=== PATIENT | female | born 1980 | race Caucasian/White ===

== ENCOUNTER 2018-03-09 13:33 | Outpatient (CLI) | payer BC, SELFPAY ==
[2018-03-11 10:55] LABS: HIV-1/2 Ag & Ab Screen Negative (NEGAT)
[2018-03-11 11:23] LABS: Hepatitis C Ab w Rflx HCV PCR Negative (NEGAT)
[2018-03-13 09:42] LABS: Hepatitis B Surface Ag Negative (NEGAT)
[2018-03-13 10:54] LABS: Syphilis Serology (RPR) Negative (Negative)
[2018-03-13 14:24] LABS: Chlamydia Result Negative; GC Result Negative; Specimen Description URINE
== END 2018-03-09 13:53 ==
PROVIDERS: PCP Family Medicine; Visit Provider Nurse Practitioner Family
DX: R30.0 Dysuria (principal); Z11.3 Encounter for screening for infections with a predominantly sexual mode of transmission; Z11.59 Encounter for screening for other viral diseases; Z11.4 Encounter for screening for human immunodeficiency virus [HIV]
CPT/HCPCS: 36415; 86803; 87340; 87389; 87491; 87591; 86592; 87086

== ENCOUNTER 2018-03-16 15:06 | Emergency (ER) | payer BC, SELFPAY ==
[2018-03-16] VITALS (46 sets, daily range): BP systolic 99–143; BP diastolic 62–91; PULSE 74–142; RESP 1–26; TEMP 36.7–36.8; O2SAT 94–100
--- NOTE | 2018-03-16 15:40 | DI.RAD_ITS ---
SYMPTOM/DIAGNOSIS: CHEST PAIN/TIGHTNESS PA AND LATERAL CHEST: Comparison is made with 27 April 2013. The cardiac and mediastinal contours have a normal appearance. The lungs are well inflated and clear. No infiltrate, effusion or pneumothorax is seen. IMPRESSION: Negative chest x-ray.
[2018-03-16 15:54] LABS: Abs Immature Grans 0.02 k/cumm (0.0-0.09); Absolute Basophil Count 0.04 k/cumm (0.0-0.2); Absolute Lymphocyte Count 2.59 k/cumm (1.2-3.4); Absolute Monocyte Count 0.66 k/cumm (0.11-0.7); Absolute Neutrophil Count 6.98 k/cumm (1.2-6.7); Basophils % 0.4; Eosinophils % 2.8; HCT 48.1 % (36.0-46.0); HGB 16.1 g/dL (12.0-15.5); Immature Grans % 0.2; Lymphocytes % 24.5; Mean Corp. HGB Concentration 33.5 g/dL (32.0-36.0); Mean Corpuscular Hemoglobin 29.8 pg (27.0-33.0); Mean Corpuscular Volume 89.1 fL (80-95); Mean Platelet Volume 10.6 fL (8.0-11.0); Monocytes % 6.2; Neutrophils % 65.9; Platelet Count 277 x1000/uL (130-400); RBC Distribution Width 13.2 % (11.7-14.6); White Blood Cell Count 10.59 k/cumm (4.4-10.8)
--- NOTE | 2018-03-16 15:57 | W.ED.GENAD ---
Discharge Plan Disposition Patient Disposition: HOME Condition: Good Discharge Details Chief Complaint: Chest Pain Clinical Impression: Chest pressure Primary Care Provider: Yvonne Ervin ED Provider: Jordan Pereira Home Meds and New Rx's Prescriptions: New cyclobenzaprine 10 mg tablet 10 mg PO TID Qty: 14 RF: 0 No Action fluconazole [Diflucan] 150 mg tablet 150 mg PO ONCE Qty: 1 RF: 1 cetirizine [Zyrtec] 10 MG tablet,chewable 10 mg PO DAILY RF: 0 diphenhydramine HCl [Benadryl Allergy] 25 MG tablet 25 mg PO Q4H PRN RF: 0 ibuprofen 800 MG tablet 800 mg PO DAILY RF: 0 metformin [Glucophage] 500 MG tablet 500 mg PO Q12H Qty: 180 RF: 3 spironolactone 50 MG tablet 50 mg PO DAILY Qty: 90 RF: 3 levalbuterol tartrate [Xopenex HFA] 15 GM HFA aerosol inhaler 200 puff Inhalation PRN PRNRF: 0 sumatriptan succinate 100 MG tablet 100 mg PO DAILY PRNRF: 0 Discharge Instructions Instructions: Chest Pain (ED) Additional Instructions: Please follow-up with your primary care provider on Tuesday at your scheduled appointment. If you notice any new or worsening of your symptoms please have a low threshold for return. If you notice any worsening of your symptoms, or any new symptoms such as vomiting, diarrhea, fever, chills, shortness of breath, chest pain, numbness, weakness, or fainting , please return immediately to the emergency department for reevaluation. Please follow up with your primary care provider as soon as possible for reassessment and reevaluation. As always, it was a pleasure participating in your medical care today. Referrals: Yvonne Ervin [Primary Care Provider] - Medical Decision Making This is a 37-year-old female with a past medical history of polycystic kidney disease, who presents today for evaluation of chest pain. It is been present for the last 4 days, it does not seem to be associated with activity/exertion/rest. She denies any family history of cardiac disease at a young age. She does not have any significant risk factors for pulmonary embolism. However her symptoms are associated with some shortness of breath and certainly a pleuritic component with her chest tightness. Patient is obese, but denies any other signs of trauma. This could be certainly musculoskeletal, stemming from intercostal rib pain. However differential although less likely does include atypical cardiac etiology, pulmonary embolism, or strain. We will evaluate and rule out these, and reassess. Of note the patient's vital signs are notably encouraging with no evidence of hypoxemia, tachypnea, tachycardia, or hypotension. EKG 15: 18 rate 82, sinus rhythm, intervals normal, no ST elevations or depressions, inverted T wave in V1. No Q waves. Questionable inverted T wave in lead III. No signs of significant right heart strain, no signs of STEMI. 8:23 PM Patient's laboratory workup is returned and demonstrates no significant abnormalities. No elevated white count, negative d-dimer, normal renal function, normal troponin, normal bilirubin. Chest x-ray has been read by radiology and demonstrates no evidence of acute process or abnormality. EKG shows no significant abnormalities. The patient still demonstrates mild tightness in her chest, now has some mild nausea. Repeat abdominal exam demonstrates no abdominal tenderness. She feels that her nausea is secondary to the tightness in her chest. Exam continues to show no signs of shingles, or other abnormality. We did give the patient a GI cocktail, but she felt that this was distasteful, and unfortunately spit most of it up. She has been able to tolerate ice well though, and shows no clinical signs on exam of obstruction, or abdominal abnormality. We did do one trial of concentrated DuoNeb, and the patient had no change in her symptoms with this. I do not think her symptoms represent a reactive airway component. In spite of negative laboratory workup, negative imaging studies, I did discuss with the patient potential further imaging with a CT scan of the chest neck and abdomen. Although I feel that there is no acute pathology on exam that I can appreciate clinically I did feel that this option would be potential with the patient's persistent symptoms. However after discussing it with the patient and the family the patient is requesting to hold off on any further CT imaging. I do feel that this is reasonable at this time. The patient's continued tightness of the chest and right shoulder, I do feel that there may be a musculoskeletal component with potential stress from her current home life, and I did give the patient Flexeril prior to discharge for potential muscle spasm.. The patient requesting to hold off on any CT imaging, I did discuss with her and her family the need for a very low threshold for return, as well as the importance of close follow-up with her primary care provider at her scheduled appointment this Tuesday. Patient agrees. We discussed red flags for which to return the patient understands. I have extensively reviewed the treatment plan and discharge instructions with the patient and their family. I have addressed all patient concerns at this time. The patient and family was made aware of what symptoms to monitor for that would warrant a return to the emergency department. Discussed the plan with the patient and family, they demonstrate verbal understanding and agreement with our assessment and plan at this time. FINDINGS: Lungs: Unremarkable. No consolidation. Pleural space: Unremarkable. No pleural effusion. No pneumothorax. Heart/Mediastinum: Unremarkable. No cardiomegaly. Bones/joints: Unremarkable. IMPRESSION: No acute findings. Dictated and Authenticated by: Stef Davis MD. HPI General Date/Time Provider Initiated Documentation: 03/16/18 15:39. HPI Narrative: This is a 37-year-old female with past medical history of allergies who presents today for evaluation of chest pain for the last 4 days. She states that it is been constant, it is described as a pressure-like sensation in her chest with some associated tightness and achiness. It initially started in her right shoulder and is now radiated to encompass her entire chest. She denies any tearing sensation, or rib pain. She denies any significant cough, fever, or chills. She states that today it has gotten slightly worse, it is resistant to any improvement with Tylenol or Motrin. It is now radiated to her neck shoulder and her jaw. She denies any exertional component, and it is not improved by rest. She denies any previous cardiac history, or any family history of cardiac disease at a young age. Past medical history is positive for polycystic ovarian syndrome, for which she takes spironolactone. She did have a hysterectomy. The patient denies any other associated symptoms at this time. Denies PE risk factors such as recent long car rides, immobilization, recent surgery, prior history of DVT or PE, family history of PE or DVT, morbid obesity, exogenous estrogen and smoking, hemoptysis, history of cancer. Patient denies any tobacco use, IV, or illicit drug use. Related Data Home Medications Medication Instructions Recorded Confirmed cetirizine [Zyrtec] 10 mg PO DAILY tab-cap 06/08/12 03/09/18 diphenhydramine HCl [Benadryl 25 mg PO Q4H PRN 08/14/12 03/09/18 Allergy] levalbuterol tartrate [Xopenex HFA] 200 puff INHALATION PRN PRN 08/16/12 03/09/18 ibuprofen 800 mg PO DAILY tab-cap 11/24/12 03/09/18 sumatriptan succinate 100 mg PO DAILY PRN 11/12/13 03/09/18 metformin [Glucophage] 500 mg PO Q12H #180 tab 05/27/17 03/09/18 spironolactone 50 mg PO DAILY #90 tab-cap 05/27/17 03/09/18 fluconazole 150 mg tablet 150 mg PO ONCE #1 tab 03/09/18 03/09/18 cyclobenzaprine 10 mg PO TID #14 tab 03/16/18 Previous Rx's Medication Instructions Recorded metformin [Glucophage] 500 mg PO Q12H #180 tab 05/27/17 spironolactone 50 mg PO DAILY #90 tab-cap 05/27/17 fluconazole 150 mg tablet 150 mg PO ONCE #1 tab 03/09/18 cyclobenzaprine 10 mg PO TID #14 tab 03/16/18 Allergies Allergy/AdvReac Type Severity Reaction Status Date / Time cefdinir [From Omnicef] Allergy Severe very Verified 03/09/18 13:01 bloody stools celecoxib [From Celebrex] Allergy Severe racing Verified 03/09/18 13:01 heart,SOB latex Allergy Unknown Verified 03/09/18 13:01 venom-honey bee Allergy Anaphylaxsi Verified 03/09/18 13:01 s TREE NUTS Allergy Severe Uncoded 02/21/17 12:51 General Stated Complaint: Chest Pain IDA: 3 Review of Systems Review of Systems All systems reviewed & are unremarkable except as noted in HPI and below PFSH Hirsutism (Acute 05/27/17) Depression (Acute 06/13/17) Celiac disease (Acute 05/27/17) Anxiety (Acute 05/27/17) Polycystic ovaries (Active 08/16/12) Vaginal hysterectomy Social History Smoking/Tobacco Use Status: Never Female Reproductive History Menstrual Menopause type: surgical History History 4 Para 2 Hx # Term Pregnancies Multiple births Hx # Pregnancies Ectopic pregnancies AB induced Hx Number of Living Children AB spontaneous Exam Narrative Exam Narrative: 1.Const: Well-nourished, Well-developed, appearing stated age 2.Eyes: PERRL, no conjunctival injection, and symmetrical lids. 3.ENT: Atraumatic external nose and ears. Moist MM. Neck: Symmetric, trachea midline, No thyromegaly. No evidence of airway compromise, or swelling in the posterior oropharynx. No evidence of mass or abnormality, carotid bruit, tenderness, tracheal deviation or other abnormality on palpation of the neck. 4.CVS: +S1/S2, No murmurs or gallops. Peripheral pulses 2+ and equal in all extremities. Brisk capillary refill in all extremities. Radial pulses +2 bilaterally. 5.RESP: Unlabored respiratory effort. Clear to auscultation bilaterally. No wheezes rales or rhonchi. No significant reproducible chest pain on exam. 6.GI: Soft, Nontender/Nondistended, No hepatosplenomegaly. No guarding or rebound. No abdominal pain on exam., No signs of an acute abdomen 7.MSK: Normocephalic/Atraumatic, Extremities w/o deformity or ttp No cyanosis or clubbing, Normal movement of all extremities 8.Skin: Warm, Dry. No rashes or lesions. 9.Neuro: television analyzer II-XII grossly intact. Sensation grossly intact, no focal neurologic deficits. 10.Psych: (AAO) x3. Appropriate mood and affect Course Vital Signs Temperature 36.7 C 03/16/18 15:12 Pulse 82 03/16/18 15:12 Respiratory Rate 16 03/16/18 15:12 Blood Pressure 143/83 H 03/16/18 15:12 Pulse Oximetry 98 03/16/18 15:12 Temperature 36.7 C 03/16/18 15:12 Pulse 87 03/16/18 15:36 Respiratory Rate 20 03/16/18 15:36 Respiratory Effort Non-Labored 03/16/18 15:37 Blood Pressure 125/86 03/16/18 15:36 Blood Pressure Position Sitting 03/16/18 15:12 Pulse Oximetry 98 03/16/18 15:36 Oxygen Delivery Method Room Air 03/16/18 15:36 Oxygen Flow Rate 0 03/16/18 15:36 Pain Level 5 12/13/18 15:36 Lab/Test Results Lab/Test Results: Laboratory Tests Range/Units 03/16/18 15:40 WBC (4.4-10.8) k/cumm 10.59 RBC (4.00-5.20) m/cumm 5.40 H Hgb (12.0-15.5) g/dL 16.1 H Hct (36.0-46.0) % 48.1 H MCV (80-95) fL 89.1 MCH (27.0-33.0) pg 29.8 MCHC (32.0-36.0) g/dL 33.5 RDW (11.7-14.6) % 13.2 Plt Count (130-400) x1000/uL 277 MPV (8.0-11.0) fL 10.6 Immature Gran % 0.2 Neutrophils % 65.9 Lymphocytes % 24.5 Monocytes % 6.2 Eosinophils % 2.8 Basophils % 0.4 Absolute Neutrophils (1.2-6.7) k/cumm 6.98 H Absolute Lymphocytes (1.2-3.4) k/cumm 2.59 Absolute Monocytes (0.11-0.7) k/cumm 0.66 Absolute Eosinophils (0.0-0.7) k/cumm 0.30 Absolute Basophils (0.0-0.2) k/cumm 0.04
[2018-03-16 16:07] LABS: ALT 28 U/L (12-78); AST 20 U/L (15-37); Albumin 4.1 g/dL (3.4-5.0); Alkaline Phosphatase 89 U/L (46-116); BUN 8 mg/dL (7-18); Bilirubin, Total 0.6 mg/dL (0.2-1.0); CREATININE 0.85 mg/dL (0.55-1.02); Calcium 8.8 mg/dL (8.5-10.1); Chloride 100 mmol/L (98-107); Glucose 92 mg/dL (70-100); Potassium 3.7 mmol/L (3.5-5.1); Sodium 139 mmol/L (136-145); Total Protein 8.2 g/dL (6.4-8.2)
[2018-03-16 16:09] LABS: Troponin I < 0.02 ng/mL (0.00-0.06)
[2018-03-16 16:33] LABS: D-Dimer 249 ng/mlFEU (<500)
--- NOTE | 2018-03-16 17:07 | NUR.NOTE ---
Nursing Note:Pt off unit to xray, toradol ordered, will medicate once patient is back on unit.
[2018-03-16] MEDS: Ketorolac 30 MG/ML VIAL 15 MG IVP (17:30)
--- NOTE | 2018-03-16 17:31 | DI.VRAD_ITS ---
EXAM: XR Chest, 2 Views EXAM DATE/TIME: 03/16/2018 5:12 PM CLINICAL HISTORY: 37 years old, female; Pain and signs and symptoms; Other: Chest tightness; Chest pain TECHNIQUE: XR of the chest, 2 views. COMPARISON: CR ABD FLAT UPRIGHT PA CHEST 04/27/2013 5:43 PM FINDINGS: Lungs: Unremarkable. No consolidation. Pleural space: Unremarkable. No pleural effusion. No pneumothorax. Heart/Mediastinum: Unremarkable. No cardiomegaly. Bones/joints: Unremarkable. IMPRESSION: No acute findings. Dictated and Authenticated by: Stef Davis MD. Ordering:JOSE MIGUEL Ortega MD
--- NOTE | 2018-03-16 18:20 | NUR.NOTE ---
Nursing Note:Lab in room for repeat troponin draw. pt in no acute distress. appears more comfortable.
[2018-03-16 19:04] LABS: Troponin I < 0.02 ng/mL (0.00-0.06)
[2018-03-16] MEDS: Ondansetron 4 MG/2 ML VIAL (19:25)
[2018-03-16] MEDS: Albuterol/Ipratropium 3 ML UPD VIAL UPD (19:42)
--- NOTE | 2018-03-16 19:53 | NUR.NOTE ---
Nursing Note: Pt with c/o nausea and vomiting. medicated as ordered .
[2018-03-16] MEDS: Cyclobenzaprine 10 MG TAB PO (20:28)
== END 2018-03-16 20:39 | disposition home or self-care (01) ==
PROVIDERS: Emergency Provider Student in an Organized Health Care Education/Training Program; PCP Nurse Practitioner
DX: R07.89 Other chest pain (principal); R06.02 Shortness of breath
CPT/HCPCS: 80053; 93005; 94640; 96374; 99285; 71046; 84484; 85025; 85379; 93010; J1885; J2405; J7620

== ENCOUNTER 2018-03-20 10:57 | Outpatient (REF) | payer BC, SELFPAY ==
[2018-03-20 12:11] LABS: Iron 37 ug/dL (50-175); Total Iron Binding Capacity 338 ug/dL (250-450); Transferrin Sat 11 % (15-50)
[2018-03-20 12:23] LABS: Cholesterol 150 mg/dL (50-200); Ferritin 46 ng/mL (8-388); HDL Cholesterol 51 mg/dL (40-60); LDL CHOLESTEROL 63 mg/dL (<100); Triglyceride 112 mg/dL (30-150)
== END 2018-03-20 11:17 ==
LOC: NCHCO 10:57
PROVIDERS: PCP Nurse Practitioner; Visit Provider Nurse Practitioner
DX: K76.0 Fatty (change of) liver, not elsewhere classified (principal)
CPT/HCPCS: 36415; 80061; 83721; 82728; 83540; 83550

== ENCOUNTER 2019-01-24 10:28 | Outpatient (CLI) | payer BC, SELFPAY ==
--- NOTE | 2019-01-24 09:08 | DI.RAD_ITS ---
EXAM: XR SHOULDER LT COMPLETE 2+V INDICATION: SHOULDER PAIN. COMPARISON: No exams were available for comparison TECHNIQUE: 2D digital imaging was performed. FINDINGS: The bony structures are normally mineralized. The glenohumeral and AC joints are well maintained. T here is no evidence of a fracture or dislocation.
== END 2019-01-24 10:48 ==
PROVIDERS: PCP Nurse Practitioner; Visit Provider Student in an Organized Health Care Education/Training Program
DX: M25.512 Pain in left shoulder (principal)
CPT/HCPCS: 73030

== ENCOUNTER 2019-03-12 14:09 | Outpatient (CLI) | payer BC, SELFPAY ==
[2019-03-12 15:26] LABS: ALT 34 U/L (14-59); AST 23 U/L (15-37)
== END 2019-03-12 14:29 ==
PROVIDERS: PCP Nurse Practitioner; Visit Provider Nurse Practitioner Family
DX: Z87.42 Personal history of other diseases of the female genital tract (principal)
CPT/HCPCS: 36415; 84450; 84460

== ENCOUNTER 2020-01-02 19:31 | Outpatient (REF) | payer BC, SELFPAY ==
[2020-01-04 21:16] LABS: Patient Race White; SARS-CoV-2 RNA Undetected (Undetected); SARS-CoV-2 Specimen Source Nasal
== END 2020-01-02 19:51 ==
LOC: NCHCN 19:31
PROVIDERS: PCP Nurse Practitioner; Visit Provider Nurse Practitioner Family
DX: Z20.828 Contact with and (suspected) exposure to other viral communicable diseases (principal)
CPT/HCPCS: U0003

== ENCOUNTER 2020-04-16 02:32 | Outpatient (CLI) | payer BC, SELFPAY ==
--- NOTE | 2020-04-16 07:30 | DI.MAMMO_ITS ---
EXAM: MG MAMMO SCREENING CLINICAL HISTORY: screening. TECHNIQUE: Bilateral full field digital CC and MLO mammographic images were obtained with 3D tomosyn thesis and utilizing computer aided detection (CAD). COMPARISON: None. This is a baseline mammogram. FINDINGS: There are no CAD designations. There are no spiculated masses nor malignant appearing microcalcification groups. There is no signif icant architectural distortion nor skin thickening-retraction. IMPRESSION: No radiographic evidence of malignancy. BI-RADS Category 1 - Negative Breast Density - Category B - Scattered areas of fibroglandular density Breast density Category C or D implies that the patient has dense breast tissue. Dense breast tissue can make it harder to find cancer on a mammogram. Dense breast tissue is also associated with an incr eased risk of breast cancer. This information about the result of the mammogram report was provided to the patient to raise their awareness. Use this report when you speak with the patient about their risks for breast cancer, which includes their family history. At that time, you may recommend additional screening tests (Ultrasoun d or MRI) as these tests may add significant information. A negative radiographic report should not delay biopsy if a dominant or clinically suspicious mass is present. Up to ten percent of cancers are not identified on mammography. A negative report may reinforce clinical impression. Adenosis and dense breasts may obscure an underlying neoplasm. False positive reports average 6 to 10%. Patient will receive a letter notifying them of these results.
[2020-04-16 10:17] LABS: ALT 36 U/L (14-59); AST 26 U/L (15-37)
== END 2020-04-16 02:52 ==
PROVIDERS: PCP Nurse Practitioner; Visit Provider Nurse Practitioner Family
DX: Z12.31 Encounter for screening mammogram for malignant neoplasm of breast (principal); Z87.42 Personal history of other diseases of the female genital tract
CPT/HCPCS: 36415; 77063; 77067; 84450; 84460

== ENCOUNTER 2020-08-06 18:40 | Inpatient (IN) | payer BC, SELFPAY ==
[2020-08-06] VITALS (38 sets, daily range): BP systolic 126–146; BP diastolic 91–110; PULSE 91–127; RESP 13–28; TEMP 36.3–36.4; O2SAT 94–97
[2020-08-06 19:35] LABS: Abs Immature Grans 0.04 10^3/uL (0.0-0.06); Absolute Basophil Count 0.05 10^3/uL (0.0-0.2); Absolute Eosinophil Count 0.23 10^3/uL (0.0-0.7); Absolute Lymphocyte Count 1.94 10^3/uL (1.2-3.4); Absolute Monocyte Count 0.61 10^3/uL (0.1-0.8); Absolute Neutrophil Count 7.56 10^3/uL (1.2-6.7); Basophils % 0.5; Eosinophils % 2.2; HCT 48.4 % (36.0-46.0); HGB 16.5 g/dL (11.2-15.7); Immature Grans % 0.4; Lymphocytes % 18.6; MCH 29.9 pg (27.0-33.0); MCHC 34.1 % (32.0-36.0); MCV 87.7 fL (80-95); MPV 11.1 fL (8.0-11.0); Monocytes % 5.8; Neutrophils % 72.5; Nucleated RBC 0 %; Platelet Count 247 10^3/uL (130-400); RBC 5.52 10^6/uL (3.93-5.22); RDW-SD 38.5 fL; WBC 10.43 10^3/uL (4.4-10.8)
--- NOTE | 2020-08-06 19:47 | W.ED.GENAD ---
Discharge Plan Disposition Patient Disposition: [facility] INPATIENT Discharge Details Chief Complaint: GenMedical Clinical Impression: Diabetes mellitus, Hyperosmolar hyperglycemic state (HHS) Admit Date/Time: 08/06/20 21:09 Admit Provider: Quique Almeida Attending Provider: Quique Almeida Primary Care Provider: Yvonne Ervin ED Provider: Misael Smith Discharge Instructions Activity:: Activity as Tolerated Equipment/Supplies:: Bonny 2 glucometer Diet:: Carb Counting Discharge Orders Discharge Orders: Discharge Order (Routine); Ordered 08/10/20 Ordered By: Marylu Mclaughlin Discharge Data Discharge Date/Time-TO BE ENTERED AT DEPARTURE: 08/06/20 22:38 Medical Decision Making 1952 -- 40-year-old female sent from [facility] with concern for new onset diabetes, significantly elevated blood sugar and ketones in her urine today. She has had progressive worsening vision over the past 2 weeks with associated polydipsia and polyuria. Concern for DKA versus HHNK versus diabetes insipidus. Will give IV crystalloid bolus. Plan to check labs and CT head. 1826 --Initial labs reviewed and glucose is dated 718, anion gap not significantly elevated 11.1 but does have ketones in his urine. Potassium is normal at 4.8. Mild hyponatremia 129 noted. I suspect that Metformin prescription which patient is taking for polycystic ovarian syndrome maybe influencing pathophysiology. Post HHNK and DKA remain on differential. Patient receiving IV fluid bolus and will initiate treatment with insulin infusion. --CT of the head was interpreted by radiology: No acute intracranial process. There is no intracranial mass or mass-effect. -- I spoke with hospitalist continuity manager, discussed ED presentation and course. He will admit patient. HPI General Mode of arrival: ambulatory. Date/Time Provider Initiated Documentation: 08/06/20 19:00. Limitations to Documentation: no limitations. Information obtained by: patient. HPI Narrative: 40-year-old female with history of PCOS, celiac disease, presents with chief complaint of abnormal blood sugar. Patient notes over the past 2 weeks she has had progressively worsening vision. Patient states that visual symptoms started about 24 hours after second [place] vaccine. She also notes associated probably diphtheria and polyuria. No dysuria. She states that she went to the eye doctor yesterday who noted significant concern for metabolic derangement and referred the patient to primary care physician. Unfortunately her primary care physician could not see her today and they recommended she go to [facility]. At [facility] she was found to have significant elevated blood sugar, elevated hemoglobin A1c, ketones in her urine. Patient does take methotrexate for PCOS since 2011. Patient denies modifiers. Related Data Home Medications Medication Instructions Recorded Confirmed cetirizine [Zyrtec] 10 mg PO DAILY tab-cap 06/08/12 08/06/20 diphenhydramine HCl [Benadryl 25 mg PO Q4H PRN 08/14/12 08/06/20 Allergy] sumatriptan succinate 100 mg PO DAILY PRN 11/12/13 08/06/20 cyclobenzaprine 10 mg PO TID #14 tab 03/16/18 08/06/20 albuterol sulfate 90 mcg/actuation 2 puff IH Q6H PRN 03/12/19 08/06/20 aerosol inhaler estradiol 10 mcg vaginal tablet 10 mcg VAGINAL DAILY 14 Days #24 03/24/20 08/06/20 tab spironolactone 50 mg tablet 50 mg PO DAILY #90 tab-cap 04/24/20 08/06/20 Flovent HFA 2 puff INHALATION BID 08/07/20 08/07/20 blood sugar diagnostic [FreeStyle #150 ea NS 08/10/20 Precision Michael Strips] diclofenac sodium 4 g TOPICAL QID PRN #100 g 08/10/20 flash glucose sensor [FreeStyle #4 ea 08/10/20 Bonny 2 Sensor] insulin aspart U-100 [Novolog 15 unit SUBCUT AC #15 ml 08/10/20 Flexpen U-100 Insulin] insulin glargine [Lantus Solostar 35 unit SUBCUT HS #15 ml 08/10/20 U-100 Insulin] lancets [Lancets,Ultra Thin] #200 ea 08/10/20 magnesium oxide 400 mg PO BID #60 tab 08/10/20 metformin 1,000 mg PO BID #60 tab 08/10/20 miconazole nitrate [Miconazole 7] 1 appful VAGINAL QHS 7 Days g 08/10/20 omeprazole 20 mg PO DAILY #30 cap 08/10/20 potassium chloride [Klor-Con M20] 20 meq PO BID #60 tab 08/10/20 Previous Rx's Medication Instructions Recorded cyclobenzaprine 10 mg PO TID #14 tab 03/16/18 estradiol 10 mcg vaginal tablet 10 mcg VAGINAL DAILY 14 Days #24 03/24/20 tab spironolactone 50 mg tablet 50 mg PO DAILY #90 tab-cap 04/24/20 blood sugar diagnostic [FreeStyle #150 ea NS 08/10/20 Precision Michael Strips] diclofenac sodium 4 g TOPICAL QID PRN #100 g 08/10/20 flash glucose sensor [FreeStyle #4 ea 08/10/20 Bonny 2 Sensor] insulin aspart U-100 [Novolog 15 unit SUBCUT AC #15 ml 08/10/20 Flexpen U-100 Insulin] insulin glargine [Lantus Solostar 35 unit SUBCUT HS #15 ml 08/10/20 U-100 Insulin] lancets [Lancets,Ultra Thin] #200 ea 08/10/20 magnesium oxide 400 mg PO BID #60 tab 08/10/20 metformin 1,000 mg PO BID #60 tab 08/10/20 miconazole nitrate [Miconazole 7] 1 appful VAGINAL QHS 7 Days g 08/10/20 omeprazole 20 mg PO DAILY #30 cap 08/10/20 potassium chloride [Klor-Con M20] 20 meq PO BID #60 tab 08/10/20 Allergies Allergy/AdvReac Type Severity Reaction Status Date / Time cefdinir [From Omnicef] Allergy Severe very Verified 08/06/20 18:52 bloody stools celecoxib [From Celebrex] Allergy Severe racing Verified 08/06/20 18:52 heart,SOB influenza A (H1N1) virus Allergy Severe pain in Verified 08/06/20 18:52 vaccine m-guero-split 2009 the whole [From influenza A (H1N1)] left side of her body. latex Allergy Unknown Verified 08/06/20 18:52 venom-honey bee Allergy Anaphylaxsi Verified 08/06/20 18:52 s amoxicillin [From Augmentin] AdvReac Skin Rash Verified 08/06/20 18:52 clavulanic acid AdvReac Skin Rash Verified 08/06/20 18:52 [From Augmentin] TREE NUTS Allergy Severe Uncoded 08/06/20 18:52 General Stated Complaint: GenMedical IDA: 3 Review of Systems All systems reviewed & are unremarkable except as noted in HPI and below Constitutional Constitutional: Denies fever(s) Gastrointestinal Gastrointestinal: Denies abdominal pain Genitourinary Genitourinary: Reports as per HPI Endocrine Endocrine: Reports as per HPI [facility] Medical History (Updated 08/10/20 @ 15:23 by Misael Smith MD) Anxiety (05/27/17) Celiac disease (05/27/17) Depression (06/13/17) Hirsutism (05/27/17) Musculoskeletal pain, chronic Polycystic ovaries (08/16/12) Surgical History Vaginal hysterectomy 2012 Dr Allen Family History Mother Liver cancer at 58 Stroke Uterine cancer Father Diabetes Paternal Aunt Breast cancer Social History Smoking/Tobacco Use Status: Never Smoking risk assessment performed?: Yes Drug use: Never Current gender identity: female Do you feel safe in your relationship?: Yes Female Reproductive History Menstrual Menopause type: surgical History History 4 Para 2 Hx # Term Pregnancies Multiple births Hx # Pregnancies Ectopic pregnancies AB induced Hx Number of Living Children AB spontaneous Exam Const General: cooperative and no acute distress HENMT Head: normocephalic Mouth: mucous membranes dry Eyes Conjunctivae: normal conjunctivae Sclera: normal sclerae Neck Neck: trachea midline and supple Resp Auscultation: clear to auscultation bilaterally, no rales, no rhonchi and no wheezes Cardio Rate: tachycardic Rhythm: regular rhythm GI Palpation: soft, not firm, no guarding, no masses, not rigid and nontender Skin General skin exam: no rashes or lesions noted Neuro General: patient alert, patient awake, patient oriented x3 and tone normal Extrem General: no edema Psych Appearance: grossly normal Mental Status: mental status grossly normal Course Vital Signs Vital signs: Vital Signs Temperature 36.4 C L 08/06/20 18:47 Pulse 115 H 08/06/20 18:47 Respiratory Rate 16 08/06/20 18:47 Blood Pressure 129/102 H 08/06/20 18:47 Pulse Oximetry 96 08/06/20 18:47 Temperature 36.4 C L 08/06/20 18:47 Temperature Source Skin 08/06/20 18:47 Pulse 115 H 05/05/21 18:47 Respiratory Rate 16 08/06/20 18:47 Respiratory Effort Non-Labored 08/06/20 19:38 Respiratory Depth Normal 08/06/20 19:38 Respiratory Pattern Normal 08/06/20 19:38 Blood Pressure 129/102 H 08/06/20 18:47 Blood Pressure Position Sitting 08/06/20 18:47 Pulse Oximetry 96 08/06/20 18:47 Oxygen Delivery Method Room Air 08/06/20 18:47 Oxygen Flow Rate 0 08/06/20 18:47 Pain Level 3 08/06/20 18:47 Lab/Test Results Lab/Test Results: Laboratory Tests Range/Units 08/06/20 19:30 WBC (4.4-10.8) 10^3/uL 10.43 RBC (3.93-5.22) 10^6/uL 5.52 H Hgb (11.2-15.7) g/dL 16.5 H Hct (36.0-46.0) % 48.4 H MCV (80-95) fL 87.7 MCH (27.0-33.0) pg 29.9 MCHC (32.0-36.0) % 34.1 RDW (11.7-14.6) % 12.0 Plt Count (130-400) 10^3/uL 247 MPV (8.0-11.0) fL 11.1 H Immature Gran % 0.4 Neutrophils % 72.5 Lymphocytes % 18.6 Monocytes % 5.8 Eosinophils % 2.2 Basophils % 0.5 Nucleated RBC % % 0 Absolute Neutrophils (1.2-6.7) 10^3/uL 7.56 H Absolute Lymphocytes (1.2-3.4) 10^3/uL 1.94 Absolute Monocytes (0.1-0.8) 10^3/uL 0.61 Absolute Eosinophils (0.0-0.7) 10^3/uL 0.23 Absolute Basophils (0.0-0.2) 10^3/uL 0.05 Critical Care Time Critical Care Time Critical Care Time: Yes Total Critical Care Time: 45 Attestation: I spent greater than 45 minutes addressing this patient's immediate life threats. Please see MDM section of note. This time was spent engaged in work directly related to the patient's care, exclusive of separate procedures, and failure to initiate these interventions would have likely resulted in clinically significant or life threatening deterioration in the patient's condition.
[2020-08-06 19:54] LABS: Bilirubin Negative (Negative); Blood Negative (Negative); Clarity Clear (Clear); Glucose 500 mg/dL (Negative); Ketones 40 mg/dL (Negative); Leukocyte Esterase Negative (Negative); Nitrite Negative (Negative); Specific Gravity <= 1.005 (1.005-1.025); Urobilinogen 0.2 EU/dL (Up TO 0.2)
[2020-08-06 19:56] LABS: ALT 51 U/L (14-59); AST 30 U/L (15-37); Albumin 4.1 g/dL (3.4-5.0); Alkaline Phosphatase 113 U/L (46-116); Anion Gap 11.1 mmol/L (3-11); BUN 12 mg/dL (7-18); Bilirubin, Total 0.9 mg/dL (0.2-1.0); CO2 25.9 mmol/L (21.0-32.0); CREATININE 1.1 mg/dL (0.55-1.02); Calcium 9.4 mg/dL (8.5-10.1); Chloride 92 mmol/L (98-107); Estimated GFR 54.47 (mL/min/1.73m2); Potassium 4.8 mmol/L (3.5-5.1); Sodium 129 mmol/L (136-145); Total Protein 7.7 g/dL (6.4-8.2)
[2020-08-06 19:58] LABS: Glucose 718 mg/dL (74-106)
--- NOTE | 2020-08-06 20:00 | DI.CT_ITS ---
Exam(s) CT HEAD WO EXAM: CT HEAD WO CLINICAL HISTORY: visual changes, ?diabetes insipitus. TECHNIQUE: Imaging Protocol: Axial computed tomography images with coronal and sagittal reformatted images were created and reviewed COMPARISON: CT HEAD WITHOUT CONTRAST from 11/12/2013 FINDINGS: The ventricular system is normal in appearance. No evidence of acute intracranial hemorrhage, mass effect, or midline shift. The orbital structures are unremarkable. The temporal bone structures appear intact. Calvarium: Normal. Visualized Paranasal sinuses/Mastoids: Clear. IMPRESSION: Normal cranial CT. RADIATION DOSE DELIVERED: 732.73mGy.cm Total DLP 732.73mGy.cm Total DLP DATA REPOSITORY: All CT scans at this facility are submitted to the National Radiology Data Registry (NRDR) Dose Index Registry (DIR) with the [employer] ([employer]). RADIATION OPTIMIZATION: All CT scans at this facility use at least one of these dose optimization te chniques: automated exposure control; mA and/or kV adjustment per patient size (includes targeted exa ms where dose is matched to clinical indication); or iterative reconstruction.
[2020-08-06] MEDS: Normal Saline 1,000 ML 1000 ML IV (20:07)
[2020-08-06 20:21] LABS: BE (Venous) 2 mmol/L (-2-3); HCO3 (Venous) 27 mmol/L (23-28); O2 Sat (Venous) 76 %; TCO2 (Venous) 24 mmol/L (24-29); pCO2 (Venous) 46 mmHg (41-51); pH (Venous) 7.38 (7.31-7.41); pO2 (Venous) 41 mmHg
[2020-08-06 20:28] LABS: Troponin I < 0.05 ng/mL (<0.06)
[2020-08-06] MEDS: POTASSIUM CHLORIDE 20 MEQ/100 ML BAG 50 MEQ IVPB (21:02)
[2020-08-06 21:21] LABS: Anion Gap 8.3 mmol/L (3-11); BUN 11 mg/dL (7-18); CO2 27.7 mmol/L (21.0-32.0); CREATININE 1.1 mg/dL (0.55-1.02); Calcium 8.7 mg/dL (8.5-10.1); Chloride 97 mmol/L (98-107); Estimated GFR 54.47 (mL/min/1.73m2); Potassium 4.5 mmol/L (3.5-5.1); Sodium 133 mmol/L (136-145)
[2020-08-06 21:23] LABS: Glucose 547 mg/dL (74-106)
--- NOTE | 2020-08-06 21:30 | DI.VRAD_ITS ---
PROCEDURE INFORMATION: Exam: CT Head Without Contrast Exam date and time: 08/06/2020 8:06 PM Age: 40 years old Clinical indication: Other: Visual changes, ? diabetes insipitus TECHNIQUE: Imaging protocol: Computed tomography of the head without contrast. Radiation optimization: All CT scans at this facility use at least one of these dose optimization techniques: automated exposure control; mA and/or kV adjustment per patient size (includes targeted exams where dose is matched to clinical indication); or iterative reconstruction. COMPARISON: CT HEAD WITHOUT CONTRAST 11/12/2013 4:25 PM FINDINGS: Brain: There is no evidence for acute intra-axial or extra-axial hemorrhage. There is no intracranial mass or mass effect. The basilar cisterns are patent. There is normal paredes-white differentiation throughout the brain. There is no CT evidence of acute cortical infarct. Cerebral ventricles: The ventricles, cisterns and sulci are normal in size for the patient's age. Bones/joints: Unremarkable. No acute fracture. Paranasal sinuses: Visualized sinuses are unremarkable. No fluid levels. Mastoid air cells: Visualized mastoid air cells are well aerated. Soft tissues: Unremarkable. IMPRESSION: No acute intracranial process identified. Dictated and Authenticated by: Quique Coleman MD. Ordering:DUNCAN Douglas MD
--- NOTE | 2020-08-06 22:08 | W.PM.HP.N ---
Date of service: 08/06/20 Time of Service: 22:08 Assessment and Plan Assessment and plan (1) Diabetes mellitus: Status: Chronic Assessment and plan: Blood sugars improved with insulin infusion. Repeat labs are pending. She will be admitted to the intensive care unit and insulin infusion will be continued. She does not appear to have diabetes ketoacidosis. (2) PCOS (polycystic ovarian syndrome): Status: Acute (3) Hyponatremia: Status: Acute Assessment and plan: This will be rechecked soon. The hyperglycemia is likely causing the relative hyponatremia. History of Present Illness History of Present Illness Chief Complaint: Polydipsia and polyuria, and blurred vision Narrative: This 40-year-old female has had 2 weeks of blurred vision. She feels like she has been looking through water. In the last 6 days she has had continued blurred vision but has also had polyuria and polydipsia. She thought it may have been a reaction to his second coronavirus vaccine. She saw the eye doctor yesterday who was not sure what was going on with her vision and she went to the [facility] clinic today and was found to have a blood sugar higher than test machine could quantify. She was sent to the emergency department for evaluation. On presentation here she was found to have blood sugar 700. She was given intravenous saline bolus and started on insulin drip. She is perhaps her symptoms are related to allergies. She has had some discomfort in her calfs as well as some discomfort when she moves her eyes. She thought her symptoms might have been related to allergies. She has been on Metformin for many years for polycystic ovaries. She says in the past her blood sugar is low. She is 4 para 2 with 2 living children and has not had diabetes during her . Her father was recently diagnosed with diabetes in her maternal grandfather also has had diabetes with his older years. Review of Systems Constitutional Constitutional: Denies fever(s) Eyes Eyes: Reports blurry vision and Denies loss of vision ENT Ears, Nose, Mouth, and Throat: Denies dysphagia, Reports dry mouth and Reports disequilibrium Cardiovascular Cardiovascular: Denies chest pain with activity, Denies leg edema and Denies dyspnea Respiratory Respiratory: Denies dyspnea Gastrointestinal Gastrointestinal: Denies constipation, Denies dysphagia, Reports heartburn, Denies diarrhea and Denies nausea Genitourinary Genitourinary: Reports urinary urgency Neurologic Neurologic: Denies loss of vision, Denies tremor(s) and Reports disequilibrium [facility] Medical History Anxiety (05/27/17) Celiac disease (05/27/17) Depression (06/13/17) Hirsutism (05/27/17) Polycystic ovaries (08/16/12) Surgical History Vaginal hysterectomy 2012 Dr Allen Family History Mother Liver cancer at 58 Stroke Uterine cancer Father Diabetes Paternal Aunt Breast cancer Social History Smoking/Tobacco Use Status: Never Smoking risk assessment performed?: Yes Drug use: Never Current gender identity: female Do you feel safe in your relationship?: Yes Female Reproductive History Menstrual Menopause type: surgical History History 4 Para 2 Hx # Term Pregnancies Multiple births Hx # Pregnancies Ectopic pregnancies AB induced Hx Number of Living Children AB spontaneous Meds Allergies and Home Medications Allergies Allergy/AdvReac Type Severity Reaction Status Date / Time cefdinir [From Omnicef] Allergy Severe very Verified 08/06/20 18:52 bloody stools celecoxib [From Celebrex] Allergy Severe racing Verified 08/06/20 18:52 heart,SOB influenza A (H1N1) virus Allergy Severe pain in Verified 08/06/20 18:52 vaccine m-guero-split 2009 the whole [From influenza A (H1N1)] left side of her body. latex Allergy Unknown Verified 08/06/20 18:52 venom-honey bee Allergy Anaphylaxsi Verified 08/06/20 18:52 s amoxicillin [From Augmentin] AdvReac Skin Rash Verified 08/06/20 18:52 clavulanic acid AdvReac Skin Rash Verified 08/06/20 18:52 [From Augmentin] TREE NUTS Allergy Severe Uncoded 08/06/20 18:52 Home Medications Medication Instructions Recorded Confirmed Type cetirizine [Zyrtec] 10 mg PO DAILY tab-cap 06/08/12 08/06/20 History diphenhydramine HCl [Benadryl 25 mg PO Q4H PRN 08/14/12 08/06/20 History Allergy] ibuprofen 800 mg PO DAILY tab-cap 11/24/12 08/06/20 History sumatriptan succinate 100 mg PO DAILY PRN 11/12/13 08/06/20 History cyclobenzaprine 10 mg PO TID #14 tab 03/16/18 08/06/20 Rx albuterol sulfate 90 mcg/actuation 2 puff IH Q6H PRN 03/12/19 08/06/20 History aerosol inhaler estradiol 10 mcg vaginal tablet 10 mcg VAGINAL DAILY 14 Days #24 03/24/20 08/06/20 Rx tab fluticasone propionate 220 1 puff INHALATION BID 03/24/20 08/06/20 History mcg/actuation HFA aerosol inhaler metformin 500 mg tablet 500 mg PO Q12H #180 tab 03/24/20 08/06/20 Rx spironolactone 50 mg tablet 50 mg PO DAILY #90 tab-cap 04/24/20 08/06/20 Rx Exam Const General: cooperative Nutritional Appearance: overweight Orientation: alert and awake Limitations: mental status not altered HENMT Head: normal to inspection and normocephalic Mouth: oral mucosae normal Eyes General: appearance normal, both eyes and all related structures Neck Neck: normal visual inspection Lymphatic: no lymphadenopathy noted Resp Effort & Inspection: normal respiratory effort Auscultation: no rales, no rhonchi and no wheezes Cardio Jugular venous pressure: no JVD Heart Sounds: S1 normal, S2 normal, no gallops and no murmurs GI Inspection: normal to inspection Palpation: no hepatosplenomegaly and nontender Neuro General: patient alert Cranial Nerves: CN's II-XI intact bilaterally Extrem Right upper extremity: no edema Left upper extremity: no edema Results Labs Result diagrams: 08/06/20 19:30 08/06/20 21:00 Labs: Laboratory Results - last 24 hr 08/06/20 08/06/20 08/06/20 19:30 19:30 19:30 WBC 10.43 RBC 5.52 H Hgb 16.5 H Hct 48.4 H MCV 87.7 MCH 29.9 MCHC 34.1 RDW 12.0 Plt Count 247 MPV 11.1 H Immature Gran % 0.4 Neutrophils % 72.5 Lymphocytes % 18.6 Monocytes % 5.8 Eosinophils % 2.2 Basophils % 0.5 Nucleated RBC % 0 Absolute Neutrophils 7.56 H Absolute Lymphocytes 1.94 Absolute Monocytes 0.61 Absolute Eosinophils 0.23 Absolute Basophils 0.05 VBG pH VBG pCO2 VBG pO2 VBG HCO3 VBG Total CO2 VBG O2 Saturation VBG Base Excess Sodium 129 L Potassium 4.8 Chloride 92 L Carbon Dioxide 25.9 Anion Gap 11.1 H BUN 12 Creatinine 1.1 H Estimated GFR/1.73 m2 54.47 Glucose 718 H* Calcium 9.4 Total Bilirubin 0.9 AST 30 ALT 51 Alkaline Phosphatase 113 Troponin I < 0.05 Total Protein 7.7 Albumin 4.1 Urine Color Urine Clarity Urine pH Ur Specific [place] Urine Protein Urine Ketones Urine Blood Urine Nitrite Urine Bilirubin Urine Urobilinogen Ur Leukocyte Esterase Urine Glucose 08/06/20 08/06/20 08/06/20 19:49 20:16 21:00 WBC RBC Hgb Hct MCV MCH MCHC RDW Plt Count MPV Immature Gran % Neutrophils % Lymphocytes % Monocytes % Eosinophils % Basophils % Nucleated RBC % Absolute Neutrophils Absolute Lymphocytes Absolute Monocytes Absolute Eosinophils Absolute Basophils VBG pH 7.38 VBG pCO2 46 VBG pO2 41 VBG HCO3 27 VBG Total CO2 24 VBG O2 Saturation 76 VBG Base Excess 2 Sodium 133 L Potassium 4.5 Chloride 97 L Carbon Dioxide 27.7 Anion Gap 8.3 BUN 11 Creatinine 1.1 H Estimated GFR/1.73 m2 54.47 Glucose 547 H* D Calcium 8.7 Total Bilirubin AST ALT Alkaline Phosphatase Troponin I Total Protein Albumin Urine Color Yellow Urine Clarity Clear Urine pH 6.0 Ur Specific [place] <= 1.005 Urine Protein Negative Urine Ketones 40 H Urine Blood Negative Urine Nitrite Negative Urine Bilirubin Negative Urine Urobilinogen 0.2 Ur Leukocyte Esterase Negative Urine Glucose 500 H 08/06/20 22:30 WBC RBC Hgb Hct MCV MCH MCHC RDW Plt Count MPV Immature Gran % Neutrophils % Lymphocytes % Monocytes % Eosinophils % Basophils % Nucleated RBC % Absolute Neutrophils Absolute Lymphocytes Absolute Monocytes Absolute Eosinophils Absolute Basophils VBG pH VBG pCO2 VBG pO2 VBG HCO3 VBG Total CO2 VBG O2 Saturation VBG Base Excess Sodium Cancelled Potassium Cancelled Chloride Cancelled Carbon Dioxide Cancelled Anion Gap Cancelled BUN Cancelled Creatinine Cancelled Estimated GFR/1.73 m2 Cancelled Glucose Cancelled Calcium Cancelled Total Bilirubin AST ALT Alkaline Phosphatase Troponin I Total Protein Albumin Urine Color Urine Clarity Urine pH Ur Specific [place] Urine Protein Urine Ketones Urine Blood Urine Nitrite Urine Bilirubin Urine Urobilinogen Ur Leukocyte Esterase Urine Glucose Last Vital Signs Temp 36.4 C L 08/06/20 18:47 Pulse 96 H 08/06/20 21:00 Resp 22 08/06/20 21:30 BP 126/94 H 08/06/20 21:00 Pulse Ox 94 08/06/20 21:30 COVID-19 Screening Have you, or household traveled for leisure in last 14 days?: No Had IN PERSON contact w/suspected or confirmed C-19 person: No
[2020-08-06] MEDS: INSULIN REGULAR IN 0.9 % NACL 100 UNIT/100 ML BAG 11.5 UNIT IV (22:21)
[2020-08-06 22:44] LABS: Source Nasal/Nares
[2020-08-06 23:24] LABS: Anion Gap 10.7 mmol/L (3-11); BUN 9 mg/dL (7-18); CO2 24.3 mmol/L (21.0-32.0); CREATININE 0.9 mg/dL (0.55-1.02); Calcium 8.5 mg/dL (8.5-10.1); Chloride 99 mmol/L (98-107); Sodium 134 mmol/L (136-145)
[2020-08-06 23:30] LABS: Glucose 411 mg/dL (74-106)
[2020-08-06 23:59] LABS: Magnesium 1.8 mg/dL (1.8-2.4); PHOSPHORUS 2.4 mg/dL (2.6-4.7)
[2020-08-07] VITALS (134 sets, daily range): BP systolic 102–155; BP diastolic 68–101; PULSE 77–137; RESP 12–29; TEMP 36.3–36.6; O2SAT 88–98
[2020-08-07 00:41] LABS: COVID-19 PCR Negative (Negative)
[2020-08-07] MEDS: Enoxaparin 40 MG/0.4 ML SYR SC ×2 (01:24→21:27)
[2020-08-07 04:12] LABS: Anion Gap 8.2 mmol/L (3-11); BUN 8 mg/dL (7-18); CO2 24.8 mmol/L (21.0-32.0); CREATININE 0.7 mg/dL (0.55-1.02); Chloride 104 mmol/L (98-107); Glucose 261 mg/dL (74-106); Potassium 3.2 mmol/L (3.5-5.1); Sodium 137 mmol/L (136-145)
[2020-08-07] MEDS: DEXTROSE 5%-0.9% SALINE 1,000 ML 125 ML IV (04:12)
[2020-08-07 06:34] LABS: Abs Immature Grans 0.03 10^3/uL (0.0-0.06); Absolute Basophil Count 0.04 10^3/uL (0.0-0.2); Absolute Eosinophil Count 0.44 10^3/uL (0.0-0.7); Absolute Lymphocyte Count 3.22 10^3/uL (1.2-3.4); Absolute Monocyte Count 0.64 10^3/uL (0.1-0.8); Absolute Neutrophil Count 5.82 10^3/uL (1.2-6.7); Basophils % 0.4; Eosinophils % 4.3; HCT 40.6 % (36.0-46.0); Immature Grans % 0.3; Lymphocytes % 31.6; MCHC 34.5 % (32.0-36.0); MCV 87.1 fL (80-95); MPV 10.9 fL (8.0-11.0); Monocytes % 6.3; Neutrophils % 57.1; Nucleated RBC 0 %; Platelet Count 219 10^3/uL (130-400); RBC 4.66 10^6/uL (3.93-5.22); RDW-SD 38.5 fL; WBC 10.19 10^3/uL (4.4-10.8)
[2020-08-07 06:45] LABS: BUN 7 mg/dL (7-18); CREATININE 0.7 mg/dL (0.55-1.02); Calcium 7.9 mg/dL (8.5-10.1); Chloride 105 mmol/L (98-107); Glucose 194 mg/dL (74-106); Potassium 3.1 mmol/L (3.5-5.1); Sodium 140 mmol/L (136-145)
[2020-08-07] MEDS: Potassium Chloride 10 MEQ CAPCR 40 MEQ PO (08:02)
--- NOTE | 2020-08-07 08:18 | NUR.NOTE ---
Patient is set up with her breafast tray. Patient is quite hungry.Nursing Note:
--- NOTE | 2020-08-07 08:37 | PDOC.CMIN ---
- If Service Date Differs Date of service: 08/07/20 Time of Service: 08:37 Care Management Initial Assess REASON FOR HOSPITALIZATION:: Diabetes and hyponatremia PAST MEDICAL HISTORY/PAST SURGICAL HISTORY:: Medical History . Anxiety (05/27/17). Celiac disease (05/27/17). Depression (06/13/17). Hirsutism (05/27/17). Polycystic ovaries (08/16/12). Surgical History . Vaginal hysterectomy. 2012 Dr Allen PREVIOUS FUNCTIONAL STATUS/SOCIAL/FAMILY SUPPORTS:: Lisa lives in a single family home in [place] with her Dick and 2 daughters ages 18 and 14. 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 Lisa is independent at baseline and receives no services. CURRENT FUNCTIONAL STATUS:: Lisa was lying in bed when CM met with her. She was polite and agreeable to conversation. Lisa stated that her symptoms began within a day or two of receiving her second Covid vaccine and intensified over the next few days. She stated that she still has extremely blurry vision and has been suffering from excessive thirst and urination. Lisa reported that her blood sugar was over 700 when she came to the ED. When asked, Lisa shared that her father and maternal granmother both were diagnosed with diabetes later in life. Lisa also talked a bit about her family. She stated that her oldest daughter experienced some serious health issues when younger and now has 2 support animals which are sugar gliders. She described them as squirrel-like small marsupials which are very chatty and affectionate. Her younger daughter s a race care truck driver helper. ADVANCE DIRECTIVES:: none Has patient been provided with info about the portal/API?: Yes Did the patient sign up for the portal?: Yes (previously) CODE STATUS:: Full Code INSURANCE COVERAGE / FINANCIAL ISSUES:: [employer] CURRENT HOME/COMMUNITY SERVICES/EQUIPMENT:: none PRIMARY CARE PHYSICIAN:: Yvonne Ervin POTENTIAL DISCHARGE NEEDS:: Follow up with PCP and dischcarge plan of care PATIENT/FAMILY EDUCATION NEEDS:: Review of discharge instructions, medications, follow up plan, activity, Ask Me Three. TRANSPORTATION:: via private vehicle with family PLAN:: Lisa will likely be discharged home with no new services. She will follow up with her community providers and transport with family. She will also need diabetes education on an outpatient basis. CM will continue to support Lisa and her family and assess for discharge planning needs.
[2020-08-07] MEDS: metFORMIN 500 MG TAB 1000 MG PO ×2 (10:06→17:06)
[2020-08-07] MEDS: SITagliptin 100 MG TAB PO (10:07)
[2020-08-07] MEDS: Normal Saline Flush 10 ML SYR IVP ×3 (10:25→17:13)
--- NOTE | 2020-08-07 11:22 | NUR.NOTE ---
Global Coordinator meets with patient.Nursing Note:
--- NOTE | 2020-08-07 11:36 | PGE_ITS ---
Date of Service Date of service: 08/07/20 Time of Service: 11:36 Assessment and Plan Assessment and plan (1) Hyponatremia: Status: Acute Assessment and plan: Resolved. (2) Diabetes mellitus: Status: Chronic Assessment and plan: Insulin drip discontinued. Initiate glipizide and Januvia. Increase home glucophage to 1000mg BID. Attempt to control with oral medications and diet. A1c is 9.0. Appreciate natural resources extension educator consult Qualifiers: Diabetes mellitus type: type 2 Diabetes mellitus complication status: with hyperosmolarity (3) PCOS (polycystic ovarian syndrome): Status: Acute Assessment and plan: Cont spironolactone and glucophage Subjective Subjective Patient reports: afebrile; denies diarrhea, nausea, vomiting and shortness of breath Interval history since last seen: Feels like I'm hungover. Conts to have blurry vision. Exam Const General: cooperative and no acute distress Nutritional Appearance: obese Orientation: alert Eyes Sclera: sclerae normal Pupils: PERRL Resp Effort & Inspection: normal respiratory effort Auscultation: clear to auscultation bilaterally Cardio Rate: regular rate Rhythm: regular rhythm Heart Sounds: S1 normal and S2 normal GI Palpation: soft and nontender Neuro General: patient alert, patient oriented x3 and no focal motor deficits Cognition: normal cognition Speech: speech normal Extrem General: no pedal edema and no calf tenderness Objective Last Vital Signs Temp 36.5 C 08/07/20 10:14 Pulse 88 08/07/20 10:14 Resp 17 08/07/20 10:14 BP 126/81 08/07/20 10:14 Pulse Ox 98 08/07/20 10:14 Laboratory Results - last 24 hr 08/06/20 08/06/20 08/06/20 19:30 19:30 19:30 WBC 10.43 RBC 5.52 H Hgb 16.5 H Hct 48.4 H MCV 87.7 MCH 29.9 MCHC 34.1 RDW 12.0 Plt Count 247 MPV 11.1 H Immature Gran % 0.4 Neutrophils % 72.5 Lymphocytes % 18.6 Monocytes % 5.8 Eosinophils % 2.2 Basophils % 0.5 Nucleated RBC % 0 Absolute Neutrophils 7.56 H Absolute Lymphocytes 1.94 Absolute Monocytes 0.61 Absolute Eosinophils 0.23 Absolute Basophils 0.05 VBG pH VBG pCO2 VBG pO2 VBG HCO3 VBG Total CO2 VBG O2 Saturation VBG Base Excess Sodium 129 L Potassium 4.8 Chloride 92 L Carbon Dioxide 25.9 Anion Gap 11.1 H BUN 12 Creatinine 1.1 H Estimated GFR/1.73 m2 54.47 Glucose 718 H* Hemoglobin A1c Calcium 9.4 Phosphorus Magnesium Total Bilirubin 0.9 AST 30 ALT 51 Alkaline Phosphatase 113 Troponin I < 0.05 Total Protein 7.7 Albumin 4.1 Urine Color Urine Clarity Urine pH Ur Specific Condon Urine Protein Urine Ketones Urine Blood Urine Nitrite Urine Bilirubin Urine Urobilinogen Ur Leukocyte Esterase Urine Glucose COVID-19 Source SARS-CoV-2 (PCR) 08/06/20 08/06/20 08/06/20 19:49 20:16 21:00 WBC RBC Hgb Hct MCV MCH MCHC RDW Plt Count MPV Immature Gran % Neutrophils % Lymphocytes % Monocytes % Eosinophils % Basophils % Nucleated RBC % Absolute Neutrophils Absolute Lymphocytes Absolute Monocytes Absolute Eosinophils Absolute Basophils VBG pH 7.38 VBG pCO2 46 VBG pO2 41 VBG HCO3 27 VBG Total CO2 24 VBG O2 Saturation 76 VBG Base Excess 2 Sodium 133 L Potassium 4.5 Chloride 97 L Carbon Dioxide 27.7 Anion Gap 8.3 BUN 11 Creatinine 1.1 H Estimated GFR/1.73 m2 54.47 Glucose 547 H* D Hemoglobin A1c Calcium 8.7 Phosphorus Magnesium Total Bilirubin AST ALT Alkaline Phosphatase Troponin I Total Protein Albumin Urine Color Yellow Urine Clarity Clear Urine pH 6.0 Ur Specific Condon <= 1.005 Urine Protein Negative Urine Ketones 40 H Urine Blood Negative Urine Nitrite Negative Urine Bilirubin Negative Urine Urobilinogen 0.2 Ur Leukocyte Esterase Negative Urine Glucose 500 H COVID-19 Source SARS-CoV-2 (PCR) 08/06/20 08/06/20 08/06/20 21:00 22:30 23:10 WBC RBC Hgb Hct MCV MCH MCHC RDW Plt Count MPV Immature Gran % Neutrophils % Lymphocytes % Monocytes % Eosinophils % Basophils % Nucleated RBC % Absolute Neutrophils Absolute Lymphocytes Absolute Monocytes Absolute Eosinophils Absolute Basophils VBG pH VBG pCO2 VBG pO2 VBG HCO3 VBG Total CO2 VBG O2 Saturation VBG Base Excess Sodium Cancelled 134 L Potassium Cancelled 4.0 Chloride Cancelled 99 Carbon Dioxide Cancelled 24.3 Anion Gap Cancelled 10.7 BUN Cancelled 9 Creatinine Cancelled 0.9 Estimated GFR/1.73 m2 Cancelled >= 60.00 Glucose Cancelled 411 H D Hemoglobin A1c Calcium Cancelled 8.5 Phosphorus Magnesium Total Bilirubin AST ALT Alkaline Phosphatase Troponin I Total Protein Albumin Urine Color Urine Clarity Urine pH Ur Specific C[place] Urine Protein Urine Ketones Urine Blood Urine Nitrite Urine Bilirubin Urine Urobilinogen Ur Leukocyte Esterase Urine Glucose COVID-19 Source Nasal/nares SARS-CoV-2 (PCR) Negative 08/06/20 08/06/20 08/07/20 23:10 23:10 03:59 WBC RBC Hgb Hct MCV MCH MCHC RDW Plt Count MPV Immature Gran % Neutrophils % Lymphocytes % Monocytes % Eosinophils % Basophils % Nucleated RBC % Absolute Neutrophils Absolute Lymphocytes Absolute Monocytes Absolute Eosinophils Absolute Basophils VBG pH VBG pCO2 VBG pO2 VBG HCO3 VBG Total CO2 VBG O2 Saturation VBG Base Excess Sodium 137 Potassium 3.2 L Chloride 104 Carbon Dioxide 24.8 Anion Gap 8.2 BUN 8 Creatinine 0.7 Estimated GFR/1.73 m2 >= 60.00 Glucose 261 H D Hemoglobin A1c Calcium 8.0 L Phosphorus 2.4 L Magnesium 1.8 Total Bilirubin AST ALT Alkaline Phosphatase Troponin I Total Protein Albumin Urine Color Urine Clarity Urine pH Ur Specific [place] Urine Protein Urine Ketones Urine Blood Urine Nitrite Urine Bilirubin Urine Urobilinogen Ur Leukocyte Esterase Urine Glucose COVID-19 Source SARS-CoV-2 (PCR) 08/07/20 08/07/20 08/07/20 06:05 06:05 06:05 WBC 10.19 RBC 4.66 Hgb 14.0 D Hct 40.6 MCV 87.1 MCH 30.0 MCHC 34.5 RDW 12.0 Plt Count 219 MPV 10.9 Immature Gran % 0.3 Neutrophils % 57.1 Lymphocytes % 31.6 Monocytes % 6.3 Eosinophils % 4.3 Basophils % 0.4 Nucleated RBC % 0 Absolute Neutrophils 5.82 Absolute Lymphocytes 3.22 Absolute Monocytes 0.64 Absolute Eosinophils 0.44 Absolute Basophils 0.04 VBG pH VBG pCO2 VBG pO2 VBG HCO3 VBG Total CO2 VBG O2 Saturation VBG Base Excess Sodium 140 Potassium 3.1 L Chloride 105 Carbon Dioxide 26.0 Anion Gap 9.0 BUN 7 Creatinine 0.7 Estimated GFR/1.73 m2 >= 60.00 Glucose 194 H Hemoglobin A1c 9.0 H Calcium 7.9 L Phosphorus Magnesium Total Bilirubin AST ALT Alkaline Phosphatase Troponin I Total Protein Albumin Urine Color Urine Clarity Urine pH Ur Specific [place] Urine Protein Urine Ketones Urine Blood Urine Nitrite Urine Bilirubin Urine Urobilinogen Ur Leukocyte Esterase Urine Glucose COVID-19 Source SARS-CoV-2 (PCR)
--- NOTE | 2020-08-07 11:39 | W.INDIABCONS ---
Date of service: 08/07/20 Time of Service: 11:39 Diabetes Inpatient Consult DESCRIPTION/ASSESSMENT: 40 year old female admitted with hyperglycemia with BS of 700 mg/dl in ER. PMH: morid obesity, PCOS with Hirsutism, celiac disease. Meds: lantus, novolog for coverage Lisa reports that she has mostly had low blood sugars in past. Has been taking metformin daily for PCOS and checks blood sugars regularly at home. Denies any blood sugars above 200 mg/dl in last month. A1c: 9% indicates elevated blood sugars for last 2 months > 180 mg/dl. Following diabetic gluten free diet with excellent intake. Discussed with Lisa benefits of starting a continuous glucose monitor when discharges and to follow up 14 days later for glycemic pattern analysis. Lisa is interested in CGM, will place prior to discharge. INTERVENTION: Provided education on DM including Hyper/hypoglycemia s/s with action plan for each scenario. Definition and types of CHO with examples, CHO counting, DASH diet materials, DM meal planning and label reading literature. Provided a blood sugar and food record chart and materials to reiterate CHO counting techniques. Reviewed desirable BG levels with patient with food choices and portions for optimal outcomes. Provided contact information for this RD and encouraged to call with any f/u questions r/t to DM self management. CDM from kitchen has been helping to count CHO's and achieve intake of ~65g/CHO per meal period. PLAN: Will place Bonny 2 CGM prior to discharge and set up outpatient diabetes education session within 10 days of discharge continue current diet. Time Spent in Nutritional Counseling and Treatment: 15
[2020-08-07] MEDS: Insulin Aspart 300 UNITS/3 ML PEN SC ×2 (11:40→17:07)
--- NOTE | 2020-08-07 11:48 | NUR.NOTE ---
RN sends [facility] message to Dr. Barnes advising him that patient's blood sugar was 316 and that RN gave patient 5 units of Aspart insulin.
--- NOTE | 2020-08-07 11:55 | NUR.NOTE ---
clinical marketing manager meets with patient. Patient in good spirits.Nursing Note:
--- NOTE | 2020-08-07 12:08 | NUTRITION ---
Patient is set up with her dinner tray. Patient's appetite is quite good.
[2020-08-07 16:42] LABS: Osmolality Serum 306 mOsm/kg (275-295)
--- NOTE | 2020-08-07 17:33 | PHA.REVIEW ---
Pharmacy Admission Review - Admission Clinical Review (Last Reviewed 08/06/20 @ 19:51 by Misael Smith MD) Hyponatremia (Acute) PCOS (polycystic ovarian syndrome) (Acute 05/27/17) cefdinir [From Omnicef] Allergy (Severe, Verified 08/06/20 18:52) very bloody stools celecoxib [From Celebrex] Allergy (Severe, Verified 08/06/20 18:52) racing heart,SOB influenza A (H1N1) virus vaccine m-guero-split 2008 [From influenza A (H1N1)] Allergy (Severe, Verified 08/06/20 18:52) pain in the whole left side of her body. latex Allergy (Unknown, Verified 08/06/20 18:52) venom-honey bee Allergy (Verified 08/06/20 18:52) Anaphylaxsis amoxicillin [From Augmentin] Adverse Reaction (Verified 08/06/20 18:52) Skin Rash clavulanic acid [From Augmentin] Adverse Reaction (Verified 08/06/20 18:52) Skin Rash TREE NUTS Allergy (Severe, Uncoded 08/06/20 18:52) Height 5 ft 5 in Weight 117.2 kg - Renal Dosing Renal Dosing: BUN 7 mg/dL (7-18) 08/07/20 06:05 Creatinine 0.7 mg/dL (0.55-1.02) 08/07/20 06:05 Medications needing adjustments: Reviewed - Anticoagulation Anticoagulation: Hgb 14.0 g/dL (11.2-15.7) D 08/07/20 06:05 Hct 40.6 % (36.0-46.0) 08/07/20 06:05 Plt Count 219 10^3/uL (130-400) 08/07/20 06:05 Creatinine 0.7 mg/dL (0.55-1.02) 08/07/20 06:05 DVT Prohphylaxis: Reviewed Medications: Enoxaparin - Opiate Usage Evaluate Pain Scale/Pains Meds: N/A - Relevant Labs Sodium 140 mmol/L (136-145) 08/07/20 06:05 Potassium 3.1 mmol/L (3.5-5.1) L 08/07/20 06:05 Chloride 105 mmol/L (98-107) 08/07/20 06:05 Phosphorus 2.4 mg/dL (2.6-4.7) L 08/06/20 23:10 Magnesium 1.8 mg/dL (1.8-2.4) 08/06/20 23:10 Electrolytes, C-Reactive P, ESR: Reviewed (potassium being repleted orally) - DM Control DM Control: Glucose 194 mg/dL (74-106) H 08/07/20 06:05 Hemoglobin A1c 9.0 % (<5.7) H 08/07/20 06:05 Finger Stick Blood Glucose 335 Finger Stick Blood Glucose 335 Finger Stick Blood Glucose 335 Finger Stick Blood Glucose 288 Finger Stick Blood Glucose 288 Finger Stick Blood Glucose 288 Finger Stick Blood Glucose 340 Finger Stick Blood Glucose 340 Finger Stick Blood Glucose 340 Finger Stick Blood Glucose 316 Finger Stick Blood Glucose 316 Finger Stick Blood Glucose 316 Insulin Dosing: Reviewed (insulin drop stopped, oral agents increased/added, aspart per SS added and lantus was ultimately added given high BS despite multiple ODAs and aspart) - Heart Failure/TN Heart Failure/TN: Troponin I < 0.05 ng/mL (<0.06) 08/06/20 19:30 EF%, TORIBIO's, B-Blockers, Diuretics: Reviewed - BP Control BP Control: Blood Pressure [Right Radial 119/85 Artery] Blood Pressure [Right Radial 123/84 Artery] Blood Pressure 119/85 Blood Pressure 119/85 Blood Pressure 119/85 Blood Pressure 119/85 Blood Pressure 121/83 Blood Pressure 119/74 Blood Pressure 119/74 Blood Pressure 113/85 Blood Pressure 116/86 Blood Pressure 126/81 Blood Pressure 126/81 Blood Pressure 126/82 Blood Pressure 119/80 Blood Pressure 123/85 Blood Pressure 123/84 Blood Pressure 123/84 Blood Pressure 107/75 If elevated: Reviewed - Qtc Review If Elevated: N/A - IV to PO Switch IV Medications: Reviewed - Home Meds Relevent Home Meds Not ordered & why?: sumatriptan (prn, hasn't filled in awhile), flovent - asmanex form alt was ordered but dc'd - Current meds Current Medication Order Review: Reviewed
[2020-08-07] MEDS: Potassium Chloride 20 MEQ TABCR PO (20:12)
[2020-08-07] MEDS: Insulin Aspart 100 UNITS/ML UNIT 6 UNITS SC (21:29)
[2020-08-07] MEDS: Insulin Glargine 300 UNITS/3 ML PEN 20 UNITS SC (21:31)
[2020-08-08] VITALS (23 sets, daily range): BP systolic 105–139; BP diastolic 73–87; PULSE 76–115; RESP 9–24; TEMP 36.3–36.9; O2SAT 93–97
--- NOTE | 2020-08-08 04:47 | NUR.NOTE ---
0100- pt heart rates while lying in bed were 80's and 90's. Pt got oob to go to the commode and heart rate noted to be 131. sinus tach. went back to 90 after getting back in bed
[2020-08-08 06:43] LABS: Anion Gap 8.5 mmol/L (3-11); BUN 7 mg/dL (7-18); CO2 24.5 mmol/L (21.0-32.0); CREATININE 0.7 mg/dL (0.55-1.02); Calcium 7.9 mg/dL (8.5-10.1); Chloride 105 mmol/L (98-107); Glucose 276 mg/dL (74-106); Sodium 138 mmol/L (136-145)
[2020-08-08] MEDS: metFORMIN 500 MG TAB 1000 MG PO ×2 (08:01→17:09)
[2020-08-08] MEDS: Potassium Chloride 20 MEQ TABCR PO ×2 (08:01→19:58)
[2020-08-08] MEDS: Spironolactone 50 MG TAB PO (08:01)
--- NOTE | 2020-08-08 09:13 | PDOC.CMPRO ---
- If Service Date Differs Date of service: 08/08/20 Time of Service: 09:13 Care Management Progress Note S/O: Lisa was sitting up in a chair next to the window when CM met with her. She was attempting to read something without a lot of success. Lisa explained that she still cannot see clearly and was hoping the bright light would help. She shared that the providers have told her that her vision will clear but that it will take time and that it is the result of swelling from the high blood sugars. Lisa again talked a lot about her children. She informed CM that her youngest daughter, Jovana, won first place in the children's division at their race track in [place], [place] last year. This year she will be competing with adults even though she is only 14. Lisa is very proud of her and of her older daughter who is very active in the mojio. Lisa discussed the fact that she will be getting a continuous glucose monitor. She will be meeting with the independent insurance adjuster later today for education and to have the monitor applied. A: Lisa is a 40 year old woman admitted on 08/06/20 with Diabetes P:Lisa will likely be discharged home with no new services. She will follow up with her community providers and transport with family. She will also need diabetes education on an outpatient basis. CM will continue to support Lisa and her family and assess for discharge planning needs.
--- NOTE | 2020-08-08 10:49 | CHAPLAIN ---
I had a brief visit with Lisa. She's worried about her vision, other than that she was not interested in a longer visit.
--- NOTE | 2020-08-08 11:31 | W.PM.PROGNOT ---
Date of Service Date of service: 08/08/20 Time of Service: 11:31 Assessment and Plan Assessment and plan (1) Diabetes mellitus: Status: Chronic Assessment and plan: Continue metformin 1000mg BID; was on 500mg BID at time of admission; taken for PCOS Basal/bolus insulin. Monitor and adjust dosage as needed. Diabetic education. Diabetic diet. Ongoing blurry vision that will likely resolved after glucose stabilized. Qualifiers: Diabetes mellitus type: type 2 Diabetes mellitus complication status: with hyperosmolarity Diabetes mellitus long chain dyeing machine operator insulin use: without long chain dyeing machine operator use (2) PCOS (polycystic ovarian syndrome): Status: Acute Assessment and plan: Cont metformin (now at a higher dose d/t new onset DM) and spironolactone Subjective Subjective Patient reports: no new complaints and afebrile; denies diarrhea, nausea, vomiting and shortness of breath Interval history since last seen: Ongoing blurry vision. Exam Const General: cooperative and no acute distress Orientation: alert and oriented x3 Eyes Sclera: sclerae normal Pupils: PERRL Resp Effort & Inspection: normal respiratory effort Auscultation: clear to auscultation bilaterally Cardio Rate: regular rate Rhythm: regular rhythm Heart Sounds: S1 normal and S2 normal Extrem General: no pedal edema and no calf tenderness Objective Last Vital Signs Temp 36.4 C L 08/08/20 09:42 Pulse 100 H 08/08/20 09:42 Resp 18 08/08/20 09:42 BP 117/87 08/08/20 09:42 Pulse Ox 96 08/08/20 09:42 Laboratory Results - last 24 hr 08/06/20 08/08/20 19:30 06:10 Sodium 138 Potassium 4.0 D Chloride 105 Carbon Dioxide 24.5 Anion Gap 8.5 BUN 7 Creatinine 0.7 Estimated GFR/1.73 m2 >= 60.00 Glucose 276 H Serum Osmolality 306 H Calcium 7.9 L
[2020-08-08] MEDS: Diclofenac 1% Gel 100 GM TUBE TP ×3 (11:59→19:58)
[2020-08-08] MEDS: Insulin Aspart 300 UNITS/3 ML PEN SC ×3 (12:00→17:11)
--- NOTE | 2020-08-08 13:53 | W.DIABETESNO ---
Date of service: 08/08/20 Time of Service: 13:53 Diabetes Note NOTE: Met with Lisa again to review carb counting and provided additional meal plans. After consent, placed Bonny 2 continuous glucose monitor and made follow up appt. 08/19/20 at 2 pm for data analysis in outpatient office. Will continue to follow and support. Time Spent in Nutritional Counseling and Treatment: 20 min
--- NOTE | 2020-08-08 15:38 | W.DIABETESNO ---
Date of service: 08/08/20 Time of Service: 15:38 Diabetes Note NOTE: Addendum: initial Bonny 2 sensor malfunctioned. Placed second sensor on Lisa. Follow up prn. Time Spent in Nutritional Counseling and Treatment: 5
[2020-08-08] MEDS: Insulin Aspart 300 UNITS/3 ML PEN 15 UNITS SC (17:10)
[2020-08-08] MEDS: Normal Saline Flush 10 ML SYR IVP (20:00)
[2020-08-08] MEDS: Insulin Glargine 300 UNITS/3 ML PEN 25 UNITS SC (21:34)
[2020-08-08] MEDS: Magnesium Oxide 400 MG TAB PO (21:34)
[2020-08-08] MEDS: Enoxaparin 40 MG/0.4 ML SYR SC (21:34)
[2020-08-08] MEDS: Acetaminophen 325 MG TAB 650 MG PO (23:55)
[2020-08-09 03:30] VITALS: BP 135/77; PULSE 99; RESP 18; TEMP 36.4; O2SAT 96
[2020-08-09 07:25] LABS: Platelet Count 180 10^3/uL (130-400)
[2020-08-09 07:30] LABS: Anion Gap 9.5 mmol/L (3-11); BUN 7 mg/dL (7-18); CO2 23.5 mmol/L (21.0-32.0); CREATININE 0.7 mg/dL (0.55-1.02); Calcium 8.1 mg/dL (8.5-10.1); Chloride 105 mmol/L (98-107); Glucose 262 mg/dL (74-106); Potassium 4.1 mmol/L (3.5-5.1); Sodium 138 mmol/L (136-145)
[2020-08-09 07:47] VITALS: BP 114/77; PULSE 85; RESP 18; TEMP 36.9; O2SAT 97
[2020-08-09 07:50] LABS: Magnesium 1.8 mg/dL (1.8-2.4)
[2020-08-09] MEDS: metFORMIN 500 MG TAB 1000 MG PO ×2 (08:02→17:16)
[2020-08-09] MEDS: Spironolactone 50 MG TAB PO (08:02)
[2020-08-09] MEDS: Potassium Chloride 20 MEQ TABCR PO ×2 (08:03→20:34)
[2020-08-09] MEDS: Insulin Aspart 300 UNITS/3 ML PEN SC ×2 (08:04→12:02)
[2020-08-09] MEDS: Insulin Aspart 300 UNITS/3 ML PEN 15 UNITS SC ×3 (08:04→17:14)
[2020-08-09] MEDS: Diclofenac 1% Gel 100 GM TUBE TP ×3 (08:08→20:34)
[2020-08-09] MEDS: Ondansetron 4 MG/2 ML VIAL IVP (09:20)
[2020-08-09] MEDS: Normal Saline Flush 10 ML SYR IVP ×2 (09:20→11:50)
--- NOTE | 2020-08-09 10:20 | PDOC.CMPRO ---
- If Service Date Differs Date of service: 08/09/20 Time of Service: 10:20 Care Management Progress Note S/O: Lisa is standing by the window when CM comes to meet with her. She is holding an emesis bag in one hand and putting on deodorant with the other. Lisa reports she is feeling nauseated this morning and has already filled one emesis bag. She states she is looking forward to returning home and misses her bed, but she does not feel quite ready for discharge yet. She also shares her vision remains blurry, but says she has been told by providers that her eyesight will clear up with time. Lisa says she would like to color to help pass the time, but she's not sure she'll be able to see the pages well enough to color them. CM provides her with an adult coloring book and crayons to use when she feels ready. A: Lisa is a 40 year old woman admitted on 08/06/20 with Diabetes. P: No change in plan. Anticipate Lisa will be discharged home with no new services when medically cleared by provider. She will follow up with her community providers and transport with family. She will also need diabetes education on an outpatient basis. CM will continue to support Lisa and her family and assess for discharge planning needs.
[2020-08-09 11:05] VITALS: BP 128/89; PULSE 100; RESP 17; TEMP 36.9; O2SAT 95
[2020-08-09] MEDS: Pantoprazole 40 MG VIAL IVP (11:50)
--- NOTE | 2020-08-09 12:11 | PGE_ITS ---
Date of Service Date of service: 08/09/20 Time of Service: 12:11 Assessment and Plan Assessment and plan (1) Diabetes mellitus: Status: Chronic Assessment and plan: Continue metformin 1000 mg BID - though consider decreasing dose if GI sx return. Uptitrate long acting insulin. Referral to [facility] endocrine and ophthalmology sent. Diabetic education is following. Received teaching re insulin. Continue Diabetic diet. Ongoing blurry vision unchanged, likely due to osmolality shifts from hyperglycemia, but does need to see ophthalmology - referral sent. Qualifiers: Diabetes mellitus type: type 2 Diabetes mellitus terminologist insulin use: without intermediate use Diabetes mellitus complication status: with hyperosmolarity (2) Nausea and vomiting: Status: Acute Assessment and plan: ?due to increased dose of metformin. Continue metformin for now and monitor how the patient tolerates the diet. (3) Blurred vision, bilateral: Status: Acute Assessment and plan: As above Denies floaters or the curtain sign. (4) PCOS (polycystic ovarian syndrome): Status: Acute Assessment and plan: Continue metformin and spironolactone. Refer to [facility] endocrinology. (5) Obesity, morbid, BMI 40.0-49.9: Status: Chronic Assessment and plan: Refer to [facility] endocrine for medication-assisted weight loss as the patient describes not being able to lose weight despite multiple attempts. (6) DVT prophylaxis: Status: Acute Assessment and plan: Sc lovenox (7) Discharge planning issues: Status: Acute Assessment and plan: Full code Continues to require hospitalization; anticipate discharge home tomorrow. Subjective Subjective Interval history since last seen: Ms Ramos had a headache, nausea, and vomitin g this morning, but states this did not feel like her usual migraine. She denies dizziness, chest pain, shortness of breath. Continues to report blurred vision. Her nausea has now resolved. She has just had a normal BM. She endorses a little bit of blood on TP when wiping, but no blood in stool otherwise. She does not know what her emetic contents look like. She does not have the sensation of food sometimes just sitting in her stomach, and this vomiting was unusual for her. Exam Narrative Exam Narrative: General: Pleasant, obese female, A&Ox3, does not appear to be in acute distress HEENT: EOMI, MMM Heart: RRR, no m/r/g Lungs: CTAB Abdomen: soft, nontender, nondistended; painful area RLQ at the site of injection - no induration or hematoma Extremities: trace edema BLE's Objective Last Vital Signs Temp 36.9 C 08/09/20 11:05 Pulse 100 H 08/09/20 11:05 Resp 17 08/09/20 11:05 BP 128/89 08/09/20 11:05 Pulse Ox 95 08/09/20 11:05 Laboratory Results - last 24 hr 08/09/20 08/09/20 08/09/20 07:10 07:10 07:10 Plt Count 180 Sodium 138 Potassium 4.1 Chloride 105 Carbon Dioxide 23.5 Anion Gap 9.5 BUN 7 Creatinine 0.7 Estimated GFR/1.73 m2 >= 60.00 Glucose 262 H Calcium 8.1 L Magnesium 1.8
[2020-08-09 14:55] VITALS: BP 141/75; PULSE 101; RESP 18; TEMP 36.9; O2SAT 97
[2020-08-09 19:15] VITALS: BP 122/84; PULSE 98; RESP 17; TEMP 37; O2SAT 97
[2020-08-09] MEDS: Magnesium Oxide 400 MG TAB PO (21:36)
[2020-08-09] MEDS: Insulin Glargine 300 UNITS/3 ML PEN 30 UNITS SC (21:37)
[2020-08-09 23:25] VITALS: BP 126/82; PULSE 88; RESP 18; TEMP 36.5; O2SAT 98
[2020-08-10 02:03] VITALS: BP 136/76; PULSE 94; RESP 18; TEMP 36.7; O2SAT 97
[2020-08-10] MEDS: Acetaminophen 325 MG TAB 650 MG PO (02:05)
[2020-08-10 06:00] VITALS: BP 108/71; PULSE 85; RESP 16; TEMP 36.6; O2SAT 98
[2020-08-10 07:33] LABS: BUN 9 mg/dL (7-18); CREATININE 0.7 mg/dL (0.55-1.02); Calcium 8.4 mg/dL (8.5-10.1); Chloride 107 mmol/L (98-107); Glucose 202 mg/dL (74-106); Magnesium 1.7 mg/dL (1.8-2.4); Potassium 3.9 mmol/L (3.5-5.1); Sodium 140 mmol/L (136-145)
[2020-08-10 07:54] VITALS: BP 127/82; PULSE 102; RESP 17; TEMP 36.5; O2SAT 96
[2020-08-10] MEDS: metFORMIN 500 MG TAB 1000 MG PO (08:00)
[2020-08-10] MEDS: Spironolactone 50 MG TAB PO (08:00)
[2020-08-10] MEDS: Potassium Chloride 20 MEQ TABCR PO (08:00)
[2020-08-10] MEDS: Normal Saline Flush 10 ML SYR IVP (08:01)
[2020-08-10] MEDS: Pantoprazole 40 MG VIAL IVP (08:01)
[2020-08-10] MEDS: Insulin Aspart 300 UNITS/3 ML PEN 15 UNITS SC ×2 (08:02→11:48)
[2020-08-10] MEDS: Insulin Aspart 300 UNITS/3 ML PEN SC ×2 (08:02→11:49)
[2020-08-10] MEDS: Diclofenac 1% Gel 100 GM TUBE TP ×2 (08:04→11:48)
[2020-08-10] MEDS: Magnesium Oxide 400 MG TAB PO (09:09)
--- NOTE | 2020-08-10 09:25 | DSE_ITS ---
Date of service: 08/10/20 Time of Service: 12:36 DS: Diagnosis Discharge Diagnosis (1) Hyperosmolar hyperglycemic state (HHS): Status: Resolved (2) Newly diagnosed diabetes: Status: Acute Asessment and Plan: A1C 9.0 (3) Blurred vision, bilateral: Status: Acute Asessment and Plan: In setting of hyperglycemia (4) Nausea and vomiting: Status: Resolved (5) Hypokalemia: Status: Resolved (6) Hypomagnesemia: Status: Acute (7) Musculoskeletal pain, chronic: Status: Chronic (8) GERD (gastroesophageal reflux disease): Status: Chronic (9) Obesity, morbid, BMI 40.0-49.9: Status: Chronic (10) PCOS (polycystic ovarian syndrome): Status: Acute (11) COVID-19 ruled out by laboratory testing: Status: Acute Discharge Plan Disposition Patient Disposition: HOME Condition: Improving Discharge Details Reason For Visit: HHNK Admit Date/Time: 08/06/20 21:09 Admit Provider: Quique Almeida Attending Provider: Quique Almeida Primary Care Provider: Yvonne Ervin Hospital Course Hospital Course: Ms Ramos is a 40 year old female with PMHx of PCOS on metformin, obesity with BMI of 42, anxiety and depression, and musculoskeletal pains, who was a patient on [facility] hospitalist service from 08/06/20 until 08/10/2020 for new diagnosis of diabetes having presented with hyperglycemia and hyperosmolar state with BG of 718, requiring an admission to the ICU for insulin drip therapy. She did have evidence of mild ketosis, but never had an elevated anion gap. She was transitioned to basal bolus insulin and transferred out of the ICU on 08/08/2020. She met with diabetes education and received information on both how to inject insulin and carb counting. She was set up with a Bonny 2 CGM (one was actually placed on the patient and a meter given). The patient is being discharged home today on metformin 1000 mg PO BID, lantus 35 units QHS, novolog (or humalog, depending on insurance coverage) 15 units AC. The patient is not going home on carb counting because she did not learn to carb count at our facility, but if she is interested in this, she should follow up with nutrition. Her current target is 65 grams of carbs per meal. She is being discharged home with a referral to [facility] endocrinology (she has had difficulty losing weight, has PCOS, and now a new diagnosis of DM). She is also being referred to [facility] ophthalmology. Prescription coverage was verified with pharmacy and patient verbalized that she can afford these medications. Care for patient as well as completion of her discharge summary on day of discharge took 45 minutes. Home Meds and New Rx's Prescriptions: New diclofenac sodium 1 % Gel 4 g topical QID PRN (Reason: prn pain) Qty: 100 RF: 0 insulin aspart U-100 [Novolog Flexpen U-100 Insulin] 100 unit/mL (3 mL) Insulin Pen 15 unit subcut AC Qty: 15 RF: 0 Lantus Solostar U-100 Insulin 100 unit/mL (3 mL) Insulin Pen 35 unit subcut HS Qty: 15 RF: 0 magnesium oxide 400 mg (241.3 mg magnesium) Tablet 400 mg PO BID Qty: 60 RF: 0 potassium chloride [Klor-Con M20] 20 mEq Tablet,Er Particles/Crystals 20 meq PO BID Qty: 60 RF: 0 metformin 1,000 mg tablet 1,000 mg PO BID Qty: 60 RF: 0 omeprazole 20 mg capsule,delayed release(DR/EC) 20 mg PO DAILY Qty: 30 RF: 0 miconazole nitrate [Miconazole 7] 2 % cream 1 appful vaginal QHS 7 Days RF: 0 (DME) lancets [Lancets,Ultra Thin] Misc See Rx Instructions .ROUTE .MEDSUPPLY Qty: 200 RF: 0 (DME) FreeStyle Precision Michael Strips Strip See Rx Instructions .ROUTE .MEDSUPPLY Qty: 150 RF: 0 (DME) FreeStyle Bonny 2 Sensor Kit See Rx Instructions .ROUTE .MEDSUPPLY Qty: 4 RF: 11 Continued albuterol sulfate 90 mcg/actuation HFA aerosol inhaler 2 puff IH Q6H PRNRF: 0 estradiol [Vagifem] 10 mcg tablet 10 mcg vaginal DAILY 14 Days Qty: 24 RF: 4 cetirizine [Zyrtec] 10 MG tablet,chewable 10 mg PO DAILY RF: 0 diphenhydramine HCl [Benadryl Allergy] 25 MG tablet 25 mg PO Q4H PRN RF: 0 spironolactone 50 mg tablet 50 mg PO DAILY Qty: 90 RF: 3 sumatriptan succinate 100 MG tablet 100 mg PO DAILY PRNRF: 0 cyclobenzaprine 10 mg tablet 10 mg PO TID Qty: 14 RF: 0 Flovent HFA 110 mcg/actuation HFA aerosol inhaler 2 puff INHALATION BID RF: 0 Discontinued metformin [Glucophage] 500 mg tablet 500 mg PO Q12H Qty: 180 RF: 3 Discharge Instructions Instructions: Insulin Glargine (By injection), Insulin Lispro (By injection), Hypoglycemia in a Person with Diabetes (DC), Type 2 Diabetes in Adults: New Diagnosis (GEN), Basic Carbohydrate Counting (DC), Hyperosmolar Hyperglycemic State (DC), Diabetes and Nutrition (DC), Diabetes and Exercise (DC) Additional Instructions: Target for your current doses of insulin is 65 grams of carbs per meal 3 x/day. Know signs and symptoms of hypoglycemia and always carry something with you (sukhdev pouch, glucose tablets) in case you have symptoms of hypoglycemia. Make sure you have a back up meter and strips if you do not get strips for your CGM glucometer. Follow up with Diabetes education, PCP, Endocrinology and ophthalmology. Return to the hospital with any fever, bleeding, chest pain, or shortness of breath. Referrals: ENDOCRINOLOGY,[facility] [OTHER] - (New dx of DM, being started on insulin (A1C 9.0), h/o PCOS, obesity with BMI 42 and difficulty losing weight. they will call you with an appt) [facility] - ([facility] ophthalmology referral New dx of DM; blurred vision. They will call you with an appt) Caitie Dallas [BLOCK MECHANIC] - 08/19/20 2:00 pm (Diabetes education; follow up hospital discharge.) Yvonne Ervin [Primary Care Provider] - (Call tomorrow morning to make an appt with PCP- 1 to 2 weeks) Activity:: Activity as Tolerated Equipment/Supplies:: Bonny 2 glucometer Diet:: Carb Counting Discharge Orders Discharge Orders: Discharge Order (Routine); Ordered 08/10/20 Ordered By: Marylu Mclaughlin Other Ambulatory Orders: Basic Metabolic Panel (Routine) Timeframe: 20200818 Facility: [facility] - Location: Laboratory Outpatient Ordered By: Marylu Mclaughlin Magnesium (Routine) Timeframe: 20200818 Facility: [facility] - Location: Laboratory Outpatient Ordered By: Marylu Mclaughlin DS: Summary Time Spent with Patient providing and/or coordinating discharge services: Greater than 30 minutes Status at Discharge Functional status at discharge: independent ambulation Overall status at discharge: patient is progressing back to baseline Mental Status: mental status grossly normal Speech and Movement: speech and movement normal Mood: congruent mood Affect: normal affect Exam Narrative Exam Narrative: General: Pleasant, obese female, A&Ox3, does not appear to be in acute distress, anxious HEENT: EOMI, MMM Heart: RRR, no m/r/g Lungs: CTAB Abdomen: soft, nontender, nondistended; painful area RLQ at the site of injection - no induration or hematoma Extremities: trace edema BLE's Psych Mental Status: mental status grossly normal Speech and Movement: speech and movement normal Mood: congruent mood Affect: normal affect DS: Data Vitals/I&O Vitals and I&O: Vital Signs Temperature 36.5 C 08/10/20 07:54 Temperature Source Tympanic 08/10/20 07:54 Pulse 102 H 08/10/20 07:54 Pulse Rhythm Regular 08/10/20 02:55 Pulse 82 08/08/20 06:01 Respiratory Rate 17 08/10/20 07:54 Respiratory Effort Non-Labored 08/10/20 02:55 Respiratory Depth Normal 08/10/20 02:55 Respiratory Pattern Normal 08/10/20 02:55 Blood Pressure 127/82 08/10/20 07:54 Blood Pressure Mean 89 08/08/20 07:51 Blood Pressure Position Supine 08/08/20 07:51 Pulse Oximetry 96 08/10/20 07:54 Oxygen Delivery Method Room Air 08/10/20 07:54 Oxygen Flow Rate 0 08/10/20 07:54 Pain Level 4 08/10/20 07:54 Intake & Output 08/09/20 08/09/20 08/10/20 11:59 23:59 11:59 Intake Total 300 / 1220 920 / 1220 510 / 510 Output Total 1425 / 1675 250 / 1675 750 / 750 Balance -1125 / -455 670 / -455 -240 / -240 Intake: IV Oral 300 / 1210 910 / 1210 500 / 500 Output: Urine 1425 / 1675 250 / 1675 750 / 750 Other: Urine Color Yellow Light Ca Yellow Urine Appearance Cloudy Clear Cloudy Urine Odor None Normal Normal Comment pT claims to have voided, no urine to asses. Stool Size Large Stool Characteristics Soft Formed Voiding Methods Toilet Toilet Toilet Data Completed and Pending Completed studies during hospitalization [Text1]: CT head w/o contrast: Normal cranial CT. Labs on day of discharge: Labs from last 24 hours 08/10/20 06:15 Sodium 140 Potassium 3.9 Chloride 107 Carbon Dioxide 25.0 Anion Gap 8.0 BUN 9 Creatinine 0.7 Estimated GFR/1.73 m2 >= 60.00 Glucose 202 H Calcium 8.4 L Magnesium 1.7 L PFSH Medical History (Updated 08/10/20 @ 12:43 by Marylu Mclaughlin MD) Anxiety (05/27/17) Celiac disease (05/27/17) Depression (06/13/17) Hirsutism (05/27/17) Musculoskeletal pain, chronic Polycystic ovaries (08/16/12) Surgical History Vaginal hysterectomy 2012 Dr Allen Family History Mother Liver cancer at 58 Stroke Uterine cancer Father Diabetes Paternal Aunt Breast cancer Social History Smoking/Tobacco Use Status: Never Smoking risk assessment performed?: Yes Drug use: Never Current gender identity: female Do you feel safe in your relationship?: Yes Female Reproductive History Menstrual Menopause type: surgical History History 4 Para 2 Hx # Term Pregnancies Multiple births Hx # Pregnancies Ectopic pregnancies AB induced Hx Number of Living Children AB spontaneous
[2020-08-10] MEDS: Albuterol HFA 8 GM 60 PUFF INH IH (09:40)
[2020-08-10 11:45] VITALS: BP 126/80; PULSE 109; RESP 19; TEMP 36.4; O2SAT 97
--- NOTE | 2020-08-10 12:03 | PDOC.CMDIS ---
- If Service Date Differs Date of service: 08/10/20 Time of Service: 12:03 LACE Index Scoring Tool - Questions: Length of Stay (in days): 4 - 6 Acuity (Admit via E.D.?): Yes Comorbidities: Diabetes w/o Complication E.D. Visits: 1 - Answers: Total Score: 9 Risk of Readmission: Low Risk Care Management Discharge Reason for Hospitalization: Diabetes and hyponatremia Discharge Plan: Lisa is discharged home. She will follow up with her PCP, inclusion special educator, and follow up plan of care as directed. She is being transported home by family via private vehicle. Patient/Family Education Needs: Review discharge instructions regarding medications and follow up plan of care, and discuss Ask Me Three and self management.
[2020-08-10 14:39] LABS: Bilirubin Negative (Negative); Blood Negative (Negative); Clarity Clear (Clear); Glucose 100 mg/dL (Negative); Ketones Trace mg/dL (Negative); Leukocyte Esterase Trace (Negative); Nitrite Negative (Negative); Specific Gravity >= 1.030 (1.005-1.025); Urobilinogen 0.2 EU/dL (Up TO 0.2); pH 5.5 (5-8)
[2020-08-10 14:49] LABS: Bacteria Few HPF (Negative); C & S Indicated? No/Sq. Contamination; Casts Negative LPF (Negative); Crystals Negative HPF (Negative); Epithelial Cells Moderate HPF (Negative); Mucus Negative (Negative); RBC Negative HPF (0-2)
[2020-08-10 15:07] VITALS: BP 105/69; PULSE 59; RESP 18; TEMP 36.3; O2SAT 99
--- NOTE | 2020-08-10 18:03 | NUR.NOTE ---
Nursing Note: 08/10/20 18:03 Patient called stating she was unable to get insulin pens at the pharmacy. Charge nurse, Suad, was made aware and tried calling the pharmacy ([facility] in [place]), and the pharmacy was closed. Per Suad's suggestion, the patient came to the emergency department entrance and was given 6 needles to use until action can be taken tomorrow to fill an order for needles. This RN brought the needles to the emergency room, and the patient reported to this RN that Dr. Mclaughlin verbally told her prior to discharge to hold the 15 units of insulin ordered with meals if her fingerstick was below a certain parameter. The patient could not remember what this parameter was. This was not in the patient's discharge instructions. This RN instructed patient to hold 15 units of insulin because patient reports her fingerstick was 120. Charge nurse, Suad, was notified and agreed. This RN encouraged patient to recheck fingerstick before bed and to call us with any questions or concerns.
== END 2020-08-10 15:32 | disposition home or self-care (01) | DRG 638 ==
LOC: ER 21:29 → ICU 08-07 08:59 → MS 08-08 09:52
PROVIDERS: Family Medicine; Internal Medicine; Admitting Provider Family Medicine; Emergency Provider Student in an Organized Health Care Education/Training Program; PCP Nurse Practitioner; Visit Provider Family Medicine
DX: E87.1 Hypo-osmolality and hyponatremia; Z68.41 Body mass index [BMI] 40.0-44.9, adult; E11.00 Type 2 diabetes mellitus with hyperosmolarity without nonketotic hyperglycemic-hyperosmolar coma (NKHHC); E28.2 Polycystic ovarian syndrome; K90.0 Celiac disease; F41.9 Anxiety disorder, unspecified; F32.9 Major depressive disorder, single episode, unspecified; Z20.822 Contact with and (suspected) exposure to COVID-19; H53.8 Other visual disturbances; R11.2 Nausea with vomiting, unspecified; E66.01 Morbid (severe) obesity due to excess calories; E87.6 Hypokalemia; E83.42 Hypomagnesemia; G89.29 Other chronic pain; K21.9 Gastro-esophageal reflux disease without esophagitis
CPT/HCPCS: 36415; 36416; 80048; 80053; 81025; 82805; 82962; 87635; 94640; 96361; 96365; 96366; 96368; 99291; J1650; 70450; 81003; 81015; 83036; 83735; 83930; 84100; 84484; 85025; 85049; 99222; 99232; 99233; 99239; J2405; J3480; J3490; J7042

== ENCOUNTER 2020-08-19 03:29 | Outpatient (CLI) | payer BC, SELFPAY ==
[2020-08-19 15:25] LABS: Anion Gap 9.2 mmol/L (3-11); BUN 7 mg/dL (7-18); CO2 25.8 mmol/L (21.0-32.0); CREATININE 0.7 mg/dL (0.55-1.02); Calcium 9.2 mg/dL (8.5-10.1); Chloride 107 mmol/L (98-107); Glucose 86 mg/dL (74-106); Magnesium 1.8 mg/dL (1.8-2.4); Potassium 4.6 mmol/L (3.5-5.1); Sodium 142 mmol/L (136-145)
== END 2020-08-19 03:30 | disposition home or self-care (01) ==
LOC: LBO 03:29
PROVIDERS: PCP Nurse Practitioner; Visit Provider Internal Medicine
DX: E11.9 Type 2 diabetes mellitus without complications (principal); E87.6 Hypokalemia; E83.42 Hypomagnesemia
CPT/HCPCS: 36415; 80048; 83735

== ENCOUNTER 2020-08-19 03:41 | Outpatient (CLI) | payer BC, SELFPAY ==
--- NOTE | 2020-08-15 10:05 | DIABASSESS_ITS ---
Date of service: 08/15/20 Time of Service: 10:05 Diabetes Note NOTE: Spoke to Lisa on phone today. She reports being prescribed 35 units lantus HS, 15 units novolog at meals. Had Bonny 2 continuous glucose monitor placed at [facility] before discharge last week. CGM hypglycemia asnaram has been going off at night, frequent readins < 65mg/dl. Has reports getting low reading <60 mg, yesterday after taking 15 u novolog at lunch (lunch was boiled egg and cheese stick). Lisa has appt with development writer on 08/19/20. Encouraged Lisa to call [facility] to talk to provider re: adjusting insulin prescription to avoid hypoglycemic events. Reviewed need to follow balanced meals (carb/pro/fat) and to adjust insulin per blood sugar prior to meal/total carb at meal. Will provide further carbohydrate counting education, sliding scale insulin and blood sugar correction principles at next appt. Time Spent in Nutritional Counseling and Treatment: 20 min
--- NOTE | 2020-08-19 14:00 | NS.NUTBLAN_ITS ---
Lisa referred to Medical Nutrition Therapy for Diabetes Self Management Education s/p hospitalization at [facility] last week with HHS. DM meds Lantus 10 mg HS, 2-6 units novolog at meals. Had Libre2 Continuous Glucose Monitor placed per MD order prior to discharge. Ambulatory Glucose Profile indicates good glycemic control with current insulin regime/carb controlled diet. In target range 90% of time (70-180 mg/dl) in last 10 days and acceptable hyperglycemia levels. No hypoglycemic events noted since adjusting Lantus, novolog. Lisa brought in Bonny 14 sensors to be placed today as current sensor to end in 4 days. Educated Lisa on how to place sensors on her arm - however- Bonny 14 sensor is not compatible with Bonny 2 reader that she received while hospitalized. Recommended that Lisa complete QID finger sticks until able to get Bonny 2 sensor and then to continue to monitor with CGM/finger sticks as needed. Provided additional education on treatment of hypo/hyperglycemia and reviewed carb counting for optimal glycemic control. Electronics Worker [facility] to request Bonny 2 sensor be called into pharmacy. Current script (has 2 more refills) written for Bonny 14 sensor. Will follow up with Lisa in next 48 hours to discuss blood sugars/diet.
--- NOTE | 2020-08-19 14:43 | DIABASSESS_ITS ---
Date of service: 08/19/20 Time of Service: 14:43 Diabetes Note NOTE: Lisa returns for medical nutrition therapy and to have Bonny 2 sensor placed. Pharmacy provided incompatible sensor (Bonny 14) that does not work with Bonny 2 [place]. Will follow up withh pharmacy and PCP. Time Spent in Nutritional Counseling and Treatment: 15
== END 2020-08-19 03:42 | disposition home or self-care (01) ==
LOC: DS 03:41
PROVIDERS: PCP Nurse Practitioner; Visit Provider Dietitian, Registered
DX: E11.9 Type 2 diabetes mellitus without complications (principal); Z79.4 Long term (current) use of insulin; Z79.84 Long term (current) use of oral hypoglycemic drugs; Z71.3 Dietary counseling and surveillance
CPT/HCPCS: 97802

== ENCOUNTER 2020-09-04 04:04 | Outpatient (CLI) | payer BC, SELFPAY ==
--- NOTE | 2020-09-04 13:00 | NS.NUTBLAN_ITS ---
Lisa returns for Medical Nutrition Therapy for Diabetes self management education while using a Bonny 2 continuous glucose monitor. DM Meds: lantus 12 u HS, 4-10 units novolog at meals, 1000 mg metformin BID. Ambulatory Glucose Profile indicates in last 14 days, has been in target range 98% of the time with no hypoglycemic events and minimal (2% of time) hyperglycemic events. Dm2 well controlled at this time with DM meds/diet and life style changes. Diet recall indicates mostly well balanced meals, has started to eat 3 times daily and walks 1 mile per day. Wt: 252 lbs. Has lost about 10 lbs in last month. Lisa has concerns about timing her lantus at night if she has a late dinner and uses novolog at dinner meal. Recommend changing lantus to toujeo for more flexible dosing at PM. Will see PCP in next two weeks. Recommend A1C in November. No follow up planned at this time. Will follow up prn.
== END 2020-09-04 04:05 | disposition home or self-care (01) ==
LOC: DS 04:04
PROVIDERS: PCP Nurse Practitioner; Visit Provider Dietitian, Registered
DX: E11.9 Type 2 diabetes mellitus without complications (principal); Z79.4 Long term (current) use of insulin; Z71.3 Dietary counseling and surveillance
CPT/HCPCS: 97803

== ENCOUNTER 2020-09-19 12:11 | Outpatient (REF) | payer BC, SELFPAY ==
[2020-09-19 14:02] LABS: Potassium 4.9 mmol/L (3.5-5.1)
== END 2020-09-19 12:12 | disposition home or self-care (01) ==
LOC: NCHCN 12:11
PROVIDERS: PCP Nurse Practitioner; Visit Provider Nurse Practitioner Family
DX: E87.6 Hypokalemia (principal)
CPT/HCPCS: 84132

== ENCOUNTER 2021-03-11 14:56 | Emergency (ER) | payer OTHER, BC, SELFPAY ==
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
[2021-03-11 15:08] VITALS: BP 121/75; PULSE 81; RESP 14; TEMP 36.6; O2SAT 100
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
--- NOTE | 2021-03-11 15:39 | NUR.NOTE ---
Upper and lower right quadrant pain upon palpation Nursing Note:
[2021-03-11 15:40] LABS: Abs Immature Grans 0.04 10^3/uL (0.0-0.06); Absolute Basophil Count 0.04 10^3/uL (0.0-0.2); Absolute Eosinophil Count 0.27 10^3/uL (0.0-0.7); Absolute Lymphocyte Count 2.36 10^3/uL (1.2-3.4); Absolute Monocyte Count 0.61 10^3/uL (0.1-0.8); Basophils % 0.3; Eosinophils % 2.3; HCT 44.7 % (36.0-46.0); HGB 14.4 g/dL (11.2-15.7); Immature Grans % 0.3; Lymphocytes % 20.2; MCH 29.4 pg (27.0-33.0); MCHC 32.2 % (32.0-36.0); MCV 91.2 fL (80-95); Monocytes % 5.2; Neutrophils % 71.7; Nucleated RBC 0 %; Platelet Count 278 10^3/uL (130-400); RDW 12.7 % (11.7-14.6); RDW-SD 42.7 fL; WBC 11.69 10^3/uL (4.4-10.8)
[2021-03-11 15:43] LABS: Absolute Neutrophil Count 8.38 10^3/uL (1.2-6.7)
[2021-03-11 15:55] LABS: ALT 22 U/L (14-59); AST 15 U/L (15-37); Albumin 3.6 g/dL (3.4-5.0); Alkaline Phosphatase 72 U/L (46-116); Anion Gap 6.2 mmol/L (3-11); BUN 9 mg/dL (7-18); Bilirubin, Total 0.5 mg/dL (0.2-1.0); CO2 29.8 mmol/L (21.0-32.0); CREATININE 0.8 mg/dL (0.55-1.02); Calcium 8.9 mg/dL (8.5-10.1); Chloride 103 mmol/L (98-107); Glucose 114 mg/dL (74-106); Lipase 105 U/L (73-393); Potassium 3.9 mmol/L (3.5-5.1); Sodium 139 mmol/L (136-145); Total Protein 7.1 g/dL (6.4-8.2)
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
[2021-03-11] MEDS: Omnipaque 350 MG/ML 100 ML BTL IJ (16:23)
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
== END 2021-03-11 17:10 | disposition home or self-care (01) ==
PROVIDERS: Emergency Provider Physician Assistant; PCP Nurse Practitioner
DX: S16.1XXA Strain of muscle, fascia and tendon at neck level, initial encounter (principal); S39.012A Strain of muscle, fascia and tendon of lower back, initial encounter; S29.011A Strain of muscle and tendon of front wall of thorax, initial encounter; R10.10 Upper abdominal pain, unspecified; R10.32 Left lower quadrant pain; V49.49XA Driver injured in collision with other motor vehicles in traffic accident, initial encounter
CPT/HCPCS: 36415; 74177; 80053; 83690; 86850; 86900; 86901; 99285; 70450; 71260; 72125; 85025; 99284; J3490

== ENCOUNTER 2021-06-30 01:43 | Outpatient (CLI) | payer BC, SELFPAY ==
--- NOTE | 2021-06-30 12:30 | DI.MAMMO_ITS ---
Exam(s) MAMMO SCREENING EXAM: MAMMO SCREENING CLINICAL HISTORY: screening TECHNIQUE: Bilateral full field digital CC and MLO mammographic images were obtained with 3D tomosyn thesis and utilizing computer aided detection (CAD). COMPARISON: Available for comparison. FINDINGS: Masses/Architectural Distortion: None seen. Microcalcifications: No suspicious pleomorphic-type are seen. Skin Thickening/Nipple Retraction: None. IMPRESSION: 1. No significant interval change with no specific features of malignancy noted. 2. Unless there is more urgent need, screening mammography is recommended, as per [employer] guidelines. BI-RADS Category 1 - Negative Breast Density - Category B - Scattered areas of fibroglandular density Breast density category C or D implies that the patient has dense breast tissue. Dense breast tissue is very common and is not abnormal but dense breast tissue can make it harder to find cancer on a ma mmogram. Also, dense breast tissue may increase their breast cancer risk. This information about the result of the mammogram report was provided to the patient to raise their awareness. Use this report when you speak with the patient about their risks for breast cancer, which includes their family hist ory. At that time, you may recommend for more screening tests (Ultrasound or MRI) as they might be us eful based on their risk. A negative radiographic report should not delay biopsy if a dominant or clinically suspicious mass is present. Up to ten percent of cancers are not identified on mammography. A negative report may reinforce clinical impression. Adenosis and dense breasts may obscure an underlying neoplasm. False positive reports average 6 to 10%. Patient will receive a letter notifying them of these results.
== END 2021-06-30 02:03 ==
PROVIDERS: PCP Nurse Practitioner; Visit Provider Nurse Practitioner Family
DX: Z12.31 Encounter for screening mammogram for malignant neoplasm of breast (principal)
CPT/HCPCS: 77063; 77067

== ENCOUNTER 2021-08-03 03:16 | Outpatient (CLI) | payer BC, SELFPAY ==
--- NOTE | 2021-08-03 14:00 | NS.NUTBLAN_ITS ---
Lisa returns for diabetes self management education. 5'5 240 lbs BMI 40 No change in weight in last 12 months DM Meds: 35 units lantus at HS, 0-15 units aspart at meals, 1000 mg metformin BID 1:10 insulin to carb ratio, 1:50 Correction factor. Exercise: 30 min aerobic daily Ambulatory glucose profile ( 08/03/21-07/21/21) Average blood sugar: 143 mg/dl Time in Range (70-180 mg/dl): 85% 181-250 mg/dl: 14% > 250 mg/dl: 1 % no hypoglycemic episodes. Lisa reports using her Bonny 2 continuous glucose monitor to adjust her insulin to keep her daily glycemic management in range. Most recent AGP indicates well controlled diabetes no hypoglycemic events. Lisa is very knowledgeable on how to manage and correct elevated blood sugars and how to dose insulin at higher carb intake. Daily aerobic exercise has helped Lisa not gain weight this year despite starting insulin. She may benefit from an GLPra such as ozempic or trulicity to help with weight loss. Not a candiadate for SGLT2i as has hx of frequent yeast infections. Reviewed ways to reduce carb load at meals by increasing lean protein and non starchy vegetables. No follow up planned at this time.
== END 2021-08-03 03:17 | disposition home or self-care (01) ==
LOC: DS 03:17
PROVIDERS: PCP Nurse Practitioner; Visit Provider Dietitian, Registered
DX: E11.9 Type 2 diabetes mellitus without complications (principal); Z79.4 Long term (current) use of insulin; Z71.3 Dietary counseling and surveillance
CPT/HCPCS: 97803

== ENCOUNTER 2022-01-06 02:51 | Outpatient (CLI) | payer BC, SELFPAY ==
[2022-01-06 10:41] LABS: Anion Gap 7.3 mmol/L (3-11); BUN 11 mg/dL (7-18); CO2 28.7 mmol/L (21.0-32.0); CREATININE 0.8 mg/dL (0.55-1.02); Calcium 8.9 mg/dL (8.5-10.1); Chloride 102 mmol/L (98-107); Glucose 218 mg/dL (74-106); Potassium 4.6 mmol/L (3.5-5.1); Sodium 138 mmol/L (136-145)
== END 2022-01-06 02:52 | disposition home or self-care (01) ==
LOC: LBO 02:51
PROVIDERS: PCP Nurse Practitioner; Visit Provider Nurse Practitioner Family
DX: Z86.39 Personal history of other endocrine, nutritional and metabolic disease (principal)
CPT/HCPCS: 36415; 80048

== ENCOUNTER 2022-12-27 12:50 | Outpatient (CLI) | payer BC, SELFPAY ==
[2022-12-27 13:10] LABS: HCT 44.5 % (36.0-46.0); HGB 14.5 g/dL (11.2-15.7); MCH 28.9 pg (27.0-33.0); MCHC 32.6 % (32.0-36.0); MCV 89 fL (80-95); MPV 10.4 fL (8.0-11.0); Platelet Count 260 10^3/uL (130-400); RBC 5.01 10^6/uL (3.93-5.22); RDW 13.2 % (11.7-14.6); RDW-SD 42.9 fL; WBC 8.05 10^3/uL (4.4-10.8)
[2022-12-27 13:55] LABS: ALT 23 U/L (14-59); AST 19 U/L (15-37); Albumin 3.5 g/dL (3.4-5.0); Alkaline Phosphatase 77 U/L (46-116); Anion Gap 5.5 mmol/L (3-11); BUN 12 mg/dL (7-18); Bilirubin, Total 0.5 mg/dL (0.2-1.0); CO2 28.5 mmol/L (21.0-32.0); CREATININE 0.8 mg/dL (0.55-1.02); Calcium 8.7 mg/dL (8.5-10.1); Chloride 104 mmol/L (98-107); Estimated GFR 93.12 (mL/min/1.73m2); Glucose 154 mg/dL (74-106); Potassium 4.3 mmol/L (3.5-5.1); Sodium 138 mmol/L (136-145); Total Protein 7.2 g/dL (6.4-8.2); Vitamin B12 391 pg/mL (193-986)
[2022-12-28 09:11] LABS: HBs Antibody, Quant <3.1 mIU/mL (See Note); Hepatitis B Surface Ab Negative (See Note)
[2022-12-28 09:21] LABS: Hepatitis B Surface Ag Negative (Negative)
[2022-12-28 10:00] LABS: Hepatitis C Ab w Rflx HCV PCR Negative (Negative)
[2022-12-28 10:24] LABS: Hep B Core Antibody Negative (Negative)
[2022-12-29 10:29] LABS: C-Peptide 1.4 ng/mL (1.1 - 4.4)
[2022-12-31 06:22] LABS: GAD65 Ab Assay 0.12 nmol/L (<= 0.02)
== END 2022-12-27 12:51 | disposition home or self-care (01) ==
LOC: LBO 12:50
PROVIDERS: PCP Nurse Practitioner; Visit Provider Family Medicine
DX: E11.9 Type 2 diabetes mellitus without complications (principal); Z00.00 Encounter for general adult medical examination without abnormal findings; Z68.41 Body mass index [BMI] 40.0-44.9, adult; K76.0 Fatty (change of) liver, not elsewhere classified
CPT/HCPCS: 36415; 80053; 85027; 86341; 86704; 86706; 86803; 87340; 82607; 84681

== ENCOUNTER 2023-11-18 14:49 | Outpatient (CLI) | payer BC, SELFPAY ==
[2023-11-18 14:21] LABS: Anion Gap 7.9 mmol/L (3-11); BUN 8 mg/dL (7-18); CO2 29.1 mmol/L (21.0-32.0); CREATININE 0.8 mg/dL (0.55-1.02); Calcium 8.8 mg/dL (8.5-10.1); Chloride 103 mmol/L (98-107); Estimated GFR 92.54 (mL/min/1.73m2); Glucose 100 mg/dL (74-106); Magnesium 1.7 mg/dL (1.8-2.4); Potassium 4.3 mmol/L (3.5-5.1); Sodium 140 mmol/L (136-145)
== END 2023-11-18 14:50 | disposition home or self-care (01) ==
LOC: LBO 14:50
PROVIDERS: PCP Student in an Organized Health Care Education/Training Program; Visit Provider Student in an Organized Health Care Education/Training Program
DX: E28.2 Polycystic ovarian syndrome (principal)
CPT/HCPCS: 36415; 80048; 83735

== ENCOUNTER 2023-11-18 18:48 | Outpatient (REF) | payer BC, SELFPAY ==
[2023-11-18 16:49] LABS: COMMENT (LAB VIEW ONLY) 138.76 mg/dL; Microalb ug/mg Crea 6.6 ug/mg Cr
--- OUTSIDE RECORDS SUMMARY | 2023-11-18 18:54 | XMS_ITS | Encounter Summary ---
Author Organization [facility] Address [address] [place] [address] Care Team Providers Care School Director Name Role Phone Francisco Tata LIME SLAKER Primary Care Provider [phone] Encounter Details Date Type Department Care Team (Late st Contact Info) Description 03/20/2010 Results Only [facility] Laboratory Services - [facility] ([facility]) [address] [place], [place] [address] Nora Murillo, [facility] [address] [place] [address] [place] [address] Social History Tobacco Use Types Packs/Day Years Used Date Smoking Tobacco: Never Assessed Sex and Gender Information Value Date Recorded Sex Assigned at Not on file Gender Identity Not on file Sexual Orientation Not on file documented as of this encounter Plan of Treatment Not on file documented as of this encounter Procedures Procedure Name Priority Date/Time Associated Diagnosis Comments CYTOPATHOLOGY Routine 03/20/2010 0:00 EST documented in this encounter Results * CYTOPATHOLOGY (03/20/2010 0:00 EST) Pathology Report: CYTOPATHOLOGY REPORT ? Reports generated via electronic interface contain original data; ? however they are lacking the format of the original report. ? Caution should be taken when reading/interpreti ng unformatted reports. ? Name: ? MANUEL MONTERO ? Accession #: ? [id number] ? : ? 1980 (Age: 29) ??F ?Collect Date: ? 03/20/2010 ? Location: ? [facility] ? Receive Date: ? 03/23/2010 ? Provider: ?NORA JEFFREY HEARING AIDE TECHNICIAN ? Copy to: ? Specimen/Source: ?Pap Test, Cervix/Endocervix, ThinPrep Imaging System ? with manual evaluation ? Last Menstrual Period: ? 12/8/10 ? Previous Gynecologic Pathology: ? FERNIE I: 3/96 ? HPV: 3/96, 4/02 ? LSIL: 2/99,6/99, 8/00, 2/01, 1/03, 1/04 ? HSIL: 11/99 ? ASC-US: 1/22, 1/04 ? Treatment History: ? Colposcopy: 5/96, 7/99, 2/00 ? Miscellaneous treatment: ECC negative 5/96 ? LEEP: 2/99 ? SPECIMEN ADEQUACY ? Satisfactory for Evaluation ? - transformation zone component present ? GENERAL CATEGORIZATION ? Negative for Intraepithelial Lesion or Malignancy ? INTERPRETATION ? Reactive cellular changes associated with inflammation present (includes ?? repair). ? Document reviewed and electronically signed by: ? JALYN C TRIMBLE MD ? Report Date: ??03/26/2010 18:03 ? End of Report ? [facility] 03/20/2010 03/23/2010 Nroa Murillo HEARING AIDE TECHNICIAN PATHOLOGY ORDERABLES [facility] [address] [place] [address] documented in this encounter Visit Diagnoses Not on filedocumented in this encounter Care Teams School Director Relationship Specialty Start Date End Date Tata Singh NP [address] [place] [address] PCP - General 09/27/08 documented as of this encounter
--- OUTSIDE RECORDS SUMMARY | 2023-11-18 18:54 | XMS_ITS | Encounter Summary ---
Author Organization [facility] Address [address] [place] [address] Care Team Providers Care Finishing Wire Sawyer Name Role Phone Miramelanie Tata ANALOG DESIGN ENGINEER Primary Care Provider [phone] Encounter Details Date Type Department Care Team (Late st Contact Info) Description 04/20/2005 Results Only [facility] - Maple conversion [address] [place] [address] Nora Murillo, [facility] [address] [place] [address] [place] [address] Social History Tobacco Use Types [...] Priority Date/Time Associated Diagnosis Comments CYTOPATHOLOGY Routine 04/20/2005 0:00 EST documented in this encounter Results * CYTOPATHOLOGY (04/20/2005 0:00 EST) Pathology Report: CYTOPATHOLOGY REPORT Reports generated via electronic interface contain original data; however they are lacking the format of the original report. Caution should be taken when reading/interpreti ng unformatted reports. Name: ? MANUEL MONTERO ? Accession #: ? [id number] : ? 1980 (Age: 24) ??F ?Collect Date: ? 04/20/2005 Location: ? [facility] ? Receive Date: ? 04/21/2005 Provider: ?NORA MURILLO ELECTRONIC SECURITY SPECIALIST Copy to: ? Specimen/Source: ?ThinPrep Pap Test, Cervix/Endocervix, processed on [employer] ThinPrep Imaging System, with manual evaluation Last Menstrual Period: ? 04/13/05 Previous Gynecologic Pathology: ? FERNIE I: HPV LSIL: , , , 05/05, 04/06, 04/07 HSIL: ASC-US: 04/05 Treatment History: ? Colposcopy: , ECC - neg Colposcopy: , BX FERNIE I, ECC neg LEEP: exc, GSUK Other: ? Additional clinical information: 04-17-04 pap neg HPVA - HPV testing requested if ASC-US on the current ThinPrep Pap test. ? SPECIMEN ADEQUACY ? Satisfactory for Evaluation - transformation zone component present GENERAL CATEGORIZATION ? Negative for Intraepithelial Lesion or Malignancy ? Document reviewed and electronically signed by: ? RIVKA Baumann(ASCP) ? Report Date: ??04/22/2005 15:08 End of Report [facility] 04/20/2005 04/21/2005 Nora Murillo ELECTRONIC SECURITY SPECIALIST PATHOLOGY ORDERABLES [facility] [address] [place] [address] documented in this encounter Visit Diagnoses Not on filedocumented in this encounter Care Teams Finishing Wire Sawyer Relationship Specialty Start Date End Date Tata Singh NP [address] [place] [address] [address] [place] [phone] PCP - General 09/27/08 documented as of this encounter
--- OUTSIDE RECORDS SUMMARY | 2023-11-18 18:54 | XMS_ITS | Encounter Summary ---
Author Organization [facility] Address [facility] [place] [address] Care Team Providers Care Telephone Service Adviser Name Role Phone Francisco Tata Wasserman APRN Primary Care Provider + Encounter Details Date Type Department Care Team (Late st Contact Info) Description 02/24/2009 Orders [place] [address] Bautista Tierney MD [facility] [place] [address] Social History Tobacco Use Types Packs/Day Years Used Date Smoking Tobacco: Never Assessed Sex and Gender Information Value Date Recorded Sex Assigned at Not on file Gender Identity Not on file Sexual Orientation Not on file documented as of this encounter Plan of Treatment Not on file documented as of this encounter Procedures Procedure Name Priority Date/Time Associated Diagnosis Comments SURGICAL PATHOLOGY REPORT Routine 02/24/2009 3:10 PM EST documented in this encounter Results * Surgical Pathology Report (02/24/2009 3:10 PM EST) Surgical Pathology Report [id number] ? Location: 4T The signing pathologist has (i) examined the relevant preparation(s) for the specimen(s) and (ii) rendered or confirmed the diagnosis(es). . ?Pathology Surgical Pathology Final Report Clinical Information Specimen Submitted: A - Tissue, duodenum Clinical History: Celiac disease, ? Clinical Diagnosis: Celiac dz Gross Description Labeled/Fixativ e: ? Tissue duodenum, formalin. Qty/Size/Weight : ?Five, ranging from 0.2 cm to 0.3 cm in ?greatest dimension. Tissue Description: ?? Soft, corral tissues. Sections/Proces sing: ??(T1) ??vms/EJR Microscopic Description Slides reviewed, microscopic description not recorded. Diagnosis Duodenum, biopsy: Duodenal mucosa within normal limits including preserved villous architecture. CR-0 02/26/09 AAS 02/26/09 Verified by: ? Christ POSEY, Shyann Vergara ?Pathologist ?(Electronic Signature) The attending pathologist whose signature appears on this report has reviewed all diagnostic slides and has edited the gross and/or microscopic portion of the report in rendering the final pathologic diagnosis. JAC JIMENEZ 02/24/2009 3:10 PM EST Bautista Tierney MD PATHOLOGY/CYTOLOGY O RDERABLES Performing Organization Address City/State/[facility] Co de Phone Number [facility] documented in this encounter Visit Diagnoses Not on filedocumented in this encounter Care Teams Telephone Service Adviser Relationship Specialty Start Date End Date Tata Singh, SENIOR DATA MODELER PCP - General 02/24/10 documented as of this encounter
--- OUTSIDE RECORDS SUMMARY | 2023-11-18 18:54 | XMS_ITS | Clinical Summary ---
Author Organization [facility] Address [address] [place] [address] Care Team Providers Care Flare Worker Name Role Phone Tata Singh NP Primary Care Provider [phone] Social History Tobacco Use Types Packs/Day Years Used Date Smoking Tobacco: Never Assessed Sex and Gender Information Value Date Recorded Sex Assigned at Not on file Gender Identity Not on file Sexual Orientation Not on file Plan of Treatment Health Maintenance Due Date Last Done Comments Hepatitis B Vaccine (1 of 3 - 19+ 3-dose series) 07/09 COVID-19 Vaccine ( season) 2022 Hepatitis C Screen Completed 12/27/2022 Procedures Procedure Name Priority Date/Time Associated Diagnosis Comments HEPATITIS C AB W REFLEX TO HCV RNA BY PCR Routine 12/27/2022 12:45 EDT from Last 3 Months or Most Recently Relevant to Health Maintenance Results * HEPATITIS C AB W REFLEX TO HCV RNA BY PCR (12/27/2022 12:45 EDT) Hep C Antibody Negative Negative 12/28/2022 9:55 EDT [facility] Blood VENOUS BLOOD / Unknown 12/27/2022 12:45 EDT 12/27/2022 21:23 EDT Provider Outr Resulting Lab CHEMISTRY & BLOOD GAS ORDERABLES [facility] [address] [place] [address] from Last 3 Months or Most Recently Relevant to Health Maintenance Care Teams Flare Worker Relationship Specialty Start Date End Date Tata Singh NP [address] [place] [address] [address] [place] [address] PCP - General 09/27/08
--- OUTSIDE RECORDS SUMMARY | 2023-11-18 18:54 | XMS_ITS | Encounter Summary ---
Author Organization [facility] Address [address] [place] [address] Care Team Providers Care Assurance Manager Name Role Phone Francisco Tata INTER FOLD ROLL CUTTER Primary Care Provider [phone] Encounter Details Date Type Department Care Team (Late st Contact Info) Description 09/28/2006 Results Only [facility] - Maple conversion [address] [place] [address] [place], [place] [id number] Social History Tobacco Use Types Packs/Day Years Used Date Smoking Tobacco: Never Assessed Sex and Gender Information Value Date Recorded Sex Assigned at Not on file Gender Identity Not on file Sexual Orientation Not on file documented as of this encounter Plan of Treatment Not on file documented as of this encounter Procedures Procedure Name Priority Date/Time Associated Diagnosis Comments CYTOPATHOLOGY Routine 09/28/2006 0:00 EDT documented in this encounter Results * CYTOPATHOLOGY (09/28/2006 0:00 EDT) Pathology Report: CYTOPATHOLOGY REPORT Reports generated via electronic interface contain original data; however they are lacking the format of the original report. Caution should be taken when reading/interpreti ng unformatted reports. Name: ? MANUEL MONTERO ? Accession #: ? [id number] : ? 1980 (Age: 26) ??F ?Collect Date: ? 09/28/2006 Location: ? [facility] ? Receive Date: ? 09/29/2006 Provider: ?ANGELINE FERNANDEZ CNM Copy to: ? Specimen/Source: ?ThinPrep Pap Test, Cervix/Endocervix, processed on [employer] ThinPrep Imaging System, with manual evaluation Last Menstrual Period: ? 10/31/05 Menstrual/Pregnanc y Status: ? Post Previous Gynecologic Pathology: ? FERNIE I: LSIL: , , , 05/05, 04/06 & 04/07 HPV negative FERNIE I: Treatment History: ? Colposcopy: ECC neg Colposcopy: ECC neg Cervical biopsy: FERNIE I LEEP: exc. GSUK Other: ? Additional clinical information: 04/08 & 04/09 paps neg. HPVA - HPV testing requested if ASC-US on the current ThinPrep Pap test. ? SPECIMEN ADEQUACY ? Satisfactory for Evaluation - transformation zone component present GENERAL CATEGORIZATION ? Negative for Intraepithelial Lesion or Malignancy ? Document reviewed and electronically signed by: ? Angeline Gilliam, NOELLE(ASCP) ? Report Date: ??10/06/2006 09:21 End of Report [facility] 09/28/2006 09/29/2006 Angeline Fernandez CNM PATHOLOGY ORDERABLES [facility] [address] [place] [address] documented in this encounter Visit Diagnoses Not on filedocumented in this encounter Care Teams Assurance Manager Relationship Specialty Start Date End Date Tata Singh NP [address] [place] [address] [address] [place] [phone] PCP - General 09/27/08 documented as of this encounter
--- OUTSIDE RECORDS SUMMARY | 2023-11-18 18:54 | XMS_ITS | Continuity of Care Document ---
Author Organization [facility] Ambulatory Clinics Address [address] [place] [address] Encounter [facility] NBR [id number] Date(s): 03/11/22 - 03/11/22 [facility] Ambulatory Clinics [address] [place], [place] [address] Encounter Diagnosis Pain in ear(Discharge Diagnosis) - 03/11/22 Rhinorrhea(Discharge Diagnosis) - 03/11/22 Discharge Disposition: Home or Self Care Attending Physician: Emily Dudley APRN Allergies, Adverse Reactions, Alerts Substance Reaction Severity Status clindamycin Unknown Active amoxicillin Unknown Active Bee Stings Unknown Active Omnicef Unknown Active Tree Nuts Unknown Active Latex Unknown Active Functional Status 03/11/22 Other exposure to Infectious Disease Non e Immunizations Given and Recorded Vaccine Date Status Refusal Reason influenza virus vaccine, inactivated 1 01/28/22 Gi [place] 1Early/Late Reason: Early/Late Reason: Back-charting an earlier dose Medications albuterol 0 Refill(s) Start Date: 03/11/22 Status: Ordered Christina Allergy 0 Refill(s) Start Date: 03/11/22 Status: Ordered HumaLOG KwikPen 0 Refill(s) Start Date: 03/11/22 Status: Ordered Lantus Solostar Pen 0 Refill(s) Start Date: 03/11/22 Status: Ordered loratadine 0 Refill(s) Start Date: 03/11/22 Status: Ordered magnesium oxide 400 mg (241.3 mg elemental magnesium) oral tablet 400 mg = 1 tab, Oral, Daily, # 7 tab, 0 Refill(s) Start Date: 03/11/22 Stop Date: 03/18/22 Status: Ordered metFORMIN 1000 mg oral tablet 1,000 mg = 1 tab, Oral, BID, # 60 tab, 0 Refill(s) Start Date: 03/11/22 Status: Ordered omeprazole 20 mg oral delayed release capsule 20 mg = 1 cap, Oral, Daily, # 30 cap, 0 Refill(s) Start Date: 03/11/22 Status: Ordered potassium chloride 20 mEq oral tablet, extended release 20 mEq = 1 tab, Oral, BID, # 60 tab, 0 Refill(s) Start Date: 03/11/22 Status: Ordered spironolactone 50 mg oral tablet 50 mg = 1 tab, Oral, Daily, # 30 tab, 0 Refill(s) Start Date: 03/11/22 Status: Ordered ZyrTEC 0 Refill(s) Start Date: 03/11/22 Status: Ordered Problem List Condition Confirmation Course Effective Dates Status Health St atus Informant Asthma Confirmed Active Diabetes 1.5, managed as type 1 Confirmed Active PCOS (polycystic ovarian syndrome) Confirmed Active Vital Signs Most recent to oldest [Reference Range]: 1 Temperature Tympanic [36.6-37.9 Deg C] 3 6.7 Deg C (03/11/22 11:48 AM) Peripheral Pulse Rate [60-100 bpm] 106 b pm *HI* (03/11/22 11:48 AM) Blood Pressure [90-140/60-90 mmHg] 144/9 6mmHg *HI* (03/11/22 11:48 AM) Weight 117.93 kg (03/11/22 11:48 AM) Weight Measured (lbs) 259.991 lb (03/11/22 11:48 AM) Social History Social History Type Response Tobacco Former tobacco user Tobacco Use:. Sex Hospital Discharge Instructions Patient Education 03/11/2022 11:19:53 Earache, Adult Earache, Adult An earache, or ear pain, can be caused by many things, including: ??? An infection. ??? Ear wax buildup. ??? Ear pressure. ??? Something in the ear that should not be there (foreign body). ??? A sore throat. ??? Tooth problems. ??? Jaw problems. Treatment of the earache will depend on the cause. If the cause is not clear or cannot be determined, you may need to watch your symptoms until your earache goes away or until a cause is found. Follow these instructions at home: Medicines ??? Take or apply jeov-kra-yyxemfq and prescription medicines only as told by your health care provider. ??? If you were prescribed an antibiotic medicine, use it as told by your health care provider. Do not stop using the antibiotic even if you start to feel better. ??? Do not put anything in your ear other than medicine that is prescribed by your health care provider. Managing pain If directed, apply heat to the affected area as often as told by your health care provider. Use theheat source that your health care provider recommends, such as a moist heat pack or a heating pad. ??? Place a towel between your skin and the heat source. ??? Leave the heat on for 20???30 minutes. ??? Remove the heat if your skin turns bright red. This is especially important if you are unable to feel pain, heat, or cold. You may have a greater risk of getting burned. If directed, put ice on the affected area as often as told by your health care provider. To do this: ??? Put ice in a plastic bag. ??? Place a towel between your skin and the bag. ??? Leave the ice on for 20 minutes, 2???3 times a day. General instructions ??? Pay attention to any changes in your symptoms. ??? Try resting in an upright position instead of lying down. This may help to reduce pressure in your ear and relieve pain. ??? Chew gum if it helps to relieve your ear pain. ??? Treat any allergies as told by your health care provider. ??? Drink enough fluid to keep your urine pale yellow. ??? It is up to you to get the results of any tests that were done. Ask your health care provider, or the department that is doing the tests, when your results will be ready. ??? Keep all follow-up visits as told by your health care provider. This is important. Contact a health care provider if: ??? Your pain does not improve within 2 days. ??? Your earache gets worse. ??? You have new symptoms. ??? You have a fever. Get help right away if you: ??? Have a severe headache. ??? Have a stiff neck. ??? Have trouble swallowing. ??? Have redness or swelling behind your ear. ??? Have fluid or blood coming from your ear. ??? Have hearing loss. ??? Feel dizzy. Summary ??? An earache, or ear pain, can be caused by many things. ??? Treatment of the earache will depend on the cause. Follow recommendations from your health careprovider to treat your ear pain. ??? If the cause is not clear or cannot be determined, you may need to watch your symptoms until your earache goes away or until a cause is found. ??? Keep all follow-up visits as told by your health care provider. This is important. This information is not intended to replace advice given to you by your health care provider. Make sure you discuss any questions you have with your health care provider. Document Revised: 10/27/2019 Document Reviewed: 10/27/2019 Paper.li Patient Education ?? 2021 [employer]. 03/11/2022 11:19:50 Postnasal Drip Postnasal Drip Postnasal drip is the feeling of mucus going down the back of your throat. Mucus is a slimy substance that moistens and cleans your nose and throat, as well as the air pockets in face bones near yourforehead and cheeks (sinuses). Small amounts of mucus pass from your nose and sinuses down the backof your throat all the time. This is normal. When you produce too much mucus or the mucus gets too thick, you can feel it. Some common causes of postnasal drip include: ??? Having more mucus because of: ??? A cold or the flu. ??? Allergies. ??? Cold air. ??? Certain medicines. ??? Having more mucus that is thicker because of: ??? A sinus or nasal infection. ??? Dry air. ??? A food allergy. Follow these instructions at home: Relieving discomfort ??? Gargle with a salt-water mixture 3???4 times a day or as needed. To make a salt-water mixture, completely dissolve ?1 tsp of salt in 1 cup of warm water. ??? If the air in your home is dry, use a humidifier to add moisture to the air. ??? Use a saline spray or container (neti pot) to flush out the nose (nasal irrigation). These methods can help clear away mucus and keep the nasal passages moist. General instructions ??? Take rrln-box-nzkockg and prescription medicines only as told by your health care provider. ??? Follow instructions from your health care provider about eating or drinking restrictions. You may need to avoid caffeine. ??? Avoid things that you know you are allergic to (allergens), like dust, mold, pollen, pets, or certain foods. ??? Drink enough fluid to keep your urine pale yellow. ??? Keep all follow-up visits as told by your health care provider. This is important. Contact a health care provider if: ??? You have a fever. ??? You have a sore throat. ??? You have difficulty swallowing. ??? You have headache. ??? You have sinus pain. ??? You have a cough that does not go away. ??? The mucus from your nose becomes thick and is green or yellow in color. ??? You have cold or flu symptoms that last more than 10 days. Summary ??? Postnasal drip is the feeling of mucus going down the back of your throat. ??? If your health care provider approves, use nasal irrigation or a nasal spray 2???4 times a day. ??? Avoid things that you know you are allergic to (allergens), like dust, mold, pollen, pets, or certain foods. This information is not intended to replace advice given to you by your health care provider. Make sure you discuss any questions you have with your health care provider. Document Revised: 12/30/2020 Document Reviewed: 12/30/2020 Paper.li Patient Education ?? 2021 [employer]. Physician Outpatient Note * Emily Dudley, LARRIMAN HELPER: PERFORM Event Display: Office Clinic Note Physician Authored Date: [id number] MANUEL MONTERO :1980 Age:41 years Sex:Female Visit Date:03/11/2022 Chief Complaint pt reports right ear pain started tuesday/tuesday, headache, sore throat History of Present Illness Patient is a 41-year-old female who presents today with a chief complaint??of??viral syndrome including headache, sore throat, and right ear pain.?? Denies any fever, chills, body aches. Physical Exam Vitals & Measurements T:??36.7?C ??(Tympanic)?? HR:??106??(Peripheral)?? BP:??144/96?? SpO2:??98%?? WT:??117.93??kg?? Pain Score:??4?? General: Well-appearing, no acute distress, alert and oriented x3. Skin: No concerning lesions in examined areas. Head: Normal cephalic without trauma or injury. Neck: Supple, nontender, normal range of motion Eye: Pupils reactive. ??Conjunctiva clear. Sclera nonicteric. ??No swelling, obvious foreign bodies. ??Extraocular movement intact. ENT ear:?? TMs normal bilaterally. ??Nose: No discharge, normal mucosa, no swelling. ??Sinuses: Nontender to percussion. ??Oropharynx: Normal external, mucosal without mass, lesions, ulcerations.?No erythema, exudate, lesions, uvula midline. Cardiovascular: Regular rate and rhythm. ??No murmur, rubs, or gallops. Respiratory: Clear to auscultation bilaterally. ??No wheezes, rales, rhonchi. Assessment/Plan 1.??Pain in ear??H92.09 Patient was evaluated for upper respiratory symptoms. ??Physical exam is unremarkable, vital signs were obtained and reviewed. ??Rapid Covid testing is negative.??Patient will be discharged home withinstruction on home care and with viral syndrome, Tylenol or ibuprofen for pain or fever, increase fluid intake, provide rest. ??Follow-up with primary care for lack of improvement. ??Seek urgent and/or emergent care for increased shortness of breath, fever, worsening cough or any other worsening or concerning symptoms. 2.??Rhinorrhea??J34.89 Patient Instructions Utilize mjui-mwq-lrvspqk Tylenol/ibuprofen, consider antihistamines or??decongestants for runny nose. ??Or??use Flonase intranasal spray. ??You should follow-up with your primary care for lack of improvement. ??Seek urgent and or emergent care for any worsening or concerning symptoms Patient Education Earache, Adult Postnasal Drip Problem List/Past Medical History Ongoing Asthma Diabetes 1.5, managed as type 1 PCOS (polycystic ovarian syndrome) Historical No qualifying data Medications albuterol Christina Allergy HumaLOG KwikPen Lantus Solostar Pen loratadine magnesium oxide 400 mg (241.3 mg elemental magnesium) oral tablet, 400 mg= 1 tab, Oral, Daily metFORMIN 1000 mg oral tablet, 1000 mg= 1 tab, Oral, BID omeprazole 20 mg oral delayed release capsule, 20 mg= 1 cap, Oral, Daily potassium chloride 20 mEq oral tablet, extended release, 20 mEq= 1 tab, Oral, BID spironolactone 50 mg oral tablet, 50 mg= 1 tab, Oral, Daily ZyrTEC Allergies Bee Stings Latex Omnicef Tree Nuts amoxicillin clindamycin Social History Electronic Cigarette/Vaping Electronic Cigarette Use: Never. Tobacco Former tobacco user Tobacco Use:. Immunizations Vaccine Date Status influenza virus vaccine, inactivated 01/28/2022 Given Comments : Early/Late Reason: Back-charting an earlier dose Electronically Signed on 03/12/22 09:41 AM Emily Dudley APRN Outpatient Summary note * Emily Dudley APRN: PERFORM Event Display: Ambulatory Patient Summary Authored Date: [id number] MANUEL MONTERO :1980 Age:41 years Sex:Female Visit Date:03/11/2022 Ambulatory Visit Instructions We would like to thank you for allowing us to assist you with your healthcare needs. The following includes patient education materials and information regarding your injury/illness. After you leave the office, you may get your health information including your test results, physician notes and discharge information by accessing your Patient Portal. If you do not have a patient portal account set up, please contact __. Your Next Steps Instructions From Your Care Team Utilize tvpv-pzq-mtzkrts Tylenol/ibuprofen, consider antihistamines or??decongestants for runny nose. ??Or??use Flonase intranasal spray. ??You should follow-up with your primary care for lack of improvement. ??Seek urgent and or emergent care for any worsening or concerning symptoms Medications What How Much When Instructions Unchanged albuterol Unchanged cetirizine (ZyrTEC) Unchanged fexofenadine (Christina Allergy) Unchanged insulin glargine (Lantus Solostar Pen) Unchanged insulin lispro (HumaLOG KwikPen) Unchanged loratadine Unchanged magnesium oxide (magnesium oxide 400 mg (241.3 mg elemental magnesium) oral tablet) 1 tab Oral (given by mouth) Every day Duration: 7 Days Unchanged metFORMIN (metFORMIN 1000 mg oral tablet) 1 tab Oral (given by mouth) 2 times a day Unchanged omeprazole (omeprazole 20 mg oral delayed release capsule) 1 Capsules Oral (given by mouth) Every day Unchanged potassium chloride (potassium chloride 20 mEq oral tablet, extended release) 1 tab Oral (given by mouth) 2 times a day Unchanged spironolactone (spironolactone 50 mg oral tablet) 1 tab Oral (given by mouth) Every day Your Summary Your Diagnosis Pain in ear Rhinorrhea Your Care Team Attending Physician - Emily Dudley APRN Allergies Bee Stings Latex Omnicef Tree Nuts amoxicillin clindamycin Education Materials Earache, Adult An earache, or ear pain, can be caused by many things, including: ? An infection. ? Ear wax buildup. ? Ear pressure. ? Something in the ear that should not be there (foreign body). ? A sore throat. ? Tooth problems. ? Jaw problems. Treatment of the earache will depend on the cause. If the cause is not clear or cannot be determined, you may need to watch your symptoms until your earache goes away or until a cause is found. Follow these instructions at home: Medicines ? Take or apply wjqo-ocw-suqclkm and prescription medicines only as told by your health care provider. ? If you were prescribed an antibiotic medicine, use it as told by your health care provider. Do not stop using the antibiotic even if you start to feel better. ? Do not put anything in your ear other than medicine that is prescribed by your health care provider. Managing pain If directed, apply heat to the affected area as often as told by your health care provider. Use theheat source that your health care provider recommends, such as a moist heat pack or a heating pad. ? Place a towel between your skin and the heat source. ? Leave the heat on for 20???30 minutes. ? Remove the heat if your skin turns bright red. This is especially important if you are unable to feel pain, heat, or cold. You may have a greater risk of getting burned. If directed, put ice on the affected area as often as told by your health care provider. To do this: ? Put ice in a plastic bag. ? Place a towel between your skin and the bag. ? Leave the ice on for 20 minutes, 2???3 times a day. General instructions ? Pay attention to any changes in your symptoms. ? Try resting in an upright position instead of lying down. This may help to reduce pressure in your ear and relieve pain. ? Chew gum if it helps to relieve your ear pain. ? Treat any allergies as told by your health care provider. ? Drink enough fluid to keep your urine pale yellow. ? It is up to you to get the results of any tests that were done. Ask your health care provider, or the department that is doing the tests, when your results will be ready. ? Keep all follow-up visits as told by your health care provider. This is important. Contact a health care provider if: ? Your pain does not improve within 2 days. ? Your earache gets worse. ? You have new symptoms. ? You have a fever. Get help right away if you: ? Have a severe headache. ? Have a stiff neck. ? Have trouble swallowing. ? Have redness or swelling behind your ear. ? Have fluid or blood coming from your ear. ? Have hearing loss. ? Feel dizzy. Summary ? An earache, or ear pain, can be caused by many things. ? Treatment of the earache will depend on the cause. Follow recommendations from your health care provider to treat your ear pain. ? If the cause is not clear or cannot be determined, you may need to watch your symptoms until your earache goes away or until a cause is found. ? Keep all follow-up visits as told by your health care provider. This is important. This information is not intended to replace advice given to you by your health care provider. Make sure you discuss any questions you have with your health care provider. Document Revised: 10/27/2019 Document Reviewed: 10/27/2019 [employer] Patient Education ?? 2021 [employer] Postnasal Drip Postnasal drip is the feeling of mucus going down the back of your throat. Mucus is a slimy substance that moistens and cleans your nose and throat, as well as the air pockets in face bones near yourforehead and cheeks (sinuses). Small amounts of mucus pass from your nose and sinuses down the backof your throat all the time. This is normal. When you produce too much mucus or the mucus gets too thick, you can feel it. Some common causes of postnasal drip include: ? Having more mucus because of: ? A cold or the flu. ? Allergies. ? Cold air. ? Certain medicines. ? Having more mucus that is thicker because of: ? A sinus or nasal infection. ? Dry air. ? A food allergy. Follow these instructions at home: Relieving discomfort ? Gargle with a salt-water mixture 3???4 times a day or as needed. To make a salt- water mixture, completely dissolve ?1 tsp of salt in 1 cup of warm water. ? If the air in your home is dry, use a humidifier to add moisture to the air. ? Use a saline spray or container (neti pot) to flush out the nose (nasal irrigation). These methods can help clear away mucus and keep the nasal passages moist. General instructions ? Take vuii-mef-cmhhxhw and prescription medicines only as told by your health care provider. ? Follow instructions from your health care provider about eating or drinking restrictions. You may need to avoid caffeine. ? Avoid things that you know you are allergic to (allergens), like dust, mold, pollen, pets, or certain foods. ? Drink enough fluid to keep your urine pale yellow. ? Keep all follow-up visits as told by your health care provider. This is important. Contact a health care provider if: ? You have a fever. ? You have a sore throat. ? You have difficulty swallowing. ? You have headache. ? You have sinus pain. ? You have a cough that does not go away. ? The mucus from your nose becomes thick and is green or yellow in color. ? You have cold or flu symptoms that last more than 10 days. Summary ? Postnasal drip is the feeling of mucus going down the back of your throat. ? If your health care provider approves, use nasal irrigation or a nasal spray 2???4 times a day. ? Avoid things that you know you are allergic to (allergens), like dust, mold, pollen, pets, or certain foods. This information is not intended to replace advice given to you by your health care provider. Make sure you discuss any questions you have with your health care provider. Document Revised: 12/30/2020 Document Reviewed: 12/30/2020 [employer] Patient Education ?? 2021 [employer]. Electronically Signed on: 03/11/2022 12:20 ESTSigned by:ERVIN
--- OUTSIDE RECORDS SUMMARY | 2023-11-18 18:54 | XMS_ITS | Encounter Summary ---
Author Organization [facility] Address [address] [place] [address] Care Team Providers Care Administrative Professional Name Role Phone Tata Singh WALLPAPER HANGER HELPER Primary Care Provider [phone] Encounter Details Date Type Department Care Team (Late st Contact Info) Description 08/07/2020 Lab Requisition [facility] Pathology & Laboratory Medicine - [facility] [address] [place], [place] [id number] Outr Resulting Lab, Provider Social History Tobacco Use Types Packs/Day Years Used Date Smoking Tobacco: Never Assessed Sex and Gender Information Value Date Recorded Sex Assigned at Not on file Gender Identity Not on file Sexual Orientation Not on file documented as of this encounter Plan of Treatment Not on file documented as of this encounter Procedures Procedure Name Priority Date/Time Associated Diagnosis Comments OSMOLALITY Routine 08/06/2020 19:30 EDT documented in this encounter Results * (ABNORMAL) OSMOLALITY (08/06/2020 19:30 EDT) Osmolality, Serum 306(H) 275 - 295 mOsm/kg 08/07/2020 16:37 EDT [facility] Blood VENOUS BLOOD / Unknown 08/06/2020 19:30 EDT 08/07/2020 15:59 EDT Provider Outr Resulting Lab CHEMISTRY & BLOOD GAS ORDERABLES [facility] [address] [place] [address] documented in this encounter Visit Diagnoses Not on filedocumented in this encounter Care Teams Administrative Professional Relationship Specialty Start Date End Date Tata Singh NP [address] [place] [address] [address] [place] [id number] PCP - General 09/27/08 documented as of this encounter
--- OUTSIDE RECORDS SUMMARY | 2023-11-18 18:54 | XMS_ITS | Clinical Summary ---
Author Organization [facility] Address [facility] [place] [address] Care Team Providers Care Airborne Sensor Specialist Name Role Phone Tata Singh APRN Primary Care Provider + Allergies Active Allergy Reactions Criticality Noted Date Comments Celecoxib High CIS - Anaphylaxis Medications Medication Sig Dispensed Refills Start Date End Date Status ibuprofen (ADVIL;MOTRIN) 800 mg tablet 02/24/2009 Active FLUTICASONE PROPIONATE (FLOVENT HFA INHL) 02/24/2009 Active Levalbuterol Tartrate (XOPENEX HFA) 45 mcg/Actuation inhaler 02/24/2009 Active triamcinolone (KENALOG) 0.1 % cream 02/24/2009 Active Immunizations Name Administration Dates Next Due Influenza PF, Split 02/04/2014 Influenza Quadrivalent, Preservative Free 2016 Influenza Trivalent w/Preservative 01/14/2016 Moderna Covid-19 Monovalent 12Yr+ ([employer] Fabricator Trimmer 100mcg) 03/26/2021,07/22/2020,06/24/2020 Social History Tobacco Use Types Packs/Day Years Used Date Smoking Tobacco: Never Assessed Sex and Gender Information Value Date Recorded Sex Assigned at Not on file Gender Identity Not on file Sexual Orientation Not on file Plan of Treatment Health Maintenance Due Date Last Done Comments CT Colonography 1978 Colonoscopy 1980 Colorectal Cancer Screening 1980 FIT DNA 1980 FIT 1980 Sigmoidoscopy (10 year) with FIT yearly 1980 Sigmoidoscopy 1980 HIV screen 1996 Hepatitis C Screening 1996 Hepatitis B vaccine (0-59 yrs) (1) 1997 Tdap adult 1997 Tetanus vaccine 1997 HPV test 2008 PAP Smear 2008 Breast Cancer Share Decision Needed 2018 Breast Cancer screening 2018 Covid-19 Vaccine ( season) 2022 03/26/2021, 07/22/2020, 06/24/2020 Influenza (Flu) vaccine (1 o f 1 - Influenza standard series) 12/04/2023 02/01/2017, 01/14/2016, 02/04/2014 Care Teams Airborne Sensor Specialist Relationship Specialty Start Date End Date Tata Singh, PATRICK PCP - General 02/24/10
--- OUTSIDE RECORDS SUMMARY | 2023-11-18 18:54 | XMS_ITS | Encounter Summary ---
Author Organization [facility] Address [address] [place] [address] Care Team Providers Care Learning Manager Name Role Phone Tata Singh NP Primary Care Provider [phone] Encounter Details Date Type Department Care Team (Late st Contact Info) Description 12/27/2022 Lab Requisition [facility] Pathology & Laboratory Medicine - [facility] [address] [place] [address] Outr Resulting Lab, Provider Social History Tobacco [...] RNA BY PCR Routine 12/27/2022 12:45 EDT HEPATITIS B CORE ANTIBODY (TOTAL) Routine 12/27/2022 12:45 EDT HEPATITIS B SURFACE ANTIBODY Routine 12/27/2022 12:45 EDT HEPATITIS B SURFACE ANTIGEN Routine 12/27/2022 12:45 EDT documented in this encounter Results * HEPATITIS B SURFACE ANTIBODY (12/27/2022 12:45 EDT) Hep B Surface Ab, Quantitative <3.1 See Note mIU/mL 12/28/2022 9:06 EDT [facility] Comment: Reference Range for Hep B Surface Ab, Quant: Positive: >= 10.0 mIU/mL Negative: ??< 10.0 mIU/mL Patient is presumed to not be immune to infection with Hepatitis B Virus. Hep B Surface Ab, Qualitative Negative See Note 12/28/2022 9:06 EDT [facility] Comment: Reference Range for Hep B Surface Ab, Qual: Unvaccinated: ??Negative Vaccinated: ??Positive Blood VENOUS BLOOD / Unknown 12/27/2022 12:45 EDT 12/27/2022 21:23 EDT Provider Outr Resulting Lab CHEMISTRY & BLOOD GAS ORDERABLES Performing Organization Address City/[facility]/ZIP Co de Phone Number [facility] [address] [place] [address] * HEPATITIS B CORE ANTIBODY (TOTAL) (12/27/2022 12:45 EDT) Hepatitis B Core Ab, Total Negative Negative 12/28/2022 10:18 EDT [facility] Blood VENOUS BLOOD / Unknown 12/27/2022 12:45 EDT 12/27/2022 21:23 EDT Provider Outr Resulting Lab CHEMISTRY & BLOOD GAS ORDERABLES Performing Organization Address City/[facility]/ZIP Co de Phone Number [facility] [address] [place] [phone] * HEPATITIS B SURFACE ANTIGEN (12/27/2022 12:45 EDT) Hep B Surface Ag Negative Negative 12/28/2022 9:16 EDT [facility] Blood VENOUS BLOOD / Unknown 12/27/2022 12:45 EDT 12/27/2022 21:23 EDT Provider Outr Resulting Lab CHEMISTRY & BLOOD GAS ORDERABLES Performing Organization Address City/[facility]/ZIP Co de Phone Number [facility] [address] [place] [address] * HEPATITIS C AB W REFLEX TO HCV RNA BY PCR (12/27/2022 12:45 EDT) Hep C Antibody Negative Negative 12/28/2022 9:55 EDT [facility] Blood VENOUS BLOOD / Unknown 12/27/2022 12:45 EDT 12/27/2022 21:23 EDT Provider Outr Resulting Lab CHEMISTRY & BLOOD GAS ORDERABLES [facility] [address] [place] [address] documented in this encounter Visit Diagnoses Not on filedocumented in this encounter Care Teams Learning Manager Relationship Specialty Start Date End Date Tata Singh NP [address] [place] [address] [address] [place] [phone] PCP - General 09/27/08 documented as of this encounter
--- OUTSIDE RECORDS SUMMARY | 2023-11-18 18:54 | XMS_ITS | Encounter Summary ---
Author Organization [facility] Address [address] [place] [address] Care Team Providers Care Disbursement Clerk Name Role Phone Francisco aTta SLOAN Primary Care Provider Encounter Details Date Type Department Care Team (Late st Contact Info) Description 07/14/2001 Results Only [facility] - Maple conversion [address] [place] [address] Christopher Hopkins [address] [place] [address] Social History Tobacco Use Types Packs/Day Years Used Date Smoking Tobacco: Never Assessed Sex and Gender Information Value Date Recorded Sex Assigned at Not on file Gender Identity Not on file Sexual Orientation Not on file documented as of this encounter Plan of Treatment Not on file documented as of this encounter Procedures Procedure Name Priority Date/Time Associated Diagnosis Comments HPV DETECTION, HIGH RISK TYPES Routine 07/14/2001 9:45 EDT CYTOPATHOLOGY Routine 07/14/2001 0:00 EDT documented in this encounter Results * HUMAN PAPILLOMA VIRUS DNA TEST (07/14/2001 9:45 EDT) Specimen Description Cervix, ThinPrep vial [facility] Result Positive for one or more of HPV types 6,11,42,43, or 44. These low riskHPV types are usually associated with benign conditions. [facility] Report Status Final [id number] [facility] 07/14/2001 9:45 EDT 07/21/2001 14:12 EDT Christopher Hopkins CNM MICROBIOLOGY - GENER AL ORDERABLES [facility] [address] [place] [address] * CYTOPATHOLOGY (07/14/2001 0:00 EDT) Pathology Report: CYTOPATHOLOGY REPORT Reports generated via electronic interface contain original data; however they are lacking the format of the original report. Caution should be taken when reading/interpreti ng unformatted reports. Name: ? WINSTON, MANUEL ? Accession #: ? [id number] : ? 1980 (Age: 21) ??F ?Collect Date: ? 07/14/2001 Location: ? [facility] ? Receive Date: ? 07/18/2001 Provider: ?CHRISTOPHER HOPKINS CNM Copy to: ? Specimen/Source: ?ThinPrep Pap Test, Cervix/Endocervix Last Menstrual Period: ? 05/21/01 Menstrual/Pregnanc y Status: ? Previous Gynecologic Pathology: ? FERNIE I: Mild squamous dysplasia Treatment History: ? Colposcopy LEEP Other: ? HPVDX - HPV testing requested regardless of diagnosis on current ThinPrep Pap test. ? SPECIMEN ADEQUACY ? Satisfactory for Evaluation - transformation zone component present - scant squamous epithelial component secondary to excessive blood GENERAL CATEGORIZATION ? Negative for Intraepithelial Lesion or Malignancy ? Document reviewed and electronically signed by: ? NOELLE Boateng(ASCP) ? Report Date: ??07/21/2001 10:26 End of Report [facility] 07/14/2001 07/18/2001 Christopher Hopkins CNM PATHOLOGY ORDERABLES Performing Organization Address City/State/[facility] Co de Phone Number [facility] [address] [place] [address] documented in this encounter Visit Diagnoses Not on filedocumented in this encounter Care Teams Disbursement Clerk Relationship Specialty Start Date End Date Tata Singh NP [address] [place] [address] [address] [place] [address] PCP - General 09/27/08 documented as of this encounter
--- OUTSIDE RECORDS SUMMARY | 2023-11-18 18:54 | XMS_ITS | Encounter Summary ---
Author Organization [facility] Address [address] [place] [address] Care Team Providers Care Guest Services Representative Name Role Phone Dee Mckeon SWATCHER Primary Care Provider [phone] Encounter Details Date Type Department Care Team (Late st Contact Info) Description 05/04/[address] [facility] [phone] Chelsie Allen MD [address] [place] [address] Social History Tobacco Use Types Packs/Day Years Used Date Smoking Tobacco: Never Assessed Sex and Gender Information Value Date Recorded Sex Assigned at Not on file Gender Identity Not on file Sexual Orientation Not on file documented as of this encounter Plan of Treatment Not on file documented as of this encounter Procedures Procedure Name Priority Date/Time Associated Diagnosis Comments PAP TEST- RESULT ONLY Routine 05/04/2011 0:00 EST documented in this encounter Results * PAP TEST- RESULT ONLY (05/04/2011 0:00 EST) Pathology Report: CYTOPATHOLOGY REPORT Reports generated via electronic interface contain original data; however they are lacking the format of the original report. Caution should be taken when reading/interpreti ng unformatted reports. Name: ? MANUEL MONTERO ? Accession #: ? [id number] ? : ? 1980 (Age: 30) ??F ?Collect Date: ? 05/04/2011 ? Location: ? [facility] ? Receive Date: ? 05/05/2011 ? Provider: CHELSIE ALLEN MD Copy to: DEE MCKENO SWATCHER ? Final Report SPECIMEN ADEQUACY ? Satisfactory for Evaluation - transformation zone component present - scant squamous epithelial component secondary to excessive blood GENERAL CATEGORIZATION ? Negative for Intraepithelial Lesion or Malignancy ?? Last Menstural Period: 04/24/11 Specimen/Source: ??Pap Test, Cervix/Endocervix, ThinPrep Imaging System with manual evaluation Document reviewed and electronically signed by: ? RIVKA Puente(ASCP) ? Report ??Date: 05/10/2011 10:16 HPV with Pap Test ? Date Ordered: ? 05/10/2011 ? Status: ?? Signed Out ?Date Complete: ? 05/12/2011 ? By: ??System Interface ? Date Reported: ? 05/12/2011 ? Interpretation RESULT: Negative for HPV types 16, 18, 31, 33, 35, 39, 45, 51, 52, 56, 58, 59, and 68. Comments Document reviewed and electronically signed by: ? System Interface ? Report date: 05/12/2011 By the signature above, the attending physician certifies that he/she has personally conducted a gross and/or microscopic examination of the described specimens and rendered or confirmed the above diagnosis. End of Report [facility] 05/04/2011 05/05/2011 Chelsie Allen MD PATHOLOGY ORDERABLES Performing Organization Address City/State/[facility] Co de Phone Number [facility] [address] [place] [address] documented in this encounter Visit Diagnoses Not on filedocumented in this encounter Care Teams Guest Services Representative Relationship Specialty Start Date End Date Dee Mckeon NP [address] [place] [address] [address] [place] [address] PCP - General 09/27/08 documented as of this encounter
--- OUTSIDE RECORDS SUMMARY | 2023-11-18 18:54 | XMS_ITS | Encounter Summary ---
Author Organization [facility] Address [address] [place] [address] Care Team Providers Care Bone Cooking Operator Name Role Phone Unavailable Primary Care Provider Unavailabl e Encounter Details Date Type Department Care Team (Late st Contact Info) Description 09/25/2008 Orders Only [facility] Medicine [address] [address] Claudia Geiger MD [address] [place], [place] [phone] Social History Tobacco Use Types Packs/Day Years Used Date Smoking Tobacco: Never Assessed Sex and Gender Information Value Date Recorded Sex Assigned at Not on file Gender Identity Not on file Sexual Orientation Not on file documented as of this encounter Plan of Treatment Not on file documented as of this encounter Procedures Procedure Name Priority Date/Time Associated Diagnosis Comments SURGICAL PATHOLOGY Routine 09/25/2008 0:00 EDT documented in this encounter Results * SURGICAL PATHOLOGY (09/25/2008 0:00 EDT) Pathology Report: SURGICAL PATHOLOGY REPORT ? Reports generated via electronic interface contain original data; ? however they are lacking the format of the original report. ? Caution should be taken when reading/interpreti ng unformatted reports. ? Name: ? WINSTON, MANUEL ? Accession #: ? [id number] ? : ? 1980 (Age: 28) ??F ? Collect Date: ? 09/25/2008 ? Location: ? [facility] ? Receive Date: ? 09/26/2008 ? Provider: CLAUDIA WALKO MD ? Copy to: DEE MCKEON HOT BLASTER ? Final Pathologic Diagnosis: ? A. ?Terminal ileum, biopsy: ? 1. ?Ileal mucosa with no pathologic features. ? B. ?Colon, random, biopsies: ? 1. ?Colonic mucosa with no pathologic features. ? C. ?Rectum, random, biopsies: ? 1. ?Rectal mucosa with surface hyperplastic change. ? Document reviewed and electronically signed by: ? ZAIDA MOUNT MD ? Report ??Date: 09/30/2008 15:36 ? By the signature above, the attending physician certifies that he/she has ? personally conducted a gross and/or microscopic examination of the described ? specimens and rendered or confirmed the above diagnosis. ? Specimen(s) Received: ? A. ?Bx terminal ileum (#1) ? B. ? Bx random colon (#2) ? C. ? Random rectal bx (#3) ? Clinical History: ? Rectal bleeding, abdominal pain, diarrhea; (+) saccharomyces cerevisiae IgA and IgG ? Gross Description: ? [facility] labelled Jack Ramosa and biopsy ? terminal ileum are five pink-corral irregular soft tissues ranging from 0.1 x 0.1 x 0.1 cm to 0.3 x 0.2 x 0.2 cm. ??Submitted in toto in (A1) and (A2). ? Received in [facility]'s fixative labelled Winston, Manuel and biopsy random ? colon are eight pink-corral irregular soft tissues ranging from 0.1 x 0.1 x 0.1 cm to 0.2 x 0.2 x 0.2 cm. ??Submitted in toto in (B1) ??(B3). ? Received in [facility]'s fixative labelled Winston, Manuel and biopsy rectum ?? are four pink-corral irregular soft tissues ranging from 0.2 x 0.2 x 0.2 cm to 0.3 x 0.2 x 0.2 cm. ??Submitted in toto in (C1) and (C2). ??(Charleen Quinn)/kmm ? End of Report ? [facility] 09/25/2008 09/26/2008 8:5 1 EDT Claudia Geiger MD PATHOLOGY ORDERABLES [facility] [address] [place] [address] documented in this encounter Visit Diagnoses Not on filedocumented in this encounter
--- OUTSIDE RECORDS SUMMARY | 2023-11-18 18:54 | XMS_ITS | Encounter Summary ---
Author Organization [facility] Address [address] [place] [address] Care Team Providers Care Tire Recapper Name Role Phone Dee Mckeon WARM IN Primary Care Provider [phone] Encounter Details Date Type Department Care Team (Late st Contact Info) Description 06/01/2012 Results Only [facility] [phone] Chelsie Allen MD [address] [place] [address] Social History Tobacco Use Types Packs/Day Years [...] Diagnosis Comments PAP TEST- RESULT ONLY Routine 06/01/2012 0:00 EST documented in this encounter Results * PAP TEST- RESULT ONLY (06/01/2012 0:00 EST) Pathology Report: CYTOPATHOLOGY REPORT Reports generated via electronic interface contain original data; however they are lacking the format of the original report. Caution should be taken when reading/interpreti ng unformatted reports. Name: ? MANUEL MONTERO ? Accession #: ? [id number] ? : ? 1980 (Age: 31) ??F ?Collect Date: ? 06/01/2012 ? Location: ? [facility] ? Receive Date: ? 06/02/2012 ? Provider: CHELSIE ALLEN MD Copy to: DEE MCKEON WARM IN ? Final Report SPECIMEN ADEQUACY ? Satisfactory for Evaluation - transformation zone component present GENERAL CATEGORIZATION ? Negative for Intraepithelial Lesion or Malignancy ?? Previous Gynecologic Pathology: FERNIE I: HPV: + LSIL: , , , 05/05, 04/06 ASC-US: 04/23, 04/07 Treatment History: Colposcopy: , , Miscellaneous treatment: ECC negative LEEP: Other: Additional clinical information: pap 05/04/12 negative with -HPV Specimen/Source: ??Pap Test, Cervix/Endocervix, ThinPrep Imaging System with manual evaluation Document reviewed and electronically signed by: ? Fabby Almodovar, CT(ASCP) ? Report ??Date: 06/07/2012 09:41 HPV with Pap Test ? Date Ordered: ? 06/06/2012 ? Status: ?? Signed Out ?Date Complete: ? 06/09/2012 ? By: ??System Interface ? Date Reported: ? 06/09/2012 ? Interpretation RESULT: Negative for HPV. No E6 or E7 mRNA is detected from HPV types 16,18,31,33,35, 39,45,51,52,56,58, 59,66, and 68 by sap data analyst mediated amplification. Comments Document reviewed and electronically signed by: ? System Interface ? Report date: 06/09/2012 By the signature above, the attending physician certifies that he/she has personally conducted a gross and/or microscopic examination of the described specimens and rendered or confirmed the above diagnosis. End of Report [facility] 06/01/2012 06/02/2012 Chelsie Allen MD PATHOLOGY ORDERABLES Performing Organization Address City/State/[facility] Co de Phone Number [facility] [address] [place] [address] documented in this encounter Visit Diagnoses Not on filedocumented in this encounter Care Teams Tire Recapper Relationship Specialty Start Date End Date Dee Mckeon NP [address] [place] [address] [address] [place] [address] PCP - General 09/27/08 documented as of this encounter
--- OUTSIDE RECORDS SUMMARY | 2023-11-18 18:54 | XMS_ITS | Encounter Summary ---
Author Organization [facility] Address [address] [place] [address] Care Team Providers Care Capability Lead Name Role Phone Francisco Dee DIGITIZER OPERATOR Primary Care Provider [phone] Encounter Details Date Type Department Care Team (Late st Contact Info) Description 08/16/2012 Results Only [facility] [phone] Chelsie Allen MD [address] [place] [address] Social History Tobacco Use Types Packs/Day Years Used Date Smoking Tobacco: Never Assessed Sex and Gender Information Value Date Recorded Sex Assigned at Not on file Gender Identity Not on file Sexual Orientation Not on file documented as of this encounter Plan of Treatment Not on file documented as of this encounter Procedures Procedure Name Priority Date/Time Associated Diagnosis Comments SURGICAL PATHOLOGY Routine 08/16/2012 20 :16 EDT documented in this encounter Results * SURGICAL PATHOLOGY (08/16/2012 20:16 EDT) Pathology Report: SURGICAL PATHOLOGY REPORT Reports generated via electronic interface contain original data; however they are lacking the format of the original report. Caution should be taken when reading/interpreti ng unformatted reports. Name: ? MANUEL MONTERO ? Accession #: ? [id number] ? : ? 1980 (Age: 32) ??F ? Collect Date: ? 08/16/2012 ? Location: ? [facility] ? Receive Date: ? 08/16/2012 ? Provider: CHELSIE ALLEN MD Copy to: DEE MCKEON DIGITIZER OPERATOR ? Final Pathologic Diagnosis: ? Uterus, hysterectomy: 1. ?Cervix: ? - Focal epithelial tubal metaplasia and squamous metaplasia. - Mild acute and chronic cervicitis. ? 2. ?? Endometrium: ?- Endometrial polyp, hyperplastic-type. ?- Proliferative endometrium. 3. ?? 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 4. ?? Serosa: ?- No specific histopathologic diagnosis. ?? Document reviewed and electronically signed by: Vy Sharma MD Report ??Date: 08/18/2012 18:01 By the signature above, the attending physician certifies that he/she has personally conducted a gross and/or microscopic examination of the described specimens and rendered or confirmed the above diagnosis. Specimen(s) Received: ? Uterus Clinical History: ? Uterine prolapse Gross Description: ? Received in formalin labelled Manuel Montero and uterus is a simple hysterectomy which weighs 104 grams and measures 8.6 cm fundus to cervix, 5.0 cm from cornu to cornu, and 3.8 cm anterior to posterior. ??The serosa is corral-pink, smooth and glistening. ??The ectocervix is paredes-white, smooth to wrinkled, focally hyperemic, with a 1.5 cm patent, slit-like os. ??The endocervical canal is grossly unremarkable. ??The endometrium is corral-red and ranges from 0.1 to 0.3 cm in thickness. ??In the region of the lower one-third of the anterior endometrial cavity there is a corral-white 0.8 x 0.7 x 0.3 cm polypoid structure present. ??Further sectioning, the myometrium is corral-pink, slightly trabecular, and ranges from 1.2 to 1.8 cm in thickness. ??There is a paredes-white, 0.5 cm, spherical nodule present on the anterior aspect. ??The adnexa is not present. Garage Attendant sections are submitted as follows: BLOCK OSBORN 1-3 ?Anterior cervix 4-6 ?Posterior cervix 7 ?Anterior polypoid structure, lower one-third of endometrial cavity 8 ? Anterior endomyometrium 9 ? Posterior endomyometrium 10 ? Anterior whorled nodule and small business representative serosa of posterior aspect ? (Alma Gregg)/weston End of Report [facility] 08/16/2012 20:1 6 EDT 08/16/2012 20:16 EDT Chelsie Allen MD PATHOLOGY ORDERABLES Performing Organization Address City/State/[facility] Co de Phone Number [facility] [address] [place] [address] documented in this encounter Visit Diagnoses Not on filedocumented in this encounter Care Teams Capability Lead Relationship Specialty Start Date End Date Dee Mckeon NP [address] [facility] [address] [place] [address] PCP - General 09/27/08 documented as of this encounter
--- OUTSIDE RECORDS SUMMARY | 2023-11-18 18:54 | XMS_ITS | Encounter Summary ---
Author Organization [facility] Address [address] [place] [address] Care Team Providers Care Cryptologic Technician Operator/Analyst Name Role Phone Francisco Tata CHEMICAL PROCESS EQUIPMENT OPERATOR Primary Care Provider [phone] Encounter Details Date Type Department Care Team (Late st Contact Info) Description 04/05/2002 Results Only [facility] - Maple conversion [address] [place] [address] [place] [id number] Social History Tobacco Use Types Packs/Day Years Used Date Smoking Tobacco: Never Assessed Sex and Gender Information Value Date Recorded Sex Assigned at Not on file Gender Identity Not on file Sexual Orientation Not on file documented as of this encounter Plan of Treatment Not on file documented as of this encounter Procedures Procedure Name Priority Date/Time Associated Diagnosis Comments CYTOPATHOLOGY Routine 04/05/2002 0:00 EST documented in this encounter Results * CYTOPATHOLOGY (04/05/2002 0:00 EST) Pathology Report: CYTOPATHOLOGY REPORT Reports generated via electronic interface contain original data; however they are lacking the format of the original report. Caution should be taken when reading/interpreti ng unformatted reports. Name: ? MANUEL MONTERO ? Accession #: ? [id number] : ? 1980 (Age: 21) ??F ?Collect Date: ? 04/05/2002 Location: ? [facility] ? Receive Date: ? 04/09/2002 Provider: ?ANGELINE JIM COULTER Copy to: ? Specimen/Source: ?ThinPrep Pap Test, Cervix/Endocervix Last Menstrual Period: ? 03/26/02 Menstrual/Pregnanc y Status: ? Post Previous Gynecologic Pathology: ? FERNIE I: Mild squamous dysplasia ASC-US LSIL HSIL HPV Treatment History: ? LEEP: Twice Other: ? Additional clinical information: Pap of 07/14/01 Negative ? SPECIMEN ADEQUACY ? Satisfactory for Evaluation - transformation zone component present GENERAL CATEGORIZATION ? Epithelial Cell Abnormality INTERPRETATION ? Squamous Cell Abnormality - Low grade squamous intraepithelial lesion (LSIL). EDUCATIONAL NOTES/RECOMMENDATI ONS ? [facility] recommends following the 2001 Consensus Guidelines for the Management of Women with Cervical Cytological Abnormalities (GARLAND,2002;287:212 0-9). Management algorithms have been distributed by [facility] and are available online at www.ASCCP.org. ? Document reviewed and electronically signed by: ? Doretha Jackson MD ? Report Date: ??04/12/2002 16:58 End of Report [facility] 04/05/2002 04/09/2002 Angeline Jones CNM PATHOLOGY ORDERABLES [facility] [address] [place] [address] documented in this encounter Visit Diagnoses Not on filedocumented in this encounter Care Teams Cryptologic Technician Operator/Analyst Relationship Specialty Start Date End Date Tata Singh NP [address] [place] [address] PCP - General 09/27/08 documented as of this encounter
--- OUTSIDE RECORDS SUMMARY | 2023-11-18 18:54 | XMS_ITS | Encounter Summary ---
Author Organization [facility] Address [address] [place] [address] Care Team Providers Care Thread Dresser Name Role Phone Columbakevin Tata AUDIO VISUAL PROJECT MANAGER Primary Care Provider [phone] Encounter Details Date Type Department Care Team (Late st Contact Info) Description 04/17/2004 Results Only [facility] - Maple conversion [address] [place] [address] Nora Murillo, [facility] [address] [place] [address] [place] [address] Social History Tobacco Use Types [...] Priority Date/Time Associated Diagnosis Comments CYTOPATHOLOGY Routine 04/17/2004 0:00 EST documented in this encounter Results * CYTOPATHOLOGY (04/17/2004 0:00 EST) Pathology Report: CYTOPATHOLOGY REPORT Reports generated via electronic interface contain original data; however they are lacking the format of the original report. Caution should be taken when reading/interpreti ng unformatted reports. Name: ? MANUEL MONTERO ? Accession #: ? [id number] : ? 1980 (Age: 23) ??F ?Collect Date: ? 04/17/2004 Location: ? [facility] ? Receive Date: ? 04/20/2004 Provider: ?NORA MURILLO SUPERVISOR MICROFILM DUPLICATING UNIT Copy to: ? Specimen/Source: ?ThinPrep Pap Test, Cervix/Endocervix Last Menstrual Period: ? 03/23/04 Hormonal/Contracep tive Status: ? Yes: OE Patch Previous Gynecologic Pathology: ? FERNIE I: HPV LSIL: , ,, 05/05, 04/06, 04/07 HSIL: ASC-US: 04/05 Treatment History: ? Colposcopy: Neg ECC. ??Neg Colposcopy: Bx. FERNIE I ECC - Neg LEEP: Excision HSIL Other: ? Additional clinical information: Pap Neg 07/04, , HPVA - HPV testing requested if ASC-US on the current ThinPrep Pap test. ? SPECIMEN ADEQUACY ? Satisfactory for Evaluation - transformation zone component present GENERAL CATEGORIZATION ? Negative for Intraepithelial Lesion or Malignancy INTERPRETATION ? Fungal organisms present morphologically consistent with Noelle species. ? Document reviewed and electronically signed by: ? RIVKA Allison(ASCP) ? Report Date: ??04/23/2004 13:27 End of Report [facility] 04/17/2004 04/20/2004 Nora Murillo SUPERVISOR MICROFILM DUPLICATING UNIT PATHOLOGY ORDERABLES Performing Organization Address City/State/[facility] Co de Phone Number [facility] [address] [place] [address] documented in this encounter Visit Diagnoses Not on filedocumented in this encounter Care Teams Thread Dresser Relationship Specialty Start Date End Date Tata Singh NP [address] [place] [address] [address] [place] [address] PCP - General 09/27/08 documented as of this encounter
--- OUTSIDE RECORDS SUMMARY | 2023-11-18 18:54 | XMS_ITS | Encounter Summary ---
Author Organization [facility] Address [address] [place] [address] Care Team Providers Care Assembler Equipment Name Role Phone Francisco Dee FERMENTER WINE Primary Care Provider [phone] Encounter Details Date Type Department Care Team (Late st Contact Info) Description 10/09/2009 Results Only [facility] [address] [place], [place] [id number] Curtis Collins MD [address] [place] [phone] Social History Tobacco Use Types Packs/Day Years Used Date Smoking Tobacco: Never Assessed Sex and Gender Information Value Date Recorded Sex Assigned at Not on file Gender Identity Not on file Sexual Orientation Not on file documented as of this encounter Plan of Treatment Not on file documented as of this encounter Procedures Procedure Name Priority Date/Time Associated Diagnosis Comments SURGICAL PATHOLOGY Routine 10/09/2009 0:00 EDT documented in this encounter Results * SURGICAL PATHOLOGY (10/09/2009 0:00 EDT) Pathology Report: SURGICAL PATHOLOGY REPORT ? Reports generated via electronic interface contain original data; ? however they are lacking the format of the original report. ? Caution should be taken when reading/interpreti ng unformatted reports. ? Name: ? WINSTON, MANUEL ? Accession #: ? [id number] ? : ? 1980 (Age: 29) ??F ? Collect Date: ? 10/09/2009 ? Location: ? [facility] ? Receive Date: ? 10/10/2009 ? Provider: CURTIS COLLINS MD ? Copy to: DEE MCKEON FERMENTER WINE ? Final Pathologic Diagnosis: ? A. ?Skin of neck, anterior, excisional biopsy: ? 1. ?Melanocytic nevus, compound type, with congenital features. ? - Nevus does not extend to margins of excisional biopsy specimen. ?- Nevus present approximately 0.5 mm from inferior margin. ? B. ?? Skin of foot, right sole, punch biopsy: ?1. ?? Melanocytic nevus, compound type. ?- Nevus extends to peripheral edge of punch biopsy specimen. ? Document reviewed and electronically signed by: ? Chrissie Zarate, MD ? Report ??Date: 10/13/2009 16:07 ? By the signature above, the attending physician certifies that he/she has ? personally conducted a gross and/or microscopic examination of the described ? specimens and rendered or confirmed the above diagnosis. ? Specimen(s) Received: ? A. ?Excisional biopsy anterior neck with suture in superior aspect ? B. ? 3.0 mm punch biopsy sole of R foot ? Clinical History: ? Not listed ? Gross Description: ? Received in formalin labelled Manuel Ramos and excisional biopsy ? anterior neck with suture in superior aspect is an oriented excisional biopsy ?? of skin with a suture designating the superior aspect. ??The specimen measures ?? 1.1 cm right to left, 0.4 cm superior to inferior, and is excised to a depth of 0.4 cm. ??Centrally located is a 0.4 cm in diameter dark brown papule. ??The ? specimen is inked blue in the superior aspect and black on the inferior aspect. The specimen is serially sectioned from right to left and submitted as follows: ? BLOCK OSBORN ? A1 ?Right tip reverse en face ? A2 ?Central sections ? A3 ?Left tip reverse en face ? Received in formalin labelled Manuel Ramos and 3.0 mm punch biopsy sole of right foot is a punch biopsy of skin measuring 0.3 cm in diameter and 0.4 cm in thickness. ??The specimen is submitted intact as (B). (Dr. Crespo)/[facility] ? End of Report ? [facility] 10/09/2009 10/10/2009 16: 26 EDT Curtis Collins MD PATHOLOGY ORDERABLES Performing Organization Address City/State/[facility] Co de Phone Number [facility] [address] [place] [address] documented in this encounter Visit Diagnoses Not on filedocumented in this encounter Care Teams Assembler Equipment Relationship Specialty Start Date End Date Dee Mckeon NP [address] [place] [phone] PCP - General 09/27/08 documented as of this encounter
--- OUTSIDE RECORDS SUMMARY | 2023-11-18 18:54 | XMS_ITS | Encounter Summary ---
Author Organization [facility] Address [address] [place] [address] Care Team Providers Care Machine Plug Shaper Name Role Phone Dee Mckeon HOUSE FURNISHINGS SUPERVISOR Primary Care Provider [phone] Encounter Details Date Type Department Care Team (Late st Contact Info) Description 11/20/2014 Results Only [facility] [phone] Chelsie Allen MD [address] [place] [address] Social History Tobacco Use Types Packs/Day Years [...] Diagnosis Comments PAP TEST- RESULT ONLY Routine 11/20/2014 0:00 EDT documented in this encounter Results * PAP TEST- RESULT ONLY (11/20/2014 0:00 EDT) Pathology Report: CYTOPATHOLOGY REPORT Reports generated via electronic interface contain original data; however they are lacking the format of the original report. Caution should be taken when reading/interpreti ng unformatted reports. Name: ? MANUEL MONTERO ? Accession #: ? [id number] ? : ? 1980 (Age: 34) ??F ?Collect Date: ? 11/20/2014 ? Location: ? [facility] ? Receive Date: ? 11/21/2014 ? Provider: CHELSIE ALLEN MD Copy to: DEE MCKEON HOUSE FURNISHINGS SUPERVISOR ? Final Report SPECIMEN ADEQUACY ? Satisfactory for Evaluation - transformation zone component present GENERAL CATEGORIZATION ? Negative for Intraepithelial Lesion or Malignancy INTERPRETATION ? Reactive cellular changes associated with inflammation present (includes repair). Previous Gynecologic Pathology: Adenocarcinoma: Abn pap hx Treatment History: Hysterectomy: S/p Specimen/Source: ??Pap Test, Cervix/Endocervix, ThinPrep Imaging System with manual evaluation Document reviewed and electronically signed by: ? SENTHIL LUCERO MD PHD ? Report ??Date: 11/27/2014 16:43 HPV with Pap Test ? Date Ordered: ? 11/27/2014 ? Status: ?? Signed Out ?Date Complete: ? 12/02/2014 ? By: ??System Interface ? Date Reported: ? 12/02/2014 ? Interpretation RESULT: Negative for HPV. No E6 or E7 mRNA is detected from HPV types 16,18,31,33,35, 39,45,51,52,56,58, 59,66, and 68 by papier mache molder mediated amplification. Comments Document reviewed and electronically signed by: ? System Interface ? Report date: 12/02/2014 By the signature above, the attending physician certifies that he/she has personally conducted a gross and/or microscopic examination of the described specimens and rendered or confirmed the above diagnosis. End of Report [facility] 11/20/2014 11/21/2014 Chelsie Allen MD PATHOLOGY ORDERABLES [facility] [address] [place] [address] documented in this encounter Visit Diagnoses Not on filedocumented in this encounter Care Teams Machine Plug Shaper Relationship Specialty Start Date End Date Dee Mckeon NP [address] [place] [address] [address] [place] [address] PCP - General 09/27/08 documented as of this encounter
--- OUTSIDE RECORDS SUMMARY | 2023-11-18 18:54 | XMS_ITS | Referral Summary ---
Author Organization [facility] Address [address] [place] [address] Care Team Providers Care Handtools Repairer Name Role Phone Tata Singh NP Primary Care Provider Social History Tobacco Use Types Packs/Day Years Used Date Smoking Tobacco: Never Assessed Sex and Gender Information Value Date Recorded Sex Assigned at Not on file Gender Identity Not on file Sexual Orientation Not on file Plan of Treatment Not on file Procedures Procedure Name Priority Date/Time Associated Diagnosis Comments HEPATITIS C AB W REFLEX TO HCV RNA BY PCR Routine 12/27/2022 12:45 EDT from Last 3 Months or Most Recently Relevant to Health Maintenance Results * HEPATITIS C AB W REFLEX TO HCV RNA BY PCR (12/27/2022 12:45 EDT) Hep C Antibody Negative Negative 12/28/2022 9:55 EDT [facility] Blood VENOUS BLOOD / Unknown 12/27/2022 12:45 EDT 12/27/2022 21:23 EDT Provider Outr Resulting Lab CHEMISTRY & BLOOD GAS ORDERABLES [facility] [address] [place] [address] from Last 3 Months or Most Recently Relevant to Health Maintenance Care Teams Handtools Repairer Relationship Specialty Start Date End Date Tata Singh NP [address] [place] [phone] PCP - General 09/27/08
--- OUTSIDE RECORDS SUMMARY | 2023-11-18 18:54 | XMS_ITS | Encounter Summary ---
Author Organization [facility] Address [address] [place] [address] Care Team Providers Care Senior Laboratory Technician Name Role Phone Tata Singh NP Primary Care Provider [phone] Encounter Details Date Type Department Care Team (Late st Contact Info) Description 04/15/2003 Results Only [facility] - Maple conversion [address] [place] [address] Pearl Edge NP Social History Tobacco Use Types Packs/Day Years [...] Comments HPV DETECTION, HIGH RISK TYPES Routine 04/15/2003 14:20 EST CYTOPATHOLOGY Routine 04/15/2003 0:00 EST documented in this encounter Results * HUMAN PAPILLOMA VIRUS DNA TEST (04/15/2003 14:20 EST) Specimen Description Cervix, ThinPrep vial [facility] Result Negative for HPV types 16, 18, 31, 33, 35, 39, 45, 51, 52, 56, 58, 59, and 68. [facility] Report Status Final [id number] [facility] 04/15/2003 14:2 0 EST 04/25/2003 10:24 EST Pearl Edge NP MICROBIOLOGY - GENER AL ORDERABLES [facility] [address] [place] [address] * CYTOPATHOLOGY (04/15/2003 0:00 EST) Pathology Report: CYTOPATHOLOGY REPORT Reports generated via electronic interface contain original data; however they are lacking the format of the original report. Caution should be taken when reading/interpreti ng unformatted reports. Name: ? WINSTON MANUEL ? Accession #: ? [id number] : ? 1980 (Age: 22) ??F ?Collect Date: ? 04/15/2003 Location: ? [facility] ? Receive Date: ? 04/17/2003 Provider: ?PEARL EDGE CREDIT RISK OFFICER Copy to: ? Specimen/Source: ?ThinPrep Pap Test, Cervix/Endocervix Last Menstrual Period: ? 04/06/03 Hormonal/Contracep tive Status: ? Yes: OrthoEvra Other: ? HPVDX - HPV testing requested regardless of diagnosis on current ThinPrep Pap test. ? SPECIMEN ADEQUACY ? Satisfactory for Evaluation - transformation zone component present - scant squamous epithelial component secondary to excessive blood GENERAL CATEGORIZATION ? Epithelial Cell Abnormality INTERPRETATION ? Squamous Cell Abnormality - Atypical squamous cells, undetermined significance. EDUCATIONAL NOTES/RECOMMENDATI ONS ? [facility] recommends following the 2001 Consensus Guidelines for the Management of Women with Cervical Cytological Abnormalities (GARLAND,2002;287:212 0-9). Management algorithms have been distributed by [facility] and are available online at www.ASCCP.org. ? Document reviewed and electronically signed by: ? Ashley English MD ? Report Date: ??04/24/2003 13:41 End of Report [facility] 04/15/2003 04/17/2003 Pearl Edge NP PATHOLOGY ORDERABLES Performing Organization Address City/State/[facility] Co de Phone Number [facility] [address] [place] [address] documented in this encounter Visit Diagnoses Not on filedocumented in this encounter Care Teams Senior Laboratory Technician Relationship Specialty Start Date End Date Tata Singh NP [address] [place] [address] [address] [place] [address] PCP - General 09/27/08 documented as of this encounter
--- OUTSIDE RECORDS SUMMARY | 2023-11-18 18:54 | XMS_ITS | Encounter Summary ---
Author Organization [facility] Address [address] [place] [address] Care Team Providers Care Pediatric Ophthalmologist Name Role Phone Tata Singh NP Primary Care Provider [phone] Encounter Details Date Type Department Care Team (Late st Contact Info) Description 10/25/2007 Before PRISM Converted Visit (Maple) [facility] - Maple conversion [address] [place] [address] Pearl Edge NP Social History Tobacco Use [...] Comments HPV DETECTION, HIGH RISK TYPES Routine 10/25/2007 13:40 EDT CYTOPATHOLOGY Routine 10/25/2007 0:00 EDT documented in this encounter Results * HUMAN PAPILLOMA VIRUS DNA TEST (10/25/2007 13:40 EDT) Specimen Description Cervix, ThinPrep vial [facility] Result Negative for HPV types 16, 18, 31, 33, 35, 39, 45, 51, 52, 56, 58, 59, and 68. [facility] Report Status Final [id number] [facility] 10/25/2007 13:4 0 EDT 11/01/2007 11:38 EDT Pearl Edge NP MICROBIOLOGY - GENER AL ORDERABLES [facility] [address] [place] [address] * CYTOPATHOLOGY (10/25/2007 0:00 EDT) Pathology Report: CYTOPATHOLOGY REPORT ? Reports generated via electronic interface contain original data; ? however they are lacking the format of the original report. ? Caution should be taken when reading/interpreti ng unformatted reports. ? Name: ? MANUEL MONTERO ? Accession #: ? [id number] ? : ? 1980 (Age: 27) ??F ?Collect Date: ? 10/25/2007 ? Location: ? [facility] ? Receive Date: ? 10/26/2007 ? Provider: ?PEARL M MEY MAKE READY WORKER ? Copy to: ? Specimen/Source: ?ThinPrep Pap Test, Cervix/Endocervix, processed on [facility] [place] ThinPrep Imaging System, with manual evaluation ? Last Menstrual Period: ? 07/03/08 ? Previous Gynecologic Pathology: ? FERNIE I: 03/96 ? HPV: 03/96 & 04/02 ? LSIL: /, /, /, /, /03 & /04 ? HSIL: 11/ ? ASC-US: 04/05 & /04 ? Treatment History: ? Colposcopy: neg 05/96 ? Colposcopy: 07/99, 02/00 ? Miscellaneous treatment: ECC negative 05/96 ? LEEP: exc. 02/99 ? Other: ? Additional clinical information: FHx mother cervical cancer. , , ? 04/02, 05, 06 & 07 paps neg. Negative HPV 04/07. ? HPVDX - HPV testing requested regardless of diagnosis on current ThinPrep Pap ?? test. ? SPECIMEN ADEQUACY ? Satisfactory for Evaluation ? - transformation zone component present ? GENERAL CATEGORIZATION ? Negative for Intraepithelial Lesion or Malignancy ? Document reviewed and electronically signed by: ? Doretha Paula, CT(ASCP) ? Report Date: ??10/31/2007 14:53 ? End of Report ? [facility] 10/25/2007 10/26/2007 Pearl Edge NP PATHOLOGY ORDERABLES Performing Organization Address City/State/[facility] Co de Phone Number [facility] [address] [place] [address] documented in this encounter Visit Diagnoses Not on filedocumented in this encounter Care Teams Pediatric Ophthalmologist Relationship Specialty Start Date End Date Tata Singh NP [address] [place] [address] PCP - General 09/27/08 documented as of this encounter
== END 2023-11-18 18:49 | disposition home or self-care (01) ==
LOC: NCHCN 18:48
PROVIDERS: PCP Student in an Organized Health Care Education/Training Program; Visit Provider Student in an Organized Health Care Education/Training Program
DX: E11.9 Type 2 diabetes mellitus without complications (principal)
CPT/HCPCS: 82043; 82570

== ENCOUNTER 2024-03-29 11:55 | Outpatient (REF) | payer BC, SELFPAY ==
--- OUTSIDE RECORDS SUMMARY | 2024-03-29 11:56 | XMS_ITS | Encounter Summary ---
Author Organization [facility] Address [address] [place] [address] Care Team Providers Care Auto Apprentice Mechanic Name Role Phone Unavailable Primary Care Provider Unavailabl e Encounter Details Date Type Department Care Team (Late st Contact Info) Description 09/25/2008 Orders Only [address] [address] Claudia Geiger MD [address] [place] [address] Social History Tobacco Use Types Packs/Day Years Used Date Smoking Tobacco: Never Assessed Comments Unknown Sex and Gender Information Value Date Recorded Sex Assigned at Not on file Legal Sex Female 18:29 EST Gender Identity Not on file Sexual Orientation [...] ? WINSTON, MANUEL ? Accession #: ? [id number] ? : ? 1980 (Age: 28) ??F ? Collect Date: ? 09/25/2008 ? Location: ? [facility] ? Receive Date: ? 09/26/2008 ? Provider: CLAUDIA MCALLISTERO MD ? Copy to: DEE MCKEON SYSTEM OPERATION SUPERINTENDENT ? Final Pathologic Diagnosis: ? A. ?Terminal [...] IgG ? Gross Description: ? Received in Lisa's fixative labelled Winston, Manuel and biopsy ? terminal ileum are five pink-corral irregular soft tissues ranging from 0.1 x 0.1 x 0.1 cm to 0.3 x 0.2 x 0.2 cm. ??Submitted in toto in (A1) and (A2). ? Received in Lisa's fixative labelled Winston, Manuel and biopsy random [...] in toto in (C1) and (C2). ??(Charleen Quinn)/carlosm ? End of Report ? [facility] 09/25/2008 09/26/2008 8:5 1 EDT us Claudia Geiger MD PATHOLOGY ORDERABLES Final Resul t [facility] [address] [place] [address] documented in this encounter Visit Diagnoses Not on filedocumented in this encounter
--- OUTSIDE RECORDS SUMMARY | 2024-03-29 11:56 | XMS_ITS | Encounter Summary ---
Author Organization [facility] Address [address] [place] [address] Care Team Providers Care Byproducts Operator Name Role Phone Francisco Tata SLOAN Primary Care Provider Encounter Details Date Type Department Care Team (Late st Contact Info) Description 04/05/2002 Results Only [facility] conversion [address] [place] [address] [place] [id number] Social History Tobacco Use Types Packs/Day Years [...] ? Receive Date: ? 04/09/2002 Provider: ?ANGELINE FERNANDEZ CNM Copy to: ? [...] intraepithelial lesion (LSIL). EDUCATIONAL NOTES/RECOMMENDATI ONS ? [facility] recommends following the 2001 Consensus Guidelines for the Management of Women with Cervical Cytological Abnormalities (GARLAND,2002;287:212 0-9). Management algorithms have been distributed by [facility] and are available online at www.ASCCP.org. ? Document reviewed and electronically signed by: ? Doretha Jackson MD ? Report Date: ??04/12/2002 16:58 End of Report [facility] 04/05/2002 04/09/2002 Angeline Fernandez CNM PATHOLOGY ORDERABLES Final Res ult [facility] [address] [place] [address] documented in this encounter Visit Diagnoses Not on filedocumented in this encounter Care Teams Byproducts Operator Relationship Specialty Start Date End Date Tata Singh NP [address] [place] [address] [address] [place] [address] PCP - General 09/27/08 documented as of this encounter
--- OUTSIDE RECORDS SUMMARY | 2024-03-29 11:56 | XMS_ITS | Encounter Summary ---
Author Organization [facility] Address [address] [place] [address] Care Team Providers Care Program Manager Name Role Phone Francisco Tata SLOAN Primary Care Provider Encounter Details Date Type Department Care Team (Late st Contact Info) Description 07/14/2001 Results Only [facility] - Maple conversion [address] [place] [address] [address] [place] [address] Social History Tobacco Use Types [...] conditions. [facility] Report Status Final [id number] [facility] 07/14/2001 9:45 EDT 07/21/2001 14:12 EDT Christopher Hopkins CNM MICROBIOLOGY - GENERAL ORDERABLE S Final Result [facility] [address] [place] [address] * CYTOPATHOLOGY (07/14/2001 0:00 EDT) Pathology Report: CYTOPATHOLOGY REPORT Reports generated via electronic interface contain original data; however they are lacking the format of the original report. Caution should be taken when reading/interpreti ng unformatted reports. Name: ? MANUEL MONTERO ? Accession #: ? [id number] : ? 1980 (Age: 21) ??F ?Collect [...] of Report [facility] 07/14/2001 07/18/2001 us Christopher Hopkins CNM PATHOLOGY ORDERABLES Final Resul t Performing Organization Address City/State/[facility] Co de Phone Number [facility] [address] [place] [address] documented in this encounter Visit Diagnoses Not on filedocumented in this encounter Care Teams Program Manager Relationship Specialty Start Date End Date Tata Singh NP [address] [place] [address] [address] [place] [address] PCP - General 09/27/08 documented as of this encounter
--- OUTSIDE RECORDS SUMMARY | 2024-03-29 11:56 | XMS_ITS | Encounter Summary ---
Author Organization [facility] Address [address] [place] [address] Care Team Providers Care Wax Pattern Repairer Name Role Phone Columbakevin Tata SLOAN Primary Care Provider [phone] Encounter Details Date Type Department Care Team (Late st Contact Info) Description 04/17/2004 Results Only [facility] - Maple conversion [address] [place] [address] Nora Murillo, [facility] [address] [place] [address] [place] [address] Social History Tobacco Use Types [...] ? MANUEL MONTERO ? Accession #: ? [id number] : ? 1980 (Age: 23) ??F ?Collect Date: ? 04/17/2004 Location: ? [facility] ? Receive Date: ? 04/20/2004 Provider: ?NORA MURILLO ORNAMENT STAPLER Copy to: ? Specimen/Source: ?ThinPrep Pap Test, [...] and electronically signed by: ? Fabby Almodovar, RIVKA(ASCP) ? Report Date: ??04/23/2004 13:27 End of Report [facility] 04/17/2004 04/20/2004 us Nora Murillo ORNAMENT STAPLER PATHOLOGY ORDERABLES Final R esult [facility] [address] [place] [address] documented in this encounter Visit Diagnoses Not on filedocumented in this encounter Care Teams Wax Pattern Repairer Relationship Specialty Start Date End Date Tata Singh NP [address] [place] [address] [address] [place] [phone] PCP - General 09/27/08 documented as of this encounter
--- OUTSIDE RECORDS SUMMARY | 2024-03-29 11:56 | XMS_ITS | Clinical Summary ---
Author Organization [facility] Address [address] [place] [address] Care Team Providers Care Sap Architect Name Role Phone Tata Singh NP Primary [...] 3-dose series) 07/09 COVID-19 Vaccine ( season) 2023 Hepatitis C Screen Completed 12/27/2022 Procedures Procedure Name Priority Date/Time Associated Diagnosis Comments HEPATITIS C AB W REFLEX TO HCV RNA BY PCR Routine 12/27/2022 12:45 EDT from Last 3 Months or Most Recently Relevant to Health Maintenance Results * HEPATITIS C AB W REFLEX TO HCV RNA BY PCR (12/27/2022 12:45 EDT) Hep C Antibody Negative Negative 12/28/2022 9:55 EDT [facility] Blood VENOUS BLOOD / Unknown 12/27/2022 12:45 EDT 12/27/2022 21:23 EDT us Provider Outr Resulting Lab CHEMISTRY & BLOOD GA S ORDERABLES Final Result [facility] [address] [place] [address] from Last 3 Months or Most Recently Relevant to Health Maintenance Care Teams Sap Architect Relationship Specialty Start Date End Date Tata Singh NP [address] [place] [address] [address] [place] [phone] PCP - General 09/27/08
--- OUTSIDE RECORDS SUMMARY | 2024-03-29 11:56 | XMS_ITS | Encounter Summary ---
Author Organization [facility] Address [address] [place] [address] Care Team Providers Care Grinder Lap Name Role Phone Francisco Tata SLOAN Primary Care Provider Encounter Details Date Type Department Care Team (Late st Contact Info) Description 10/09/2009 Results Only [facility] Laboratory Services - [facility] [address] [place] [address] Curtis Collins MD [address] [place] [address] Social History Tobacco Use Types Packs/Day Years [...] ? WINSTON, MANUEL ? Accession #: ? [id number] ? : ? 1980 (Age: 29) ??F ? Collect Date: ? 10/09/2009 ? Location: ? [facility] ? Receive Date: ? 10/10/2009 ? Provider: CURTIS COLLINS MD ? Copy to: PRICE BRODZINSKI LEGUILLON DEBEADER ? Final Pathologic Diagnosis: ? A. ?Skin [...] reviewed and electronically signed by: ? Chrissie Kelly. Elliot, MD ? Report ??Date: 10/13/2009 16:07 ? [...] specimen is submitted intact as (B). (Dr. Crespo)/[facility] ? End of Report ? [facility] 10/09/2009 10/10/2009 16: 26 EDT us Curtis Collins MD PATHOLOGY ORDERABLES Final Resul t [facility] [address] [place] [address] documented in this encounter Visit Diagnoses Not on filedocumented in this encounter Care Teams Grinder Lap Relationship Specialty Start Date End Date Tata Singh NP [address] [place] [phone] PCP - General 09/27/08 documented as of this encounter
--- OUTSIDE RECORDS SUMMARY | 2024-03-29 11:56 | XMS_ITS | Encounter Summary ---
Author Organization [facility] Address [address] [place] [address] Care Team Providers Care Medical Review Specialist Name Role Phone Francisco Dee CADD TECHNICIAN Primary Care Provider [phone] Encounter Details Date Type Department Care Team (Late st Contact Info) Description 06/01/2012 Results Only [facility] [phone] Chelsie Allen MD [address] [place] [address] Social History Tobacco Use Types Packs/Day Years [...] ? MANUEL MONTERO ? Accession #: ? [id number] ? : ? 1980 (Age: 31) ??F ?Collect Date: ? 06/01/2012 ? Location: ? [facility] ? Receive Date: ? 06/02/2012 ? Provider: CHELSIE ALLEN MD Copy to: DEE MCKEON CADD TECHNICIAN ? Final Report SPECIMEN ADEQUACY ? Satisfactory [...] types 16,18,31,33,35, 39,45,51,52,56,58, 59,66, and 68 by service unit operator mediated amplification. Comments Document reviewed and electronically signed by: ? System Interface ? Report date: 06/09/2012 By the signature above, the attending physician certifies that he/she has personally conducted a gross and/or microscopic examination of the described specimens and rendered or confirmed the above diagnosis. End of Report [facility] 06/01/2012 06/02/2012 us Chelsie Allen MD PATHOLOGY ORDERABLES Final Resu lt Performing Organization Address City/State/[facility] Co de Phone Number [facility] [address] [place] [address] documented in this encounter Visit Diagnoses Not on filedocumented in this encounter Care Teams Medical Review Specialist Relationship Specialty Start Date End Date Dee Mckeon NP [address] [place] [address] [address] [place] [address] PCP - General 09/27/08 documented as of this encounter
--- OUTSIDE RECORDS SUMMARY | 2024-03-29 11:56 | XMS_ITS | Referral Summary ---
Author Organization [facility] Address [address] [place] [address] Care Team Providers Care Oncology Nurse Name Role Phone Tata Singh CARPENTRY INSTRUCTOR Primary Care Provider [phone] Social History Tobacco Use Types Packs/Day Years [...] C Antibody Negative Negative 12/28/2022 9:55 EDT [facility] Blood VENOUS BLOOD / Unknown 12/27/2022 12:45 EDT 12/27/2022 21:23 EDT us Provider Outr Resulting Lab CHEMISTRY & BLOOD GA S ORDERABLES Final Result [facility] [address] [place] [address] from Last 3 Months or Most Recently Relevant to Health Maintenance Care Teams Oncology Nurse Relationship Specialty Start Date End Date Tata Singh NP [address] [place] [address] (work) [facility] - General 09/27/08
--- OUTSIDE RECORDS SUMMARY | 2024-03-29 11:56 | XMS_ITS | Encounter Summary ---
Author Organization [facility] Address [address] [place] [address] Care Team Providers Care Weight Count Operator Name Role Phone Tata Singh NP Primary Care Provider Encounter Details Date Type Department Care Team (Late st Contact Info) Description 08/07/2020 Lab Requisition [facility] Pathology & Laboratory Medicine - [facility] [address] [place] [address] Outr Resulting Lab, Provider Social History Tobacco [...] 275 - 295 mOsm/kg 08/07/2020 16:[address] [facility] Blood VENOUS BLOOD / Unknown 08/06/2020 19:30 EDT 08/07/2020 15:59 EDT us Provider Outr Resulting Lab CHEMISTRY & BLOOD GA S ORDERABLES Final Result [facility] [address] [place] [address] documented in this encounter Visit Diagnoses Not on filedocumented in this encounter Care Teams Weight Count Operator Relationship Specialty Start Date End Date Tata Singh NP [address] [place] [address] [address] [place] [address] PCP - General 09/27/08 documented as of this encounter
--- OUTSIDE RECORDS SUMMARY | 2024-03-29 11:56 | XMS_ITS | Encounter Summary ---
Author Organization [facility] Address [address] [place] [address] Care Team Providers Care Pattern Illustrator Name Role Phone Francisco Dee SLOAN Primary Care Provider [phone] Encounter Details Date Type Department Care Team (Late st Contact Info) Description 11/20/2014 Results Only [facility] [phone] Chelsie Allen MD [address] [place] [address] Social History Tobacco Use Types Packs/Day Years [...] ? MANUEL MONTERO ? Accession #: ? [id number] ? : ? 1980 (Age: 34) ??F ?Collect Date: ? 11/20/2014 ? Location: ? [facility] ? Receive Date: ? 11/21/2014 ? Provider: CHELSIE ALLEN MD Copy to: DEE MCKEON SPRING MACHINE OPERATOR ? Final Report SPECIMEN ADEQUACY ? Satisfactory [...] types 16,18,31,33,35, 39,45,51,52,56,58, 59,66, and 68 by freight car repairer mediated amplification. Comments Document reviewed and electronically signed by: ? System Interface ? Report date: 12/02/2014 By the signature above, the attending physician certifies that he/she has personally conducted a gross and/or microscopic examination of the described specimens and rendered or confirmed the above diagnosis. End of Report [facility] 11/20/2014 11/21/2014 us Chelsie Allen MD PATHOLOGY ORDERABLES Final Resu lt [facility] [address] [place] [address] documented in this encounter Visit Diagnoses Not on filedocumented in this encounter Care Teams Pattern Illustrator Relationship Specialty Start Date End Date Dee Mckeon NP [address] [place] [address] [address] [place] [phone] PCP - General 09/27/08 documented as of this encounter
--- OUTSIDE RECORDS SUMMARY | 2024-03-29 11:56 | XMS_ITS | Encounter Summary ---
Author Organization [facility] Address [facility] [place] [address] Care Team Providers Care Hearing Healthcare Practitioner Name Role Phone Francisco Tata Wasserman APRN Primary Care Provider + Encounter Details Date Type Department Care Team (Late st Contact Info) Description 02/24/2009 Orders Only [place] [address] Bautista Tierney MD [facility] [place] [address] Social History Tobacco Use Types Packs/Day Years [...] 3:10 PM EST) Surgical Pathology Report [id number] ? Location: 4T The signing pathologist has [...] MD PATHOLOGY/CYTOLOGY O RDERABLES Performing Organization Address City/State/[facility] Co de Phone Number [facility] documented in this encounter Visit Diagnoses Not on filedocumented in this encounter Care Teams Hearing Healthcare Practitioner Relationship Specialty Start Date End Date Tata Singh, GAS LINE INSTALLER PCP - General 02/24/10 documented as of this encounter
--- OUTSIDE RECORDS SUMMARY | 2024-03-29 11:56 | XMS_ITS | Encounter Summary ---
Author Organization [facility] Address [address] [place] [address] Care Team Providers Care Directional Survey Drafter Name Role Phone Tata Singh NP Primary Care Provider Encounter Details Date Type Department Care Team (Late st Contact Info) Description 12/27/2022 Lab Requisition [facility] Pathology & Laboratory Medicine - [facility] [address] [place] [address] Outr Resulting Lab, Provider Social History Tobacco [...] <3.1 See Note mIU/mL 12/28/2022 9:06 EDT [facility] Comment: Reference Range for Hep B Surface Ab, Quant: Positive: >= 10.0 mIU/mL Negative: ??< 10.0 mIU/mL Patient is presumed to not be immune to infection with Hepatitis B Virus. Hep B Surface Ab, Qualitative Negative See Note 12/28/2022 9:06 EDT [facility] Comment: Reference Range for Hep B Surface Ab, Qual: Unvaccinated: ??Negative Vaccinated: ??Positive Blood VENOUS BLOOD / Unknown 12/27/2022 12:45 EDT 12/27/2022 21:23 EDT us Provider Outr Resulting Lab CHEMISTRY & BLOOD GA S ORDERABLES Final Result Performing Organization Address City/[facility]/ZIP Co de Phone Number [facility] [address] [place] [address] * HEPATITIS B CORE ANTIBODY (TOTAL) (12/27/2022 12:45 EDT) Hepatitis B Core Ab, Total Negative Negative 12/28/2022 10:18 EDT [facility] Blood VENOUS BLOOD / Unknown 12/27/2022 12:45 EDT 12/27/2022 21:23 EDT us Provider Outr Resulting Lab CHEMISTRY & BLOOD GA S ORDERABLES Final Result Performing Organization Address [facility]/ZIP Co de Phone Number [facility] [address] [place] [address] * HEPATITIS B SURFACE ANTIGEN (12/27/2022 12:45 EDT) Hep B Surface Ag Negative Negative 12/28/2022 9:16 EDT [facility] Blood VENOUS BLOOD / Unknown 12/27/2022 12:45 EDT 12/27/2022 21:23 EDT us Provider Outr Resulting Lab CHEMISTRY & BLOOD GA S ORDERABLES Final Result Performing Organization Address City/[facility]/ZIP Co de Phone Number [facility] [address] [place] [address] * HEPATITIS C AB W REFLEX TO HCV RNA BY PCR (12/27/2022 12:45 EDT) Hep C Antibody Negative Negative 12/28/2022 9:55 EDT [facility] Blood VENOUS BLOOD / Unknown 12/27/2022 12:45 EDT 12/27/2022 21:23 EDT us Provider Outr Resulting Lab CHEMISTRY & BLOOD GA S ORDERABLES Final Result [facility] [address] [place] [address] documented in this encounter Visit Diagnoses Not on filedocumented in this encounter Care Teams Directional Survey Drafter Relationship Specialty Start Date End Date Tata Singh NP [address] [place] [address] [address] [place] [address] PCP - General 09/27/08 documented as of this encounter
--- OUTSIDE RECORDS SUMMARY | 2024-03-29 11:56 | XMS_ITS | Encounter Summary ---
Author Organization [facility] Address [address] [place] [address] Care Team Providers Care Cinder Dump Crane Operator Name Role Phone Francisco Dee FOUNTAIN VENDING MECHANIC Primary Care Provider [phone] Encounter Details Date Type Department Care Team (Late st Contact Info) Description 08/16/2012 Results Only [facility] [phone] Chelsie Allen MD [address] [place] [address] Social History Tobacco Use Types Packs/Day Years [...] ? MANUEL MONTERO ? Accession #: ? [id number] ? : ? 1980 (Age: 32) ??F ? Collect Date: ? 08/16/2012 ? Location: ? [facility] ? Receive Date: ? 08/16/2012 ? Provider: CHELSIE ALLEN MD Copy to: DEE MCKEON FOUNTAIN VENDING MECHANIC ? Final Pathologic Diagnosis: ? Uterus, hysterectomy: [...] anterior aspect. ??The adnexa is not present. Fire Services Plumber sections are submitted as follows: BLOCK OSBORN 1-3 ?Anterior cervix 4-6 ?Posterior cervix 7 ?Anterior polypoid structure, lower one-third of endometrial cavity 8 ? Anterior endomyometrium 9 ? Posterior endomyometrium 10 ? Anterior whorled nodule and healthcare representative serosa of posterior aspect ? (Alma Gregg)/[facility] End of Report [facility] 08/16/2012 20:1 6 EDT 08/16/2012 20:16 EDT us Chelsie Allen MD PATHOLOGY ORDERABLES Final Resu lt [facility] [address] [place] [address] documented in this encounter Visit Diagnoses Not on filedocumented in this encounter Care Teams Cinder Dump Crane Operator Relationship Specialty Start Date End Date Dee Mckeon NP [address] [place] [address] [address] [place] [address] PCP - General 09/27/08 documented as of this encounter
--- OUTSIDE RECORDS SUMMARY | 2024-03-29 11:56 | XMS_ITS | Encounter Summary ---
Author Organization [facility] Address [address] [place] [address] Care Team Providers Care Map Editor Name Role Phone Miramelanie Dee COUNTER WAITRESS/WAITER Primary Care Provider [phone] Encounter Details Date Type Department Care Team (Late st Contact Info) Description 05/04/2011 Results Only [facility] [phone] Chelsie Allen MD [address] [place] [address] Social History Tobacco Use Types Packs/Day Years [...] ? MANUEL MONTERO ? Accession #: ? [id number] ? : ? 1980 (Age: 30) ??F ?Collect Date: ? 05/04/2011 ? Location: ? [facility] ? Receive Date: ? 05/05/2011 ? Provider: CHELSIE ALLEN MD Copy to: DEE MCKEON COUNTER WAITRESS/WAITER ? Final Report SPECIMEN ADEQUACY ? Satisfactory [...] the above diagnosis. End of Report [facility] 05/04/2011 05/05/2011 us Chelsie Allen MD PATHOLOGY ORDERABLES Final Resu lt [facility] [address] [place] [address] documented in this encounter Visit Diagnoses Not on filedocumented in this encounter Care Teams Map Editor Relationship Specialty Start Date End Date Dee Mckeon NP [address] [place] [address] [address] [place] [address] PCP - General 09/27/08 documented as of this encounter
--- OUTSIDE RECORDS SUMMARY | 2024-03-29 11:56 | XMS_ITS | Clinical Summary ---
Author Organization [facility] Address [facility] [place] [address] Care Team Providers Care Therapeutic Activities Services Worker Name Role Phone Tata Singh APRN Primary [...] Active Immunizations Name Administration Dates Next Due Covid-19 Monovalent (Moderna Spikevax) 12yrs+ ([id number]) 03/26/2021,07/22/2020,06/24/2020 Influenza PF, Split 02/04/2014 Influenza Quadrivalent, Preservative Free 2016 Influenza Trivalent w/Preservative 01/14/2016 Social History Tobacco Use Types Packs/Day Years [...] Hepatitis B vaccine (0-59 yrs) (1) 1997 Tetanus/Diphtheria/Pertussis Vaccines (1 - Tdap) 1997 HPV test 2008 PAP Smear 2008 Breast Cancer Share Decision Needed 2018 Breast Cancer screening 2018 Covid-19 Vaccine ( season) 2023 03/26/2021, 07/22/2020, 06/24/2020 Influenza (Flu) vaccine (1 o f 1 - Influenza standard series) 12/04/2023 02/01/2017, 01/14/2016, 02/04/2014 Care Teams Therapeutic Activities Services Worker Relationship Specialty Start Date End Date Tata Singh, PATRICK PCP - General 02/24/10
--- OUTSIDE RECORDS SUMMARY | 2024-03-29 11:56 | XMS_ITS | Encounter Summary ---
Author Organization [facility] Address [address] [place] [address] Care Team Providers Care Order Editor Name Role Phone Tata Singh GLUE SPECIALTY SUPERVISOR Primary Care Provider Encounter Details Date Type Department Care Team (Late st Contact Info) Description 10/25/2007 Before PRISM Converted Visit (Maple) [facility] - [facility] conversion [address] [place] [address] Pearl Edge NP Social History Tobacco Use [...] 68. [facility] Report Status Final [id number] [facility] 10/25/2007 13:4 0 EDT 11/01/2007 11:38 EDT us Pearl M Minesh GLUE SPECIALTY SUPERVISOR MICROBIOLOGY - GENERAL ORDERA BLES Final Result [facility] [address] [place] [address] * CYTOPATHOLOGY (10/25/2007 0:00 EDT) Pathology Report: CYTOPATHOLOGY REPORT ? Reports generated via electronic interface contain original data; ? however they are lacking the format of the original report. ? Caution should be taken when reading/interpreti ng unformatted reports. ? Name: ? MANUEL MONTERO ? Accession #: ? [id number] ? : ? 1980 (Age: 27) ??F ?Collect Date: ? 10/25/2007 ? Location: ? [facility] ? Receive Date: ? 10/26/2007 ? Provider: ?PEARL M MINESH GLUE SPECIALTY SUPERVISOR ? Copy to: ? Specimen/Source: ?ThinPrep Pap Test, Cervix/Endocervix, processed on [employer] ThinPrep Imaging System, with manual evaluation ? Last Menstrual Period: ? 07/03/08 ? Previous Gynecologic Pathology: ? FERNIE I: 03/96 ? HPV: 03/96 & 04/02 ? LSIL: , , 08/, /, /03 & /04 ? HSIL: 11 ? ASC-US: / & / ? Treatment History: ? Colposcopy: neg 05/96 [...] reviewed and electronically signed by: ? Doretha [place], [place](ASCP) ? Report Date: ??10/31/2007 14:53 ? End of Report ? [facility] 10/25/2007 10/26/2007 us Pearl Edge GLUE SPECIALTY SUPERVISOR PATHOLOGY ORDERABLES Final Re sult [facility] [address] [place] [address] documented in this encounter Visit Diagnoses Not on filedocumented in this encounter Care Teams Order Editor Relationship Specialty Start Date End Date Tata Singh NP [address] [place] [address] PCP - General 09/27/08 documented as of this encounter
--- OUTSIDE RECORDS SUMMARY | 2024-03-29 11:56 | XMS_ITS | Encounter Summary ---
Author Organization [facility] Address [address] [place] [address] Care Team Providers Care Crop And Soil Scientist Name Role Phone Columbakevin Tata SLOAN Primary Care Provider Encounter Details Date Type Department Care Team (Late st Contact Info) Description 04/20/2005 Results Only [facility] - [facility] conversion [address] [place] [address] Nora Murillo, [facility] [address] [place] [address] [place] [address] Social History Tobacco Use Types [...] ? MANUEL MONTERO ? Accession #: ? [id number] : ? 1980 (Age: 24) ??F ?Collect Date: ? 04/20/2005 Location: ? [facility] ? Receive Date: ? 04/21/2005 Provider: ?NORA MURILLO CITY SUPERVISOR Copy to: ? Specimen/Source: ?ThinPrep Pap Test, Cervix/Endocervix, processed on [employer] ThinPrep Imaging System, with manual evaluation Last [...] End of Report [facility] 04/20/2005 04/21/2005 us Nora Murillo CITY SUPERVISOR PATHOLOGY ORDERABLES Final R esult [facility] [address] [place] [address] documented in this encounter Visit Diagnoses Not on filedocumented in this encounter Care Teams Crop And Soil Scientist Relationship Specialty Start Date End Date Tata Singh NP [address] [place] [address] [address] [place] [address] PCP - General 09/27/08 documented as of this encounter
--- OUTSIDE RECORDS SUMMARY | 2024-03-29 11:56 | XMS_ITS | Encounter Summary ---
Author Organization [facility] Address [address] [place] [address] Care Team Providers Care Production Hardener Name Role Phone Tata Singh NP Primary Care Provider [phone] Encounter Details Date Type Department Care Team (Late st Contact Info) Description 04/15/2003 Results Only [facility] - Maple conversion [address] [place] [address] Pearl Edge, NATHALIA Social History Tobacco Use Types Packs/Day Years [...] 68. [facility] Report Status Final [id number] [facility] 04/15/2003 14:2 0 EST 04/25/2003 10:24 EST us Pearl Edge REST ROOM [facility] MICROBIOLOGY - GENERAL ORDERA BRYAN Final Result [facility] [address] [place] [address] * CYTOPATHOLOGY (04/15/2003 0:00 EST) Pathology Report: CYTOPATHOLOGY REPORT Reports generated via electronic interface contain original data; however they are lacking the format of the original report. Caution should be taken when reading/interpreti ng unformatted reports. Name: ? WINSTON MANUEL ? Accession #: ? [id number] : ? 1980 (Age: 22) ??F ?Collect Date: ? 04/15/2003 Location: ? [facility] ? Receive Date: ? 04/17/2003 Provider: ?PEARL EDGE REST ROOM MATRON Copy to: ? Specimen/Source: ?ThinPrep Pap Test, [...] cells, undetermined significance. EDUCATIONAL NOTES/RECOMMENDATI ONS ? [facility] recommends following the 2001 Consensus Guidelines for the Management of Women with Cervical Cytological Abnormalities ([place]AR[place],2002;287:212 0-9). Management algorithms have been distributed by [facility] and are available online at www.ASCCP.org. ? Document reviewed and electronically signed by: ? Ashley English MD ? Report Date: ??04/24/2003 13:41 End of Report [facility] 04/15/2003 04/17/2003 us Pearl Edge REST ROOM MATRON PATHOLOGY ORDERABLES Final Re sult Performing Organization Address City/State/[facility] Co de Phone Number [facility] [address] [place] [address] documented in this encounter Visit Diagnoses Not on filedocumented in this encounter Care Teams Production Hardener Relationship Specialty Start Date End Date Tata Singh NP [address] [place] [address] [address] [place] [address] PCP - General 09/27/08 documented as of this encounter
--- OUTSIDE RECORDS SUMMARY | 2024-03-29 11:56 | XMS_ITS | Encounter Summary ---
Author Organization [facility] Address [address] [place] [address] Care Team Providers Care Food Chemist Name Role Phone Francisco Tata SLOAN Primary Care Provider Encounter Details Date Type Department Care Team (Late st Contact Info) Description 09/28/2006 Results Only [facility] conversion [address] [place] [address] [place] [place] [id number] Social History Tobacco Use Types Packs/Day Years [...] ? MANUEL MONTERO ? Accession #: ? [id number] : ? 1980 (Age: 26) ??F ?Collect Date: ? 09/28/2006 Location: ? [facility] ? Receive Date: ? 09/29/2006 Provider: ?ANGELINE FERNANDEZ CNM Copy to: ? Specimen/Source: ?ThinPrep Pap Test, Cervix/Endocervix, processed on [employer] ThinPrep Imaging System, with manual evaluation Last [...] and electronically signed by: ? Angeline Gilliam, SCT(ASCP) ? Report Date: ??10/06/2006 09:21 End of Report [facility] 09/28/2006 09/29/2006 us Angeline Fernandez CNM PATHOLOGY ORDERABLES Final Res ult [facility] [address] [place] [address] documented in this encounter Visit Diagnoses Not on filedocumented in this encounter Care Teams Food Chemist Relationship Specialty Start Date End Date Tata Singh NP [address] [place] [address] [address] [place] [address] PCP - General 09/27/08 documented as of this encounter
--- OUTSIDE RECORDS SUMMARY | 2024-03-29 11:56 | XMS_ITS | Encounter Summary ---
Author Organization [facility] Address [address] [place] [address] Care Team Providers Care Online Tutor Name Role Phone Columbakevin Tata HANDER IN Primary Care Provider Encounter Details Date Type Department Care Team (Late st Contact Info) Description 03/20/2010 Results Only [facility] Laboratory Services - [facility] ([facility]) [address] [place], [place] [address] Nora Murillo, [facility] [address] [place] [address] [place] [address] Social History Tobacco Use Types [...] ? MANUEL MONTERO ? Accession #: ? [id number] ? : ? 1980 (Age: 29) ??F ?Collect Date: ? 03/20/2010 ? Location: ? [facility] ? Receive Date: ? 03/23/2010 ? Provider: ?NORA JEFFREY NURSING MANAGER ? Copy to: ? Specimen/Source: ?Pap Test, [...] Report ? [facility] 03/20/2010 03/23/2010 us Nora Murillo NURSING MANAGER PATHOLOGY ORDERABLES Final R esult [facility] [address] [place] [address] documented in this encounter Visit Diagnoses Not on filedocumented in this encounter Care Teams Online Tutor Relationship Specialty Start Date End Date Tata Singh NP [address] [place] [id number] PCP - General 09/27/08 documented as of this encounter
[2024-03-29 15:02] LABS: Calculated LDL 61 mg/dL (<100); Cholesterol 152 mg/dL (<200); HDL Cholesterol 65 mg/dL (40-60); Triglyceride 132 mg/dL (<150)
== END 2024-03-29 11:56 | disposition home or self-care (01) ==
LOC: NCHCN 11:55
PROVIDERS: PCP Student in an Organized Health Care Education/Training Program; Visit Provider Student in an Organized Health Care Education/Training Program
DX: E11.9 Type 2 diabetes mellitus without complications (principal)
CPT/HCPCS: 80061

== ENCOUNTER 2024-11-15 14:47 | Outpatient (CLI) | payer BC, SELFPAY ==
--- NOTE | 2024-11-15 13:11 | DI.RAD_ITS ---
Exam(s) XR FOOT RT COMPLETE EXAM: XR FOOT RT COMPLETE CLINICAL HISTORY: Rt foot pain, M79.671, rt heel pain, likely Achilles tendinopathy, partial. TECHNIQUE: 2D digital imaging was performed. Three views. COMPARISON: CR RIGHT FOOT COMPLETE from 07/28/2008 FINDINGS: BONES: No acute fracture is present. No bony destructive lesion is seen. There is an enthesophyte at the Achilles insertion as well as at the plantar fascia. JOINTS: No dislocation present. No significant degenerative changes. SOFT TISSUE: No visible soft tissue swelling in region of Achilles tendon. IMPRESSION: Calcaneal enthesophytes. DATA REPOSITORY: RADIATION DOSE DELIVERED:
[2024-11-15 15:35] LABS: ALT 28 U/L (14-59); AST 25 U/L (15-37); Albumin 4.0 g/dL (3.4-5.0); Alkaline Phosphatase 79 U/L (46-116); Anion Gap 8.8 mmol/L (3-11); BUN 10 mg/dL (7-18); Bilirubin, Total 0.8 mg/dL (0.2-1.0); CO2 27.2 mmol/L (21.0-32.0); Calcium 9.1 mg/dL (8.5-10.1); Chloride 103 mmol/L (98-107); Estimated GFR 107.95 (mL/min/1.73m2); Glucose 197 mg/dL (74-106); Magnesium 1.8 mg/dL (1.8-2.4); Potassium 4.5 mmol/L (3.5-5.1); Sodium 139 mmol/L (136-145); Total Protein 7.7 g/dL (6.4-8.2)
== END 2024-11-15 14:48 | disposition home or self-care (01) ==
LOC: LBO 14:48
PROVIDERS: PCP Student in an Organized Health Care Education/Training Program; Visit Provider Student in an Organized Health Care Education/Training Program
DX: M79.671 Pain in right foot (principal); M77.31 Calcaneal spur, right foot
CPT/HCPCS: 36415; 80053; 73630; 83735

== ENCOUNTER 2024-11-15 16:28 | Outpatient (REF) | payer BC, SELFPAY ==
[2024-11-15 19:33] LABS: COMMENT (LAB VIEW ONLY) 133.82 mg/dL; Microalb ug/mg Crea 12.1 ug/mg Cr
== END 2024-11-15 16:29 | disposition home or self-care (01) ==
LOC: NCHCN 16:28
PROVIDERS: PCP Student in an Organized Health Care Education/Training Program; Visit Provider Student in an Organized Health Care Education/Training Program
DX: E11.9 Type 2 diabetes mellitus without complications (principal)
CPT/HCPCS: 82043; 82570